=== PATIENT | female | born 1985 | race Caucasian/White ===

== ENCOUNTER 2016-12-05 22:58 | Emergency (ER) | payer OTHER ==
[2016-12-05] MEDS ORDERED: Sodium Chloride 0.9% 1000 ML 1,000 ML IV STA (23:24)
[2016-12-05] MEDS ORDERED: DILANTIN IV 250 MG/5 ML*** 1,000 MG in Sodium Chloride 0.9% 100 ML IVPB 100 ML IV ONE (23:24)
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
[2016-12-05 23:37] LABS: BASOPHIL % 0.1 % (0.0-0.4); Eosinophil % 5.8 % (0.00-5.0); Granulocytes % 66.6 % (36.0-66.0); Lymphocytes % 21.2 % (24.0-44.0); Mean Cell Volume 91.6 fl (78-100); Mean Platelet Volume 9.6 fl (6-9.5); Monocytes % 6.3 % (0.0-12.0); Platelet Count 261 K/mm3 (150-450); Red Blood Count 3.81 M/mm3 (4.1-5.4); Red Cell Distribution Width 12.3 % (11.5-14.0); White Blood Count 6.9 K/mm3 (4.0-10.5)
[2016-12-05 23:38] LABS: Mean Corpuscular Hemoglobin 31.4 pg (26-32)
[2016-12-05 23:48] LABS: Lactic Acid 2.6 (0.4-2.0)
[2016-12-05 23:56] LABS: ALKALINE PHOSPHATASE 43 U/L (46-116); ANION GAP 17.6 MEQ/L (5-15); BLOOD UREA NITROGEN 9 mg/dL (9-20); CHLORIDE 108 mEq/L (98-107); Carbon Dioxide 22.3 mEq/L (21-32); Glucose 104 MG/DL (70-110); Potassium 3.5 mEq/L (3.5-5.1); SGOT/AST 20 U/L (15-37); SGPT/ALT 19 U/L (12-78); SODIUM 144 mEq/L (136-145); Total Protein 7.3 gm/dL (6.4-8.2)
[2016-12-05] MEDS ORDERED: Sodium Chloride 0.9% 1000 ML 1,000 ML ONE (23:56)
[2016-12-05] MEDS ORDERED: Dilantin 100 MG/2 ML ONE (23:56)
[2016-12-05] MEDS ORDERED: cereBYX 50 MG/ML*** 1,000 MG in Sodium Chloride 0.9% 100 ML IVPB 100 ML IV ONE (23:57)
[2016-12-06] MEDS ORDERED: cereBYX 50 MG/ML ONE ×3 (00:11→00:26)
[2016-12-06] MEDS ORDERED: Sodium Chloride 0.9% 100 ML IVPB 100 ML IV ONE (00:23)
[2016-12-06 01:06] LABS: ADD URINE CULTURE? NO (NO); Bilirubin NEGATIVE (NEGATIVE); Blood NEGATIVE Ery/ul (0-5); COMPLETE URINE MICROSCOPIC? NO; Collection Type CLEAN CATCH; Glucose NEGATIVE (NEGATIVE); Leukocyte Esterase NEGATIVE (NEGATIVE)
[2016-12-06] MEDS ORDERED: Ativan 1 MG ONE (01:32)
[2016-12-06] MEDS: Ativan 1 MG PO ONE ×2 (01:34→01:45)
[2016-12-06 03:12] VITALS: BP 106/74; PULSE 80; O2SAT 96
== END 2016-12-06 03:00 | disposition home or self-care (01) ==
LOC: ED 22:58
DX: R56.9 Unspecified convulsions (principal); Z79.899 Other long term (current) drug therapy; Z79.891 Long term (current) use of opiate analgesic
CPT/HCPCS: 36000; 36415; 80053; 80185; 80307; 81002; 82550; 83605; 84484; 84703; 85025; 93005; 93041; 96360; 96365; 96368; 99284; 99285; G0481; J1165; Q2009; A9270-GY

== ENCOUNTER 2019-10-22 14:38 | Emergency (ER) | payer OTHER ==
[2019-10-22] MEDS ORDERED: Adacel Vial IM ONE ×2 (14:48→14:51)
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
[2019-10-22 15:12] VITALS: BP 115/68; PULSE 76; O2SAT 97
--- NOTE | 2019-10-22 21:45 | XRAY ---
Indication: Puncture wound. 3rd finger and wrist numbness. Comparison: None 3 view left hand obtained. No bony, articular, or soft tissue abnormalities.
== END 2019-10-22 15:14 | disposition home or self-care (01) ==
LOC: ED 14:38
DX: S61.412A Laceration without foreign body of left hand, initial encounter (principal); W26.0XXA Contact with knife, initial encounter
CPT/HCPCS: 12001; 73130; 90471; 90715; 99284

== ENCOUNTER 2019-11-26 01:27 | Emergency (ER) | payer OTHER ==
[2019-11-26] MEDS ORDERED: VERSED 5 MG/5 ML ONE (01:32)
[2019-11-26] MEDS ORDERED: Zofran 4 MG/2 ML VIAL IV ONE (01:34)
[2019-11-26] MEDS ORDERED: Keppra 500 MG/5 ML*** 1,000 MG in D5w 100ML Mini Bag 100 ML 100 ML IV ONE (01:34)
[2019-11-26] MEDS ORDERED: Sodium Chloride 0.9% 1000 ML 1,000 ML IV STA ×3 (01:34→03:39)
[2019-11-26] MEDS ORDERED: CEREBYX IV ONE ×2 (01:34→02:30)
[2019-11-26] MEDS ORDERED: Sodium Chloride 0.9% 1000 ML 1,000 ML ONE ×4 (01:34→05:38)
[2019-11-26] MEDS ORDERED: SODIUM CHLORIDE 0.9% IV ONE ×2 (01:34→02:30)
[2019-11-26] MEDS ORDERED: Ativan 2 MG/1 ML VIAL IV ONE (01:34)
[2019-11-26] MEDS ORDERED: Keppra 500 MG/5 ML ONE (01:37)
[2019-11-26] MEDS ORDERED: Ativan 2 MG/1 ML VIAL ONE (01:40)
[2019-11-26] MEDS ORDERED: Sodium Chloride 0.9% 100 ML IVPB 100 ML IV ONE ×2 (01:41→03:04)
--- NOTE | 2019-11-26 01:46 | ERPHSYRPT ---
- History of Present Illness Time Seen by Provider: 11/26/19 01:41 Source: patient, EMS Exam Limitations: clinical condition Physician History: pt has hx seizure disorder and was at [facility] today and had 4 seizures then went into status and was brought by ambulance to ER- seizures controlled after 2 MG versed and 2 MG Ativan IV , loading with Keppra 1000 and toping off dilantin with 250 phosphyenytoin pending level ( already taking dilantin) No sign of trauma , no fever or symptoms; No Neuro deficits some ETOh reported today. Timing/Duration: today Severity: severe Character of Deficits: none Deficits: no difficulties Baseline/Normal Cognition: alert oriented x 3 Current Cognition: alert but confused Baseline Gait: walks w/o assistance Associated Symptoms: seizures Allergies/Adverse Reactions: No Known Drug Allergies Allergy (Verified 10/22/19 14:47) Home Medications: Topiramate 25 mg [Topamax 25 MG] 0 mg PO HS 09/30/15 [History] Topiramate [Trokendi Xr] 1 ea DAILY 10/22/19 [History] Hx Tetanus, Diphtheria Vaccination/Date Given: No Hx Influenza Vaccination/Date Given: No Hx Pneumococcal Vaccination/Date Given: No - Review of Systems Constitutional: No Fever, No Chills Eyes: No Symptoms Ears, Nose, & Throat: No Symptoms Respiratory: No Cough, No Dyspnea Cardiac: No Chest Pain, No Edema, No Syncope Abdominal/Gastrointestinal: No Abdominal Pain, No Nausea, No Vomiting, No Diarrhea Genitourinary Symptoms: No Dysuria Musculoskeletal: No Back Pain, No Neck Pain Skin: No Rash Neurological: No Dizziness, No Focal Weakness, No Sensory Changes Psychological: No Symptoms Endocrine: No Symptoms Hematologic/Lymphatic: No Symptoms Immunological/Allergic: No Symptoms All Other Systems: Reviewed and Negative - Past Medical History Pertinent Past Medical History: Yes Neurological History: Seizures ENT History: No Pertinent History Cardiac History: No Pertinent History Respiratory History: No Pertinent History Endocrine Medical History: No Pertinent History Musculoskeletal History: No Pertinent History GI Medical History: Gallbladder Disease History: No Pertinent History Psycho-Social History: Anxiety, Depression, Panic Disorder Female Reproductive Disorders: Cervical Cancer Other Medical History: Last seizure was in 06/2019. Pt is taking meds. - Past Surgical History Past Surgical History: Yes Neuro Surgical History: No Pertinent History Cardiac: No Pertinent History Respiratory: No Pertinent History Gastrointestinal: Cholecystectomy Genitourinary: No Pertinent History Musculoskeletal: No Pertinent History Female Surgical History: Other - Social History Smoking Status: Never smoker How long have you smoked: 20 Exposure to second hand smoke: No Drug Use: none Patient Lives Alone: No - Female History Hx Now: No - Nursing Vital Signs Nursing Vital Signs: Initial Vital Signs Pulse Rate 78 11/26/19 01:32 Blood Pressure 117/84 11/26/19 01:32 - Francisco Coma Scale Best Eye Response (Francisco): (2) open to pain Best Verbal Response (Francisco): (4) confused conversation Best Motor Response (Francisco): (5) localizes to pain [place] Total: 11 - Physical Exam General Appearance: no apparent distress, alert Eye Exam: bilateral eye: PERRL, EOMI Ears, Nose, Throat Exam: normal ENT inspection, moist mucous membranes Neck Exam: normal inspection, non-tender, supple Respiratory: normal breath sounds, lungs clear, airway intact, No respiratory distress Cardiovascular: regular rate/rhythm, No edema Gastrointestinal: soft, No tenderness, No distention Pelvic Exam: deferred Rectal Exam: deferred Back Exam: normal inspection Extremity Exam: normal inspection, No pedal edema Peripheral Pulses: carotid (R): 2+, carotid (L): 2+, femoral (R): 2+, femoral (L): 2+, dorsalis-pedis (R): 2+, dorsalis-pedis (L): 2+ Mental Status: agitated, lethargy forming acid dumper Exam: PERRL, tongue midline Motor/Sensory: no motor deficit DTR: bicep (R): 2+, bicep (L): 2+, tricep (R): 2+, tricep (L): 2+, knee (R): 2+, knee (L): 2+, ankle (R): 2+, ankle (L): 2+ Skin Exam: normal color, warm, dry, No rash SpO2 Interpretation: normal, ABG ordered SpO2: 100 O2 Delivery: BiPap/CPAP - Course Nursing assessment & vital signs reviewed: Yes EKG Interpreted by Me: Sinus Tach, NORMAL AXIS, NORMAL INTERVALS, NORMAL QRS, Non-specific ST Changes - Radiology Exams Chest X-ray Interpretation: Reviewed by me, No Pneumonia, No Pneumothorax, Other (RUL nodule and granulomata) - CT Exams Head CT Interpretation: Tele-radiologist Report, No/Intracranial Hemorrhag Ordered Tests: Active Orders 24 hr Category Date Time Status Accucheck STAT Care 11/26/19 01:34 Active CO2 Monitoring STAT Care 11/26/19 02:00 Active Continuous Loft Operator STAT Care 11/26/19 01:36 Active Catheter-[place] Gonzalez STAT Care 11/26/19 01:34 Active EKG-ER Only STAT Care 11/26/19 01:34 Active IV Insertion STAT Care 11/26/19 01:34 Active Pulse Oximetry (ED) STAT Care 11/26/19 01:34 Active Rectal Temperature STAT Care 11/26/19 01:34 Active Seizure Precautions -SCCHED STAT Care 11/26/19 01:34 Active CHEST 1 VIEW (PORTABLE) Stat Exams 11/26/19 01:54 Taken HEAD WITHOUT CONTRAST [CT] Stat Exams 11/26/19 01:35 Taken ACETAMINOPHEN Stat Lab 11/26/19 01:48 Completed ARTERIAL BLOOD GASES Urgent Lab 11/26/19 03:33 Completed ARTERIAL BLOOD GASES Urgent Lab 11/26/19 04:35 Completed CBC W DIFF Stat Lab 11/26/19 01:48 Completed CK-Creatinine Phosphokinase Stat Lab 11/26/19 01:48 Completed CMP Stat Lab 11/26/19 01:48 Completed CULTURE,URINE Stat Lab 11/26/19 02:25 Received ETHYL ALCOHOL Stat Lab 11/26/19 01:48 Completed HCG QUALITATIVE,SERUM Stat Lab 11/26/19 01:48 Completed Lactic Acid Routine Lab 11/26/19 03:33 Completed Lactic Acid Stat Lab 11/26/19 01:48 Completed Lactic Acid Stat Lab 11/26/19 04:04 Received SALICYLATE Stat Lab 11/26/19 01:48 Completed UA W/RFX UR CULTURE Stat Lab 11/26/19 02:25 Completed Urine Triage Profile Stat Lab 11/26/19 02:25 Completed Standby STAT RT 11/26/19 02:34 Active Medication Summary Discontinued Medications Generic Name Dose Route Start Last Admin Trade Name Freq PRN Reason Stop Dose Admin Fosphenytoin Sodium Confirm 11/26/19 03:03 Cerebyx 50 Mg/Ml Administered 11/26/19 03:04 Dose 1,000 mg .ROUTE .STK-MED ONE Sodium Chloride 1,000 mls @ 999 mls/hr 11/26/19 01:34 11/26/19 04:20 Sodium Chloride 0.9% 1000 Ml IV 11/26/19 02:34 Infused .Q1H1M STA Infusion Levetiracetam 1,000 mg/ 110 mls @ 400 mls/hr 11/26/19 01:34 11/26/19 01:50 Dextrose IV 11/26/19 01:50 400 mls/hr STAT ONE Administration Fosphenytoin Sodium 250 mg/ 105 mls @ 300 mls/hr 11/26/19 01:34 11/26/19 01:58 Sodium Chloride IV 11/26/19 01:54 300 mls/hr STAT ONE Administration Sodium Chloride Confirm 11/26/19 01:41 Sodium Chloride 0.9% 100 Ml Ivpb Administered 11/26/19 01:42 Dose 100 mls @ ud IV .STK-MED ONE Sodium Chloride Confirm 11/26/19 02:28 Sodium Chloride 0.9% 1000 Ml Administered 11/26/19 02:29 Dose 1,000 mls @ ud .ROUTE .STK-MED ONE Fosphenytoin Sodium 750 mg/ 115 mls @ 300 mls/hr 11/26/19 02:30 11/26/19 03:14 Sodium Chloride IV 11/26/19 02:52 300 mls/hr STAT ONE Administration Sodium Chloride 1,000 mls @ 999 mls/hr 11/26/19 02:34 11/26/19 04:22 Sodium Chloride 0.9% 1000 Ml IV 11/26/19 03:34 Infused .Q1H1M STA Infusion Sodium Chloride Confirm 11/26/19 03:04 Sodium Chloride 0.9% 100 Ml Ivpb Administered 11/26/19 03:05 Dose 100 mls @ ud IV .STK-MED ONE Sodium Chloride 1,000 mls @ 999 mls/hr 11/26/19 03:39 11/26/19 04:08 Sodium Chloride 0.9% 1000 Ml IV 11/26/19 04:39 999 mls/hr .Q1H1M STA Administration Sodium Chloride Confirm 11/26/19 04:00 Sodium Chloride 0.9% 1000 Ml Administered 11/26/19 04:01 Dose 1,000 mls @ ud .ROUTE .STK-MED ONE Lorazepam 2 mg 11/26/19 01:34 11/26/19 01:44 Ativan 2 Mg/1 Ml Vial IV 11/26/19 01:35 2 mg STAT ONE Administration Lorazepam Confirm 11/26/19 01:40 Ativan 2 Mg/1 Ml Vial Administered 11/26/19 01:41 Dose 2 mg .ROUTE .STK-MED ONE Ondansetron HCl 4 mg 11/26/19 01:34 11/26/19 03:07 Zofran 4 Mg/2 Ml Vial IV 11/26/19 01:35 4 mg STAT ONE Administration Ondansetron HCl Confirm 11/26/19 03:05 Zofran 4 Mg/2 Ml Vial Administered 11/26/19 03:06 Dose 4 mg .ROUTE .STK-MED ONE Lab/Rad Data: Laboratory Result Diagrams 11/26/19 01:48 11/26/19 01:48 Laboratory Results 11/26/19 11/26/19 11/26/19 Range/Units 04:35 03:33 03:33 WBC (4.0-10.5) K/mm3 RBC (4.1-5.4) M/mm3 Hgb (12.0-16.0) gm/dl Hct (35-47) % MCV (78-100) fl MCH (26-32) pg MCHC (32-36) g/dl RDW (11.5-14.0) % Plt Count (150-450) K/mm3 MPV (7.5-11.0) fl Gran % (36.0-66.0) % Eos # (Auto) (0-0.5) Absolute Lymphs (auto) (1.0-4.6) Absolute Monos (auto) (0.0-1.3) Lymphocytes % (24.0-44.0) % Monocytes % (0.0-12.0) % Eosinophils % (0.00-5.0) % Basophils % (0.0-0.4) % Absolute Granulocytes (1.4-6.9) Basophils # (0-0.4) Puncture Site RIGHT BRACHIAL RIGHT BRACHIAL pCO2 45 51 H (35-45) mmHg pO2 132 H* 139 H* (75-100) mmHg Base Excess -5.0 L -4.0 L (-2.0-2.0) O2 Saturation 96.5 96.3 (94-100) g/dF ABG pH 7.29 L 7.27 L (7.35-7.45) ABG HCO3 21.6 L 23.4 (22-28) ABG O2 Sat (Measured) 98.6 99.2 (95-100) % Milo Test NOT APPLICABLE NOT APPLICABLE A-a Gradient -10 -3 a/A Ratio 1.08 1.02 Hemoglobin 11.9 11.8 Carboxyhemoglobin 1.3 1.8 (0.0-6.9) % THgb Methemoglobin 0.9 L 1.0 L (1.4-1.5) % Temperature 37.0 37.0 C POC O2 Flow Rate 25 28 % Inspiratory BiPAP 12 Expiratory BiPAP 6 Sodium (137-145) mmol/L Potassium 3.6 3.3 L (3.5-5.1) mmol/L Chloride (98-107) mmol/L Carbon Dioxide (22-30) mmol/L Anion Gap (5-15) MEQ/L BUN (7-17) mg/dL Creatinine (0.52-1.04) mg/dL Estimated GFR ML/MIN Glucose (74-106) mg/dL Lactic Acid 2.5 H (0.4-2.0) Calcium (8.4-10.2) mg/dL Total Bilirubin (0.2-1.3) mg/dL AST (14-36) U/L ALT (0-35) U/L Alkaline Phosphatase (38-126) U/L Creatine Kinase (30-135) U/L Serum Total Protein (6.3-8.2) g/dL Albumin (3.5-5.0) g/dL Serum , Qual (Negative) Urine Color (YELLOW) Urine Appearance (CLEAR) Urine pH (5-6) Ur Specific [place] (1.005-1.025) Urine Protein (Negative) Urine Ketones (NEGATIVE) Urine Blood (0-5) Rom/ul Urine Nitrite (NEGATIVE) Urine Bilirubin (NEGATIVE) Urine Urobilinogen (0-1) mg/dL Ur Leukocyte Esterase (NEGATIVE) Urine WBC (Auto) (0-5) /HPF Urine RBC (Auto) (0-2) /HPF U Epithel Cells (Auto) (FEW) /HPF Urine Bacteria (Auto) (NEGATIVE) /HPF Urine Mucus (Auto) (NEGATIVE) /HPF Urine Culture Reflexed (NO) Urine Glucose (NEGATIVE) mg/dL Salicylates (2-20) mg/dL Urine Opiates Level (NEGATIVE) Ur Methadone (NEGATIVE) Acetaminophen (10-30) ug/ml Urine Barbiturates (NEGATIVE) Phenytoin (10-20) ug/mL Ur Phencyclidine (PCP) (NEGATIVE) Urine Amphetamine (NEGATIVE) U Benzodiazepine Level (NEGATIVE) Urine Cocaine (NEGATIVE) Urine Marijuana (THC) (NEGATIVE) Ethyl Alcohol (0-10) mg/dL 11/26/19 11/26/19 11/26/19 Range/Units 02:25 02:25 01:48 WBC (4.0-10.5) K/mm3 RBC (4.1-5.4) M/mm3 Hgb (12.0-16.0) gm/dl Hct (35-47) % MCV (78-100) fl MCH (26-32) pg MCHC (32-36) g/dl RDW (11.5-14.0) % Plt Count (150-450) K/mm3 MPV (7.5-11.0) fl Gran % (36.0-66.0) % Eos # (Auto) (0-0.5) Absolute Lymphs (auto) (1.0-4.6) Absolute Monos (auto) (0.0-1.3) Lymphocytes % (24.0-44.0) % Monocytes % (0.0-12.0) % Eosinophils % (0.00-5.0) % Basophils % (0.0-0.4) % Absolute Granulocytes (1.4-6.9) Basophils # (0-0.4) Puncture Site pCO2 (35-45) mmHg pO2 (75-100) mmHg Base Excess (-2.0-2.0) O2 Saturation (94-100) g/dF ABG pH (7.35-7.45) ABG HCO3 (22-28) ABG O2 Sat (Measured) (95-100) % Milo Test A-a Gradient a/A Ratio Hemoglobin Carboxyhemoglobin (0.0-6.9) % THgb Methemoglobin (1.4-1.5) % Temperature C POC O2 Flow Rate % Inspiratory BiPAP Expiratory BiPAP Sodium (137-145) mmol/L Potassium (3.5-5.1) mmol/L Chloride (98-107) mmol/L Carbon Dioxide (22-30) mmol/L Anion Gap (5-15) MEQ/L BUN (7-17) mg/dL Creatinine (0.52-1.04) mg/dL Estimated GFR ML/MIN Glucose (74-106) mg/dL Lactic Acid (0.4-2.0) Calcium (8.4-10.2) mg/dL Total Bilirubin (0.2-1.3) mg/dL AST (14-36) U/L ALT (0-35) U/L Alkaline Phosphatase (38-126) U/L Creatine Kinase (30-135) U/L Serum Total Protein (6.3-8.2) g/dL Albumin (3.5-5.0) g/dL Serum , Qual NEGATIVE (Negative) Urine Color STRAW (YELLOW) Urine Appearance CLEAR (CLEAR) Urine pH 5.0 (5-6) Ur Specific [place] 1.004 (1.005-1.025) Urine Protein NEGATIVE (Negative) Urine Ketones NEGATIVE (NEGATIVE) Urine Blood NEGATIVE (0-5) Rom/ul Urine Nitrite NEGATIVE (NEGATIVE) Urine Bilirubin NEGATIVE (NEGATIVE) Urine Urobilinogen NEGATIVE (0-1) mg/dL Ur Leukocyte Esterase NEGATIVE (NEGATIVE) Urine WBC (Auto) NONE (0-5) /HPF Urine RBC (Auto) NONE (0-2) /HPF U Epithel Cells (Auto) NONE (FEW) /HPF Urine Bacteria (Auto) NONE SEEN (NEGATIVE) /HPF Urine Mucus (Auto) SLIGHT (NEGATIVE) /HPF Urine Culture Reflexed ORDERED SEPARATELY (NO) Urine Glucose NEGATIVE (NEGATIVE) mg/dL Salicylates (2-20) mg/dL Urine Opiates Level NEGATIVE (NEGATIVE) Ur Methadone NEGATIVE (NEGATIVE) Acetaminophen (10-30) ug/ml Urine Barbiturates NEGATIVE (NEGATIVE) Phenytoin (10-20) ug/mL Ur Phencyclidine (PCP) NEGATIVE (NEGATIVE) Urine Amphetamine NEGATIVE (NEGATIVE) U Benzodiazepine Level NEGATIVE (NEGATIVE) Urine Cocaine NEGATIVE (NEGATIVE) Urine Marijuana (THC) NEGATIVE (NEGATIVE) Ethyl Alcohol (0-10) mg/dL 11/26/19 11/26/19 11/26/19 Range/Units 01:48 01:48 01:48 WBC (4.0-10.5) K/mm3 RBC (4.1-5.4) M/mm3 Hgb (12.0-16.0) gm/dl Hct (35-47) % MCV (78-100) fl MCH (26-32) pg MCHC (32-36) g/dl RDW (11.5-14.0) % Plt Count (150-450) K/mm3 MPV (7.5-11.0) fl Gran % (36.0-66.0) % Eos # (Auto) (0-0.5) Absolute Lymphs (auto) (1.0-4.6) Absolute Monos (auto) (0.0-1.3) Lymphocytes % (24.0-44.0) % Monocytes % (0.0-12.0) % Eosinophils % (0.00-5.0) % Basophils % (0.0-0.4) % Absolute Granulocytes (1.4-6.9) Basophils # (0-0.4) Puncture Site pCO2 (35-45) mmHg pO2 (75-100) mmHg Base Excess (-2.0-2.0) O2 Saturation (94-100) g/dF ABG pH (7.35-7.45) ABG HCO3 (22-28) ABG O2 Sat (Measured) (95-100) % Milo Test A-a Gradient a/A Ratio Hemoglobin Carboxyhemoglobin (0.0-6.9) % THgb Methemoglobin (1.4-1.5) % Temperature C POC O2 Flow Rate % Inspiratory BiPAP Expiratory BiPAP Sodium 141 (137-145) mmol/L Potassium 3.6 (3.5-5.1) mmol/L Chloride 108 H (98-107) mmol/L Carbon Dioxide 21 L (22-30) mmol/L Anion Gap 16.0 H (5-15) MEQ/L BUN 9 (7-17) mg/dL Creatinine 0.48 L (0.52-1.04) mg/dL Estimated GFR > 60.0 ML/MIN Glucose 82 (74-106) mg/dL Lactic Acid 5.7 H (0.4-2.0) Calcium 8.7 (8.4-10.2) mg/dL Total Bilirubin 0.30 (0.2-1.3) mg/dL AST 37 H (14-36) U/L ALT 23 (0-35) U/L Alkaline Phosphatase 36 L (38-126) U/L Creatine Kinase 212 H (30-135) U/L Serum Total Protein 7.6 (6.3-8.2) g/dL Albumin 4.5 (3.5-5.0) g/dL Serum , Qual (Negative) Urine Color (YELLOW) Urine Appearance (CLEAR) Urine pH (5-6) Ur Specific [place] (1.005-1.025) Urine Protein (Negative) Urine Ketones (NEGATIVE) Urine Blood (0-5) Rom/ul Urine Nitrite (NEGATIVE) Urine Bilirubin (NEGATIVE) Urine Urobilinogen (0-1) mg/dL Ur Leukocyte Esterase (NEGATIVE) Urine WBC (Auto) (0-5) /HPF Urine RBC (Auto) (0-2) /HPF U Epithel Cells (Auto) (FEW) /HPF Urine Bacteria (Auto) (NEGATIVE) /HPF Urine Mucus (Auto) (NEGATIVE) /HPF Urine Culture Reflexed (NO) Urine Glucose (NEGATIVE) mg/dL Salicylates < 1.0 L (2-20) mg/dL Urine Opiates Level (NEGATIVE) Ur Methadone (NEGATIVE) Acetaminophen < 10 L (10-30) ug/ml Urine Barbiturates (NEGATIVE) Phenytoin < 3.0 L (10-20) ug/mL Ur Phencyclidine (PCP) (NEGATIVE) Urine Amphetamine (NEGATIVE) U Benzodiazepine Level (NEGATIVE) Urine Cocaine (NEGATIVE) Urine Marijuana (THC) (NEGATIVE) Ethyl Alcohol 212 H (0-10) mg/dL 11/26/19 Range/Units 01:48 WBC 10.4 (4.0-10.5) K/mm3 RBC 3.75 L (4.1-5.4) M/mm3 Hgb 12.3 (12.0-16.0) gm/dl Hct 36.3 (35-47) % MCV 96.8 (78-100) fl MCH 32.8 H (26-32) pg MCHC 33.9 (32-36) g/dl RDW 11.9 (11.5-14.0) % Plt Count 251 (150-450) K/mm3 MPV 9.9 (7.5-11.0) fl Gran % 67.2 H (36.0-66.0) % Eos # (Auto) 0.12 (0-0.5) Absolute Lymphs (auto) 2.65 (1.0-4.6) Absolute Monos (auto) 0.61 (0.0-1.3) Lymphocytes % 25.5 (24.0-44.0) % Monocytes % 5.9 (0.0-12.0) % Eosinophils % 1.2 (0.00-5.0) % Basophils % 0.2 (0.0-0.4) % Absolute Granulocytes 6.98 H (1.4-6.9) Basophils # 0.02 (0-0.4) Puncture Site pCO2 (35-45) mmHg pO2 (75-100) mmHg Base Excess (-2.0-2.0) O2 Saturation (94-100) g/dF ABG pH (7.35-7.45) ABG HCO3 (22-28) ABG O2 Sat (Measured) (95-100) % Milo Test A-a Gradient a/A Ratio Hemoglobin Carboxyhemoglobin (0.0-6.9) % THgb Methemoglobin (1.4-1.5) % Temperature C POC O2 Flow Rate % Inspiratory BiPAP Expiratory BiPAP Sodium (137-145) mmol/L Potassium (3.5-5.1) mmol/L Chloride (98-107) mmol/L Carbon Dioxide (22-30) mmol/L Anion Gap (5-15) MEQ/L BUN (7-17) mg/dL Creatinine (0.52-1.04) mg/dL Estimated GFR ML/MIN Glucose (74-106) mg/dL Lactic Acid (0.4-2.0) Calcium (8.4-10.2) mg/dL Total Bilirubin (0.2-1.3) mg/dL AST (14-36) U/L ALT (0-35) U/L Alkaline Phosphatase (38-126) U/L Creatine Kinase (30-135) U/L Serum Total Protein (6.3-8.2) g/dL Albumin (3.5-5.0) g/dL Serum , Qual (Negative) Urine Color (YELLOW) Urine Appearance (CLEAR) Urine pH (5-6) Ur Specific [place] (1.005-1.025) Urine Protein (Negative) Urine Ketones (NEGATIVE) Urine Blood (0-5) Rom/ul Urine Nitrite (NEGATIVE) Urine Bilirubin (NEGATIVE) Urine Urobilinogen (0-1) mg/dL Ur Leukocyte Esterase (NEGATIVE) Urine WBC (Auto) (0-5) /HPF Urine RBC (Auto) (0-2) /HPF U Epithel Cells (Auto) (FEW) /HPF Urine Bacteria (Auto) (NEGATIVE) /HPF Urine Mucus (Auto) (NEGATIVE) /HPF Urine Culture Reflexed (NO) Urine Glucose (NEGATIVE) mg/dL Salicylates (2-20) mg/dL Urine Opiates Level (NEGATIVE) Ur Methadone (NEGATIVE) Acetaminophen (10-30) ug/ml Urine Barbiturates (NEGATIVE) Phenytoin (10-20) ug/mL Ur Phencyclidine (PCP) (NEGATIVE) Urine Amphetamine (NEGATIVE) U Benzodiazepine Level (NEGATIVE) Urine Cocaine (NEGATIVE) Urine Marijuana (THC) (NEGATIVE) Ethyl Alcohol (0-10) mg/dL - Progress Progress: improved, re-examined Progress Note: 11/26/19 04:31 DIscussed with torres, STEPHANIE Parrish, and Saman Carrasco at [place] and none could accept pt due to no Neuro solution developer; Contacted [facility] awaiting return call 11/26/19 05:02 pt accepted by [facility] and discussed with Dr. Diaz the Neurologist accepting and will transfer by [facility] Discussed with Dr.: Other (Dr. Diaz) Will see patient in: hospital (full admit) Counseled pt/family regarding: lab results, diagnosis, need for follow-up, rad results - Departure Departure Disposition: Transfer Clinical Impression: Status epilepticus, RUL nodule Condition: Critical Critical Care Time: Yes Critical Care Time(excluding separately billable procedures): Critical 165-194 mins (management of status epilepticus and airway requiring continuous one on one support) Referrals: DOCTOR,NO FAMILY [Primary Care Provider] -
[2019-11-26] MEDS ORDERED: D5w 100ML Mini Bag 100 ML 100 ML IV ONE (01:47)
[2019-11-26] MEDS ORDERED: cereBYX 50 MG/ML ONE ×2 (01:48→03:03)
[2019-11-26 01:51] LABS: Absolute Neutrophil Ct (ANC) 6.98 (1.4-6.9); BASOPHIL % 0.2 % (0.0-0.4); Basophil (Absolute #) 0.02 (0-0.4); Eosinophil % 1.2 % (0.00-5.0); Eosinophil (Absolute #) 0.12 (0-0.5); Hematocrit 36.3 % (35-47); Hemoglobin 12.3 gm/dl (12.0-16.0); Lymphocyte (Absolute #) 2.65 (1.0-4.6); Lymphocytes % 25.5 % (24.0-44.0); Mean Cell Volume 96.8 fl (78-100); Mean Corpuscular Hemoglobin 32.8 pg (26-32); Mean Corpuscular Hgb Concent. 33.9 g/dl (32-36); Mean Platelet Volume 9.9 fl (7.5-11.0); Monocyte (Absolute #) 0.61 (0.0-1.3); Monocytes % 5.9 % (0.0-12.0); Neutrophil % 67.2 % (36.0-66.0); Platelet Count 251 K/mm3 (150-450); Red Blood Count 3.75 M/mm3 (4.1-5.4); Red Cell Distribution Width 11.9 % (11.5-14.0); White Blood Count 10.4 K/mm3 (4.0-10.5)
[2019-11-26 02:03] LABS: ALBUMIN 4.5 g/dL (3.5-5.0); ALKALINE PHOSPHATASE 36 U/L (38-126); BLOOD UREA NITROGEN 9 mg/dL (7-17); CHLORIDE 108 mmol/L (98-107); CK-Creatinine Phosphokinase 212 U/L (30-135); Calcium 8.7 mg/dL (8.4-10.2); Carbon Dioxide 21 mmol/L (22-30); Creatinine 1 0.48 mg/dL (0.52-1.04); ETHYL ALCOHOL 212 mg/dL (0-10); Glucose 82 mg/dL (74-106); Potassium 3.6 mmol/L (3.5-5.1); SGOT/AST 37 U/L (14-36); SGPT/ALT 23 U/L (0-35); SODIUM 141 mmol/L (137-145); Total Protein 7.6 g/dL (6.3-8.2)
[2019-11-26 02:22] LABS: ACETAMINOPHEN < 10 ug/ml (10-30); SALICYLATE < 1.0 mg/dL (2-20)
[2019-11-26 02:32] LABS: Appearance CLEAR (CLEAR); Bilirubin NEGATIVE (NEGATIVE); Blood NEGATIVE Ery/ul (0-5); Glucose NEGATIVE (NEGATIVE); Ketones NEGATIVE (NEGATIVE); Leukocyte Esterase NEGATIVE (NEGATIVE); Mucus SLIGHT /HPF (NEGATIVE); Nitrite NEGATIVE (NEGATIVE); Protein,Urine Dip NEGATIVE (Negative); Specific Gravity 1.004 (1.005-1.025); Urobilinogen NEGATIVE mg/dL (0-1)
[2019-11-26 02:33] LABS: Bacteria NONE SEEN /HPF (NEGATIVE)
[2019-11-26 02:45] LABS: Amphetamine,Urine NEGATIVE (NEGATIVE); Barbiturate,Urine NEGATIVE (NEGATIVE); Benzodiazepine,Urine NEGATIVE (NEGATIVE); Cocaine,Urine NEGATIVE (NEGATIVE); Methadone,Urine NEGATIVE (NEGATIVE); Opiate,Urine NEGATIVE (NEGATIVE); PCP,Urine NEGATIVE (NEGATIVE); THC,Urine NEGATIVE (NEGATIVE)
[2019-11-26] MEDS ORDERED: Zofran 4 MG/2 ML VIAL ONE (03:05)
[2019-11-26 03:40] LABS: A-aADO2 -3; ABG HEMOGLOBIN 11.8; ABG POTASSIUM 3.3 (3.5-5.1); ARTERIAL BLD GAS O2 SATURATION 99.2 % (95-100); ARTERIAL BLOOD GAS FIO2 28 %; ARTERIAL BLOOD GAS PCO2 51 mmHg (35-45); ARTERIAL BLOOD GAS PO2 139 mmHg (75-100); ARTERIAL BLOOD GAS pH 7.27 (7.35-7.45); CARBOXYHEMOGLOBIN 1.8 % THgb (0.0-6.9); HCO3- 23.4 (22-28); HGB O2 SAT 96.3 g/dF (94-100); paO2 pAO1 1.02
[2019-11-26 03:41] LABS: ABG SITE RIGHT BRACHIAL
[2019-11-26 04:15] VITALS: O2SAT 100
[2019-11-26 04:44] LABS: A-aADO2 -10; ABG HEMOGLOBIN 11.9; ABG POTASSIUM 3.6 (3.5-5.1); ABG SITE RIGHT BRACHIAL; ARTERIAL BLD GAS O2 SATURATION 98.6 % (95-100); ARTERIAL BLOOD GAS FIO2 25 %; ARTERIAL BLOOD GAS PCO2 45 mmHg (35-45); ARTERIAL BLOOD GAS PO2 132 mmHg (75-100); ARTERIAL BLOOD GAS pH 7.29 (7.35-7.45); CARBOXYHEMOGLOBIN 1.3 % THgb (0.0-6.9); HCO3- 21.6 (22-28); HGB O2 SAT 96.5 g/dF (94-100); Methhemoglobin 0.9 % (1.4-1.5); paO2 pAO1 1.08
[2019-11-26 06:08] VITALS: BP 108/71; PULSE 78
--- NOTE | 2019-11-26 06:44 | XRAY ---
Indication: Seizure. Apnea. Comparison: None Portable chest demonstrates normal heart, lungs, and bony thorax. Incidentally a few tiny calcified granulomas and bilateral jugular access IVs.
--- NOTE | 2019-11-26 06:44 | XRAY ---
Indication: Seizure. Apnea. Alcohol. Multiple contiguous axial images obtained through the head without contrast. Comparison: December 18, 2009. Normal appearing brain parenchyma, ventricles, and bony calvarium. Visualized paranasal sinuses and mastoid air cells are clear. Impression: Continued normal CT head without contrast exam. Comment: Preliminary interpretation was made by [facility]. No critical discrepancy.
== END 2019-11-26 06:10 | disposition short-term general hospital (02) ==
LOC: ED 01:27
DX: G40.801 Other epilepsy, not intractable, with status epilepticus (principal); R91.1 Solitary pulmonary nodule
CPT/HCPCS: 36000; 36415; 36600; 51702; 70450; 71045; 80053; 80185; 80307; 81001; 81025; 82375; 82550; 82803; 82962; 83605; 85025; 87086; 93005; 93041; 94002; 94760; 94770; 94799; 96360; 96361; 96365; 96367; 96374; 96375; 99285; 99291; 99292; J1953; J2060; J2250; J2405; Q2009; G0480

== ENCOUNTER 2020-01-27 20:13 | Observation (INO) | payer OTHER ==
[2020-01-27] MEDS ORDERED: cereBYX 50 MG/ML*** 500 MG in Sodium Chloride 0.9% 100 ML IVPB 100 ML IV ONE ×2 (20:19→21:33)
[2020-01-27] MEDS ORDERED: Sodium Chloride 0.9% 1000 ML 1,000 ML IV STA (20:19)
[2020-01-27] MEDS ORDERED: Keppra 500 MG/5 ML*** 1,000 MG in D5w 100ML Mini Bag 100 ML 100 ML IV ONE (20:19)
[2020-01-27] MEDS ORDERED: Ativan 2 MG/1 ML VIAL IV ONE (20:19)
--- NOTE | 2020-01-27 20:19 | ERPHSYRPT ---
- History of Present Illness Time Seen by Provider: 01/27/20 20:14 Source: patient, other (friends) Exam Limitations: clinical condition Physician History: pt was seen here for seizures about a month ago and [facility]- which have recurred tonight . she states she is on dilantin but had stopped keppra, but inview of seizures we are re-loading both. she hit head during seizure and will need CT. she has no neuro deficits. Timing/Duration: today Severity: severe Character of Deficits: none Deficits: no difficulties Baseline/Normal Cognition: alert but confused Current Cognition: alert but confused Baseline Gait: walks w/o assistance Associated Symptoms: seizures Allergies/Adverse Reactions: No Known Drug Allergies Allergy (Verified 10/22/19 14:47) Home Medications: Topiramate 25 mg [Topamax 25 MG] 0 mg PO HS 09/30/15 [History] Topiramate [Trokendi Xr] 1 ea DAILY 10/22/19 [History] Hx Tetanus, Diphtheria Vaccination/Date Given: No Hx Influenza Vaccination/Date Given: No Hx Pneumococcal Vaccination/Date Given: No - Review of Systems Constitutional: No Fever, No Chills Eyes: No Symptoms Ears, Nose, & Throat: No Symptoms Respiratory: No Cough, No Dyspnea Cardiac: No Chest Pain, No Edema, No Syncope Abdominal/Gastrointestinal: No Abdominal Pain, No Nausea, No Vomiting, No Diarrhea Genitourinary Symptoms: No Dysuria Musculoskeletal: No Back Pain, No Neck Pain Skin: No Rash Neurological: No Dizziness, No Focal Weakness, No Sensory Changes Psychological: No Symptoms Endocrine: No Symptoms All Other Systems: Reviewed and Negative - Past Medical History Pertinent Past Medical History: Yes Neurological History: Seizures ENT History: No Pertinent History Cardiac History: No Pertinent History Respiratory History: No Pertinent History Endocrine Medical History: No Pertinent History Musculoskeletal History: No Pertinent History GI Medical History: Gallbladder Disease History: No Pertinent History Psycho-Social History: Anxiety, Depression, Panic Disorder Female Reproductive Disorders: Cervical Cancer Other Medical History: Last seizure was in 06/2019. Pt is taking meds. - Past Surgical History Past Surgical History: Yes Neuro Surgical History: No Pertinent History Cardiac: No Pertinent History Respiratory: No Pertinent History Gastrointestinal: Cholecystectomy Genitourinary: No Pertinent History Musculoskeletal: No Pertinent History Female Surgical History: Other - Social History Smoking Status: Never smoker How long have you smoked: 20 Exposure to second hand smoke: No Drug Use: none Patient Lives Alone: No - Nursing Vital Signs Nursing Vital Signs: Initial Vital Signs Temperature 97.3 F 01/27/20 20:13 Pulse Rate 111 H 01/27/20 20:13 Respiratory Rate 20 01/27/20 20:13 Blood Pressure 137/83 01/27/20 20:13 O2 Sat by Pulse Oximetry 100 01/27/20 20:13 Pain Scale Pain Intensity 0 - Francisco Coma Scale Best Eye Response (Francisco): (4) open spontaneously Best Verbal Response (Morrice): (5) oriented Best Motor Response (Francisco): (6) obeys commands Morrice Total: 15 - Physical Exam General Appearance: no apparent distress, alert, other (intermit seizures) Eye Exam: bilateral eye: PERRL, EOMI Ears, Nose, Throat Exam: normal ENT inspection, moist mucous membranes Neck Exam: normal inspection, non-tender, supple Respiratory: normal breath sounds, lungs clear, airway intact, No respiratory distress Cardiovascular: regular rate/rhythm, No edema Gastrointestinal: soft, No tenderness, No distention Back Exam: normal inspection Extremity Exam: normal inspection, No pedal edema 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, 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: 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 midline Coordination/Gait: normal finger to nose, normal gait Skin Exam: normal color, warm, dry, No rash - Course Nursing assessment & vital signs reviewed: Yes EKG Interpreted by Me: Sinus Tach, NORMAL AXIS, NORMAL INTERVALS, Non-specific ST Changes - CT Exams Head CT Interpretation: Tele-radiologist Report, No Fracture, No/Intracranial Hemorrhag Cervical Spine CT Interpretation: Tele-radiologist Report, No Fracture, No Subluxation Ordered Tests: Active Orders 24 hr Category Date Time Status Assistant Service Manager STAT Care 01/27/20 20:20 Active Catheter-[place]ide Gonzalez STAT Care 01/27/20 20:19 Active EKG-ER Only STAT Care 01/27/20 20:19 Active IV Insertion STAT Care 01/27/20 20:19 Active NPO (ED) STAT Care 01/27/20 20:19 Active POCT Glucose Check STAT Care 01/27/20 20:19 Active Pulse Oximetry (ED) STAT Care 01/27/20 20:19 Active Seizure Precautions -SCCHED STAT Care 01/27/20 20:19 Active CERVICAL SPINE WO CONTRAST [CT] Stat Exams 01/27/20 20:20 Taken HEAD WITHOUT CONTRAST [CT] Stat Exams 01/27/20 20:19 Taken CBC W DIFF Stat Lab 01/27/20 20:14 Completed CMP Stat Lab 01/27/20 20:14 Completed CULTURE,URINE Stat Lab 01/27/20 02:45 Received ETHYL ALCOHOL Stat Lab 01/27/20 20:45 Completed HCG QUALITATIVE,SERUM Stat Lab 01/27/20 20:14 Completed Lactic Acid Stat Lab 01/27/20 20:19 Completed Lactic Acid Stat Lab 01/27/20 22:26 Received POCT GLUCOSE Stat Lab 01/27/20 21:10 Completed UA W/RFX UR CULTURE Stat Lab 01/27/20 20:45 Completed Urine Triage Profile Stat Lab 01/27/20 20:45 Completed Medication Summary Generic Name Dose Route Start Last Admin Trade Name Freq PRN Reason Stop Dose Admin Dextrose 500 mls @ 50 mls/hr 01/27/20 21:30 01/27/20 21:32 Dextrose 5%/Water Iv Soln. 500 Ml IV 02/26/20 21:29 50 mls/hr .Q10H ROB Administration Discontinued Medications Generic Name Dose Route Start Last Admin Trade Name Freq PRN Reason Stop Dose Admin Fosphenytoin Sodium Confirm 01/27/20 22:59 Cerebyx 50 Mg/Ml Administered 01/27/20 23:00 Dose 500 mg .ROUTE .STK-MED ONE Sodium Chloride 1,000 mls @ 999 mls/hr 01/27/20 20:19 Sodium Chloride 0.9% 1000 Ml IV 01/27/20 21:19 .Q1H1M STA Fosphenytoin Sodium 500 mg/ 110 mls @ 300 mls/hr 01/27/20 20:19 01/27/20 20:13 Sodium Chloride IV 01/27/20 20:40 300 mls/hr STAT ONE Administration Levetiracetam 1,000 mg/ 110 mls @ 400 mls/hr 01/27/20 20:19 01/27/20 21:25 Dextrose IV 01/27/20 20:35 400 mls/hr STAT ONE Administration Dextrose Confirm 01/27/20 21:11 D5w 100ml Mini Bag 100 Ml Administered 01/27/20 21:12 Dose 100 mls @ ud IV .STK-MED ONE Fosphenytoin Sodium 500 mg/ 110 mls @ 300 mls/hr 01/27/20 21:33 01/27/20 23:01 Sodium Chloride IV 01/27/20 21:54 300 mls/hr STAT ONE Administration Sodium Chloride Confirm 01/27/20 22:59 Sodium Chloride 0.9% 100 Ml Ivpb Administered 01/27/20 23:00 Dose 100 mls @ ud IV .STK-MED ONE Levetiracetam Confirm 01/27/20 21:09 Keppra 500 Mg/5 Ml Administered 01/27/20 21:10 Dose 500 mg .ROUTE .STK-MED ONE Levetiracetam Confirm 01/27/20 21:11 Keppra 500 Mg/5 Ml Administered 01/27/20 21:12 Dose 500 mg .ROUTE .STK-MED ONE Lorazepam 2 mg 01/27/20 20:19 Ativan 2 Mg/1 Ml Vial IV 01/27/20 20:20 STAT ONE Lab/Rad Data: Laboratory Result Diagrams 01/27/20 20:14 01/27/20 20:14 Laboratory Results 01/27/20 01/27/20 01/27/20 Range/Units 21:10 20:45 20:45 WBC (4.0-10.5) K/mm3 RBC (4.1-5.4) M/mm3 Hgb (12.0-16.0) gm/dl Hct (35-47) % MCV (78-100) fl MCH (26-32) pg MCHC (32-36) g/dl RDW (11.5-14.0) % Plt Count (150-450) K/mm3 MPV (7.5-11.0) fl Gran % (36.0-66.0) % Eos # (Auto) (0-0.5) Absolute Lymphs (auto) (1.0-4.6) Absolute Monos (auto) (0.0-1.3) Lymphocytes % (24.0-44.0) % Monocytes % (0.0-12.0) % Eosinophils % (0.00-5.0) % Basophils % (0.0-0.4) % Absolute Granulocytes (1.4-6.9) Basophils # (0-0.4) Sodium (137-145) mmol/L Potassium (3.5-5.1) mmol/L Chloride (98-107) mmol/L Carbon Dioxide (22-30) mmol/L Anion Gap (5-15) MEQ/L BUN (7-17) mg/dL Creatinine (0.52-1.04) mg/dL Estimated GFR ML/MIN Glucose (74-106) mg/dL POC Glucometer 96 (74 to 106) mg/dL Lactic Acid (0.4-2.0) Calcium (8.4-10.2) mg/dL Total Bilirubin (0.2-1.3) mg/dL AST (14-36) U/L ALT (0-35) U/L Alkaline Phosphatase (38-126) U/L Serum Total Protein (6.3-8.2) g/dL Albumin (3.5-5.0) g/dL Serum , Qual (Negative) Urine Color (YELLOW) Urine Appearance (CLEAR) Urine pH (5-6) Ur Specific [place] (1.005-1.025) Urine Protein (Negative) Urine Ketones (NEGATIVE) Urine Blood (0-5) Rom/ul Urine Nitrite (NEGATIVE) Urine Bilirubin (NEGATIVE) Urine Urobilinogen (0-1) mg/dL Ur Leukocyte Esterase (NEGATIVE) Urine WBC (Auto) (0-5) /HPF Urine RBC (Auto) (0-2) /HPF U Epithel Cells (Auto) (FEW) /HPF Urine Bacteria (Auto) (NEGATIVE) /HPF Urine Culture Reflexed (NO) Urine Glucose (NEGATIVE) mg/dL Urine Opiates Level NEGATIVE (NEGATIVE) Ur Methadone NEGATIVE (NEGATIVE) Urine Barbiturates NEGATIVE (NEGATIVE) Phenytoin (10-20) ug/mL Ur Phencyclidine (PCP) NEGATIVE (NEGATIVE) Urine Amphetamine NEGATIVE (NEGATIVE) U Benzodiazepine Level POSITIVE (NEGATIVE) Urine Cocaine NEGATIVE (NEGATIVE) Urine Marijuana (THC) NEGATIVE (NEGATIVE) Ethyl Alcohol 223 H (0-10) mg/dL 01/27/20 01/27/20 01/27/20 Range/Units 20:45 20:19 20:14 WBC (4.0-10.5) K/mm3 RBC (4.1-5.4) M/mm3 Hgb (12.0-16.0) gm/dl Hct (35-47) % MCV (78-100) fl MCH (26-32) pg MCHC (32-36) g/dl RDW (11.5-14.0) % Plt Count (150-450) K/mm3 MPV (7.5-11.0) fl Gran % (36.0-66.0) % Eos # (Auto) (0-0.5) Absolute Lymphs (auto) (1.0-4.6) Absolute Monos (auto) (0.0-1.3) Lymphocytes % (24.0-44.0) % Monocytes % (0.0-12.0) % Eosinophils % (0.00-5.0) % Basophils % (0.0-0.4) % Absolute Granulocytes (1.4-6.9) Basophils # (0-0.4) Sodium (137-145) mmol/L Potassium (3.5-5.1) mmol/L Chloride (98-107) mmol/L Carbon Dioxide (22-30) mmol/L Anion Gap (5-15) MEQ/L BUN (7-17) mg/dL Creatinine (0.52-1.04) mg/dL Estimated GFR ML/MIN Glucose (74-106) mg/dL POC Glucometer (74 to 106) mg/dL Lactic Acid 6.7 H (0.4-2.0) Calcium (8.4-10.2) mg/dL Total Bilirubin (0.2-1.3) mg/dL AST (14-36) U/L ALT (0-35) U/L Alkaline Phosphatase (38-126) U/L Serum Total Protein (6.3-8.2) g/dL Albumin (3.5-5.0) g/dL Serum , Qual NEGATIVE (Negative) Urine Color STRAW (YELLOW) Urine Appearance CLEAR (CLEAR) Urine pH 5.0 (5-6) Ur Specific [place] 1.003 (1.005-1.025) Urine Protein NEGATIVE (Negative) Urine Ketones NEGATIVE (NEGATIVE) Urine Blood SMALL (0-5) Rom/ul Urine Nitrite NEGATIVE (NEGATIVE) Urine Bilirubin NEGATIVE (NEGATIVE) Urine Urobilinogen NEGATIVE (0-1) mg/dL Ur Leukocyte Esterase NEGATIVE (NEGATIVE) Urine WBC (Auto) NONE SEEN (0-5) /HPF Urine RBC (Auto) NONE SEEN (0-2) /HPF U Epithel Cells (Auto) OCCASIONAL (FEW) /HPF Urine Bacteria (Auto) NONE SEEN (NEGATIVE) /HPF Urine Culture Reflexed NO (NO) Urine Glucose NEGATIVE (NEGATIVE) mg/dL Urine Opiates Level (NEGATIVE) Ur Methadone (NEGATIVE) Urine Barbiturates (NEGATIVE) Phenytoin (10-20) ug/mL Ur Phencyclidine (PCP) (NEGATIVE) Urine Amphetamine (NEGATIVE) U Benzodiazepine Level (NEGATIVE) Urine Cocaine (NEGATIVE) Urine Marijuana (THC) (NEGATIVE) Ethyl Alcohol (0-10) mg/dL 01/27/20 01/27/20 01/27/20 Range/Units 20:14 20:14 20:14 WBC 7.2 (4.0-10.5) K/mm3 RBC 4.11 (4.1-5.4) M/mm3 Hgb 13.4 (12.0-16.0) gm/dl Hct 39.7 (35-47) % MCV 96.6 (78-100) fl MCH 32.6 H (26-32) pg MCHC 33.8 (32-36) g/dl RDW 11.9 (11.5-14.0) % Plt Count 321 (150-450) K/mm3 MPV 9.6 (7.5-11.0) fl Gran % 58.9 (36.0-66.0) % Eos # (Auto) 0.22 (0-0.5) Absolute Lymphs (auto) 2.14 (1.0-4.6) Absolute Monos (auto) 0.55 (0.0-1.3) Lymphocytes % 29.8 (24.0-44.0) % Monocytes % 7.6 (0.0-12.0) % Eosinophils % 3.1 (0.00-5.0) % Basophils % 0.6 (0.0-0.4) % Absolute Granulocytes 4.24 (1.4-6.9) Basophils # 0.04 (0-0.4) Sodium 140 (137-145) mmol/L Potassium 3.7 (3.5-5.1) mmol/L Chloride 108 H (98-107) mmol/L Carbon Dioxide 19 L (22-30) mmol/L Anion Gap 17.1 H (5-15) MEQ/L BUN 4 L (7-17) mg/dL Creatinine 0.56 (0.52-1.04) mg/dL Estimated GFR > 60.0 ML/MIN Glucose 34 L* (74-106) mg/dL POC Glucometer (74 to 106) mg/dL Lactic Acid (0.4-2.0) Calcium 9.1 (8.4-10.2) mg/dL Total Bilirubin 0.70 (0.2-1.3) mg/dL AST 34 (14-36) U/L ALT 27 (0-35) U/L Alkaline Phosphatase 36 L (38-126) U/L Serum Total Protein 7.7 (6.3-8.2) g/dL Albumin 4.8 (3.5-5.0) g/dL Serum , Qual (Negative) Urine Color (YELLOW) Urine Appearance (CLEAR) Urine pH (5-6) Ur Specific [place] (1.005-1.025) Urine Protein (Negative) Urine Ketones (NEGATIVE) Urine Blood (0-5) Rom/ul Urine Nitrite (NEGATIVE) Urine Bilirubin (NEGATIVE) Urine Urobilinogen (0-1) mg/dL Ur Leukocyte Esterase (NEGATIVE) Urine WBC (Auto) (0-5) /HPF Urine RBC (Auto) (0-2) /HPF U Epithel Cells (Auto) (FEW) /HPF Urine Bacteria (Auto) (NEGATIVE) /HPF Urine Culture Reflexed (NO) Urine Glucose (NEGATIVE) mg/dL Urine Opiates Level (NEGATIVE) Ur Methadone (NEGATIVE) Urine Barbiturates (NEGATIVE) Phenytoin 3.0 L (10-20) ug/mL Ur Phencyclidine (PCP) (NEGATIVE) Urine Amphetamine (NEGATIVE) U Benzodiazepine Level (NEGATIVE) Urine Cocaine (NEGATIVE) Urine Marijuana (THC) (NEGATIVE) Ethyl Alcohol (0-10) mg/dL - Progress Progress: improved, re-examined Progress Note: 01/27/20 20:48 pt had several seizures of 30 sec to 3 minutes in length until controlled after 2 MG versed and 2 MG ativan x 2 and loading of dilantin ( fosphenytoin and keppra were begun. This required Critical care monitoring since the level of sedation required was high. 01/27/20 21:05 glucose was 34 and will give d5 and recheck - may have played a role along with etoh and not eating to precip seizures. 01/27/20 21:11 repeat glucose is 96. 01/28/20 00:46 the [facility] have neuro suppport and [facility]ctor did not have available as well - this process took a few hours to determine, but gave us time to observe the pt and she had no furhter seizures and became responsive after t his time . We discussed with Dr. Greenwood and all agree to place the pt in for obs and teleneuro in am and observe for any neuro findings and continue dilantin . Discussed with : Turner Will see patient in: hospital (observation) Counseled pt/family regarding: drug and/or alcohol abuse, lab results, diagnosis, need for follow-up, rad results - Departure Departure Disposition: Observation Clinical Impression: Seizure, Recurrent seizures, Subtherapeutic serum dilantin level, Hypoglycemia Condition: Good Critical Care Time: Yes Critical Care Time(excluding separately billable procedures): Critical 105-134 mins (crit care to control seizures, monitor pulse ox and neuro status for 120 minutes of the time in ER) Referrals: DOCTOR,NO FAMILY [Primary Care Provider] -
[2020-01-27 20:43] LABS: Absolute Neutrophil Ct (ANC) 4.24 (1.4-6.9); BASOPHIL % 0.6 % (0.0-0.4); Basophil (Absolute #) 0.04 (0-0.4); Eosinophil % 3.1 % (0.00-5.0); Eosinophil (Absolute #) 0.22 (0-0.5); Hematocrit 39.7 % (35-47); Hemoglobin 13.4 gm/dl (12.0-16.0); Lymphocyte (Absolute #) 2.14 (1.0-4.6); Lymphocytes % 29.8 % (24.0-44.0); Mean Cell Volume 96.6 fl (78-100); Mean Corpuscular Hemoglobin 32.6 pg (26-32); Mean Corpuscular Hgb Concent. 33.8 g/dl (32-36); Mean Platelet Volume 9.6 fl (7.5-11.0); Monocyte (Absolute #) 0.55 (0.0-1.3); Monocytes % 7.6 % (0.0-12.0); Neutrophil % 58.9 % (36.0-66.0); Platelet Count 321 K/mm3 (150-450); Red Blood Count 4.11 M/mm3 (4.1-5.4); Red Cell Distribution Width 11.9 % (11.5-14.0); White Blood Count 7.2 K/mm3 (4.0-10.5)
[2020-01-27 20:56] LABS: ALBUMIN 4.8 g/dL (3.5-5.0); ALKALINE PHOSPHATASE 36 U/L (38-126); ANION GAP 17.1 MEQ/L (5-15); BLOOD UREA NITROGEN 4 mg/dL (7-17); CHLORIDE 108 mmol/L (98-107); Calcium 9.1 mg/dL (8.4-10.2); Carbon Dioxide 19 mmol/L (22-30); Creatinine 1 0.56 mg/dL (0.52-1.04); EST GLOMERULAR FILTRATION RATE > 60.0 ML/MIN; Potassium 3.7 mmol/L (3.5-5.1); SGOT/AST 34 U/L (14-36); SGPT/ALT 27 U/L (0-35); SODIUM 140 mmol/L (137-145); Total Protein 7.7 g/dL (6.3-8.2)
[2020-01-27 20:59] LABS: Appearance CLEAR (CLEAR); Bilirubin NEGATIVE (NEGATIVE); Blood SMALL Ery/ul (0-5); Glucose NEGATIVE (NEGATIVE); Ketones NEGATIVE (NEGATIVE); Leukocyte Esterase NEGATIVE (NEGATIVE); Nitrite NEGATIVE (NEGATIVE); Protein,Urine Dip NEGATIVE (Negative); Specific Gravity 1.003 (1.005-1.025); Urobilinogen NEGATIVE mg/dL (0-1)
[2020-01-27 21:03] LABS: Glucose 34 mg/dL (74-106)
[2020-01-27 21:04] LABS: Epithelial Cells OCCASIONAL /HPF (FEW); RBC NONE SEEN /HPF (0-2); WBC NONE SEEN /HPF (0-5)
[2020-01-27 21:05] LABS: Bacteria NONE SEEN /HPF (NEGATIVE)
[2020-01-27] MEDS ORDERED: Keppra 500 MG/5 ML ONE ×2 (21:09→21:11)
[2020-01-27] MEDS ORDERED: D5w 100ML Mini Bag 100 ML 100 ML IV ONE (21:11)
[2020-01-27 21:14] LABS: Amphetamine,Urine NEGATIVE (NEGATIVE); Barbiturate,Urine NEGATIVE (NEGATIVE); Benzodiazepine,Urine POSITIVE (NEGATIVE); Cocaine,Urine NEGATIVE (NEGATIVE); Methadone,Urine NEGATIVE (NEGATIVE); Opiate,Urine NEGATIVE (NEGATIVE); PCP,Urine NEGATIVE (NEGATIVE); THC,Urine NEGATIVE (NEGATIVE)
[2020-01-27] MEDS: Dextrose 5%/Water IV Soln. 500 ML 500 ML IV SCH (21:32)
[2020-01-27] MEDS ORDERED: Sodium Chloride 0.9% 100 ML IVPB 100 ML IV ONE (22:59)
[2020-01-27] MEDS ORDERED: cereBYX 50 MG/ML ONE (22:59)
[2020-01-28] MEDS ORDERED: TYLENOL EXTRA STRENGTH 500 MG ONE (02:51)
[2020-01-28] MEDS ORDERED: TYLENOL EXTRA STRENGTH 500 MG PO STA (02:52)
[2020-01-28] MEDS ORDERED: TYLENOL 325 MG PO PRN (03:44)
[2020-01-28] MEDS ORDERED: HUMULIN R SQ PRN (03:44)
[2020-01-28] MEDS: Dextrose 5%/Water IV Soln. 500 ML 500 ML IV SCH (04:32)
[2020-01-28 06:05] LABS: Absolute Neutrophil Ct (ANC) 7.67 (1.4-6.9); BASOPHIL % 0.2 % (0.0-0.4); Basophil (Absolute #) 0.02 (0-0.4); Eosinophil % 2.2 % (0.00-5.0); Eosinophil (Absolute #) 0.23 (0-0.5); Hematocrit 37.3 % (35-47); Hemoglobin 12.6 gm/dl (12.0-16.0); Lymphocyte (Absolute #) 1.86 (1.0-4.6); Lymphocytes % 17.6 % (24.0-44.0); Mean Cell Volume 96.6 fl (78-100); Mean Corpuscular Hemoglobin 32.6 pg (26-32); Mean Corpuscular Hgb Concent. 33.8 g/dl (32-36); Mean Platelet Volume 9.4 fl (7.5-11.0); Monocyte (Absolute #) 0.76 (0.0-1.3); Monocytes % 7.2 % (0.0-12.0); Neutrophil % 72.8 % (36.0-66.0); Platelet Count 270 K/mm3 (150-450); Red Blood Count 3.86 M/mm3 (4.1-5.4); White Blood Count 10.5 K/mm3 (4.0-10.5)
[2020-01-28 06:12] LABS: ALBUMIN 4.2 g/dL (3.5-5.0); ALKALINE PHOSPHATASE 30 U/L (38-126); ANION GAP 7.7 MEQ/L (5-15); BLOOD UREA NITROGEN 7 mg/dL (7-17); CHLORIDE 106 mmol/L (98-107); Calcium 8.6 mg/dL (8.4-10.2); Carbon Dioxide 28 mmol/L (22-30); Creatinine 1 0.46 mg/dL (0.52-1.04); EST GLOMERULAR FILTRATION RATE > 60.0 ML/MIN; Glucose 91 mg/dL (74-106); SGOT/AST 31 U/L (14-36); SGPT/ALT 25 U/L (0-35); SODIUM 138 mmol/L (137-145); Total Protein 6.9 g/dL (6.3-8.2)
[2020-01-28 07:29] VITALS: BP 107/62; O2SAT 97
--- NOTE | 2020-01-28 07:31 | XRAY ---
Indication: Intractable seizures. Head injury. Alcohol. Multiple contiguous axial images obtained through the cervical spine. Sagittal and coronal reformatted images obtained. Comparison: December 18, 2009. Several images slightly degraded by motion artifact. Axial images grossly negative for acute fracture, suspicious bony lesions, or spinal canal stenosis. There is now minimal C6-C7 endplate spurring. Sagittal and coronal reformatted images again demonstrate cervical lordotic reversal, positional versus paraspinal spasm. There is minimal C6-C7 disc space narrowing. No acute compression fracture, subluxation, or jumped facet. Normal appearing craniocervical junction. Visualized noncontrasted soft tissues including lung apices are unremarkable. Impression: 1. Motion artifact. 2. Cervical lordotic reversal, positional versus paraspinal spasm. 3. Grossly negative for acute fracture/subluxation. 4. Minimal C6-C7 degenerative changes. Comment: Preliminary interpretation was made by [facility]. No critical discrepancy.
--- NOTE | 2020-01-28 07:31 | XRAY ---
Indication: Intractable seizures. Head injury. Alcohol. Multiple contiguous axial images obtained through the head without contrast. Comparison: November 26, 2019. Again normal appearing brain parenchyma, ventricles, and bony calvarium. Visualized paranasal sinuses and mastoid air cells are clear. Impression: Continued normal CT head without contrast exam. Comment: Preliminary interpretation was made by [facility]. No critical discrepancy.
[2020-01-28 09:34] VITALS: PULSE 89
[2020-01-28] MEDS ORDERED: ZOFRAN ODT 4 MG PO PRN (09:42)
[2020-01-28] MEDS ORDERED: VERSED 5 MG/5 ML IV ONE (09:58)
[2020-01-28] MEDS ORDERED: METRONIDAZOLE 250 MG PO SCH (10:00)
[2020-01-28] MEDS ORDERED: BUSPAR 5 MG PO SCH (10:00)
[2020-01-28] MEDS ORDERED: Keppra 250 MG PO SCH (10:00)
[2020-01-28] MEDS ORDERED: Dilantin 100 MG PO SCH (10:00)
[2020-01-28] MEDS ORDERED: Flagyl 500 MG PO SCH (10:00)
[2020-01-28] MEDS ORDERED: Ativan 2 MG/1 ML VIAL IV ONE (11:11)
--- NOTE | 2020-01-28 21:54 | PCM.HP ---
History of Present Illness - Chief Complaint Chief Complaint: recurrent seizure, subtherapeutic dilantin Date: 01/28/20 History of Present Illness: is a 34 year old female seen in hospital following admission for the second time in two months for status epilepticus. 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 She was on dilantan for these seizures up until a few months ago. She reports that the last time this happened she didnt take her meds for two days. This time she states she is no longer on dilantin that she is on keppra. She reports that Dr Juan is using her as a "guinea pig" and took her off the dilantin. Patient reports that she does not understand why. She reports that she does not normally drink alcohol like she was last night. She reports that she is an every day drinker but usually its a couple of beers a day. Patient reports that she hit her head and it still hurts but denies any other pain anywhere. Patient wants to leave. - Review of Systems Constitutional: No Symptoms Eyes: No Symptoms Ears, Nose, & Throat: No Symptoms Respiratory: No Symptoms Cardiac: No Symptoms Abdominal/Gastrointestinal: No Symptoms Genitourinary Symptoms: Other (chronic bv hx of kidney stones) Musculoskeletal: Back Pain (hx of scoliosis) Neurological: Headache, Seizure Psychological: Alcohol Abuse, Drug Abuse (reported in the past) Medications & Allergies Home Medications: Home Medication List Buspirone HCl 5 mg [Buspar 5 mg] 10 mg PO TID 01/28/20 [History Confirmed 01/28/20] Levetiracetam 500 mg PO BID 01/28/20 [History Confirmed 01/28/20] Ondansetron [Ondansetron Odt] 4 mg PO Q6HPRN PRN 01/28/20 [History Confirmed 01/28/20] Topiramate [Trokendi Xr] 100 mg PO HS 01/28/20 [History Confirmed 01/28/20] metroNIDAZOLE [Metronidazole] 250 mg PO DAILY 01/28/20 [History Confirmed 01/28/20] Allergies/Adverse Reactions: Allergies Allergy/AdvReac Type Severity Reaction Status Date / Time No Known Drug Allergies Allergy Verified 10/22/19 14:47 - Past Medical History Past Medical History: Yes Neurological History: Seizures ENT History: No Pertinent History Cardiac History: No Pertinent History Respiratory History: No Pertinent History Endocrine Medical History: No Pertinent History Musculoskelatal History: No Pertinent History GI Medical History: Gallbladder Disease History: No Pertinent History Pyscho-Social History: Anxiety, Depression, Panic Disorder Reproductive Disorders: Cervical Cancer Comment: Last seizure was in 11/2019. Pt is taking meds. - Female History Are you now?: No - Past Surgical History Past Surgical History: Yes Neuro Surgical History: No Pertinent History Cardiac History: No Pertinent History Respiratory Surgery: No Pertinent History GI Surgical History: Cholecystectomy Genitourinary Surgical Hx: No Pertinent History Musculskeletal Surgical Hx: No Pertinent History Female Surgical History: Other - Social History Smoking Status: Unknown if ever smoked How long have you smoked: 20 Exposure to second hand smoke: No Alcohol: Occasionally Drug Use: none - Physical Exam Vital Signs: Vital Signs - 24 hr Temp Pulse Resp BP Pulse Ox 01/28/20 08:00 89 01/28/20 07:28 99.1 F 87 17 107/62 97 01/28/20 04:40 98.6 F 102 H 15 105/73 99 01/28/20 03:25 86 16 101/64 97 01/28/20 02:51 90 16 98/66 98 01/28/20 01:48 98.1 F 98 H 18 96/67 98 01/28/20 01:14 98.1 F 86 18 92/63 98 01/28/20 00:18 97.9 F 84 18 94/61 98 01/27/20 23:40 97.5 F 97 H 20 91/62 98 01/27/20 22:49 97.3 F 102 H 20 93/63 01/27/20 22:15 97.3 F 100 H 20 110/67 98 01/27/20 22:00 97.3 F 101 H 20 93/61 97 General Appearance: no apparent distress Neurologic Exam: alert, oriented x 3, uncooperative (Patient had been admitted to the hospital less than 8 hours and was requesting to leave have her catheter out refused any additional testing.), other (contusion back of head) Eye Exam: eyes nml inspection Ears, Nose, Throat Exam: moist mucous membranes Cardiovascular Exam: regular rate/rhythm Gastrointestinal/Abdomen Exam: soft, normal bowel sounds, No tenderness, No distention Pelvic Exam: not done Rectal Exam: not done Back Exam: other (scoliosis) Extremity Exam: No pedal edema, No swelling, No tenderness Skin Exam: normal color, warm, dry, No rash Results - Labs Lab/Micro Results: Lab Results-Last 24 Hours 01/27/20 01/28/20 01/28/20 Range/Units 22:26 01:02 05:36 WBC 10.5 (4.0-10.5) K/mm3 RBC 3.86 L (4.1-5.4) M/mm3 Hgb 12.6 (12.0-16.0) gm/dl Hct 37.3 (35-47) % MCV 96.6 (78-100) fl MCH 32.6 H (26-32) pg MCHC 33.8 (32-36) g/dl RDW 12.0 (11.5-14.0) % Plt Count 270 (150-450) K/mm3 MPV 9.4 (7.5-11.0) fl Gran % 72.8 H (36.0-66.0) % Eos # (Auto) 0.23 (0-0.5) Absolute Lymphs (auto) 1.86 (1.0-4.6) Absolute Monos (auto) 0.76 (0.0-1.3) Lymphocytes % 17.6 L (24.0-44.0) % Monocytes % 7.2 (0.0-12.0) % Eosinophils % 2.2 (0.00-5.0) % Basophils % 0.2 (0.0-0.4) % Absolute Granulocytes 7.67 H (1.4-6.9) Basophils # 0.02 (0-0.4) Sodium (137-145) mmol/L Potassium (3.5-5.1) mmol/L Chloride (98-107) mmol/L Carbon Dioxide (22-30) mmol/L Anion Gap (5-15) MEQ/L BUN (7-17) mg/dL Creatinine (0.52-1.04) mg/dL Estimated GFR ML/MIN Glucose (74-106) mg/dL POC Glucometer 94 (74 to 106) mg/dL Lactic Acid 0.8 (0.4-2.0) Calcium (8.4-10.2) mg/dL Total Bilirubin (0.2-1.3) mg/dL AST (14-36) U/L ALT (0-35) U/L Alkaline Phosphatase (38-126) U/L Creatine Kinase (30-135) U/L Serum Total Protein (6.3-8.2) g/dL Albumin (3.5-5.0) g/dL Phenytoin (10-20) ug/mL 01/28/20 01/28/20 01/28/20 Range/Units 05:36 07:25 10:15 WBC (4.0-10.5) K/mm3 RBC (4.1-5.4) M/mm3 Hgb (12.0-16.0) gm/dl Hct (35-47) % MCV (78-100) fl MCH (26-32) pg MCHC (32-36) g/dl RDW (11.5-14.0) % Plt Count (150-450) K/mm3 MPV (7.5-11.0) fl Gran % (36.0-66.0) % Eos # (Auto) (0-0.5) Absolute Lymphs (auto) (1.0-4.6) Absolute Monos (auto) (0.0-1.3) Lymphocytes % (24.0-44.0) % Monocytes % (0.0-12.0) % Eosinophils % (0.00-5.0) % Basophils % (0.0-0.4) % Absolute Granulocytes (1.4-6.9) Basophils # (0-0.4) Sodium 138 (137-145) mmol/L Potassium 4.0 (3.5-5.1) mmol/L Chloride 106 (98-107) mmol/L Carbon Dioxide 28 (22-30) mmol/L Anion Gap 7.7 (5-15) MEQ/L BUN 7 (7-17) mg/dL Creatinine 0.46 L (0.52-1.04) mg/dL Estimated GFR > 60.0 ML/MIN Glucose 91 (74-106) mg/dL POC Glucometer 103 (74 to 106) mg/dL Lactic Acid (0.4-2.0) Calcium 8.6 (8.4-10.2) mg/dL Total Bilirubin 0.30 (0.2-1.3) mg/dL AST 31 (14-36) U/L ALT 25 (0-35) U/L Alkaline Phosphatase 30 L (38-126) U/L Creatine Kinase 41 (30-135) U/L Serum Total Protein 6.9 (6.3-8.2) g/dL Albumin 4.2 (3.5-5.0) g/dL Phenytoin (10-20) ug/mL 10/11/20 Range/Units 10:15 WBC (4.0-10.5) K/mm3 RBC (4.1-5.4) M/mm3 Hgb (12.0-16.0) gm/dl Hct (35-47) % MCV (78-100) fl MCH (26-32) pg MCHC (32-36) g/dl RDW (11.5-14.0) % Plt Count (150-450) K/mm3 MPV (7.5-11.0) fl Gran % (36.0-66.0) % Eos # (Auto) (0-0.5) Absolute Lymphs (auto) (1.0-4.6) Absolute Monos (auto) (0.0-1.3) Lymphocytes % (24.0-44.0) % Monocytes % (0.0-12.0) % Eosinophils % (0.00-5.0) % Basophils % (0.0-0.4) % Absolute Granulocytes (1.4-6.9) Basophils # (0-0.4) Sodium (137-145) mmol/L Potassium (3.5-5.1) mmol/L Chloride (98-107) mmol/L Carbon Dioxide (22-30) mmol/L Anion Gap (5-15) MEQ/L BUN (7-17) mg/dL Creatinine (0.52-1.04) mg/dL Estimated GFR ML/MIN Glucose (74-106) mg/dL POC Glucometer (74 to 106) mg/dL Lactic Acid (0.4-2.0) Calcium (8.4-10.2) mg/dL Total Bilirubin (0.2-1.3) mg/dL AST (14-36) U/L ALT (0-35) U/L Alkaline Phosphatase (38-126) U/L Creatine Kinase (30-135) U/L Serum Total Protein (6.3-8.2) g/dL Albumin (3.5-5.0) g/dL Phenytoin 12.2 (10-20) ug/mL Accuchecks Date 01/28/20 Time 07:30 - Radiology Impressions Radiology Exams & Impressions: Radiology Procedures Category Date Time Status CERVICAL SPINE WO CONTRAST [CT] Stat Exams 01/27/20 20:20 Completed HEAD WITHOUT CONTRAST [CT] Stat Exams 01/27/20 20:19 Completed - Other Procedures and Tests Respiratory Therapy 01/28/20 03:44 Oxygen Nasal Cannula 2 lpm Assessment/Plan (1) Recurrent seizures Status: Acute Assessment & Plan: Patient had been admitted for less than 8 hours and was requesting to leave. I discussed with her that due to her seizure activity reported in ER and the fact that this is the second hospital admission in 2 months time for uncontrolled seizure activity that it would be against medical advice to leave as I had not had a chance to have fully evaluate the patient's medications get additional imaging labs and referrals and have a neurology consult. Patient refused and wan cassandra to sign out AMA. I advised that she is at risk for more seizures and potential due to status epilepticus. Patient told nurse " I know my body". and signed out AMA. She was not sent on any medications as I was unable to obtain additional labs. She sees Lacey Russ NP for PCP and Dr Juan for neuro Also discussed potential causes including ETOH abuse as patient is an every day alcohol drinker. She states that she has had substance abuse issues in the past but does not at this time. Hypoglycemia was unexplained. Unable to get any additional studies and no follow up was set up. Code(s): G40.909 - EPILEPSY, UNSP, NOT INTRACTABLE, WITHOUT STATUS EPILEPTICUS (2) ETOH abuse Status: Acute Code(s): F10.10 - ALCOHOL ABUSE, UNCOMPLICATED (3) Microscopic hematuria Status: Acute Code(s): R31.29 - OTHER MICROSCOPIC HEMATURIA (4) Hypoglycemia Status: Acute Code(s): E16.2 - HYPOGLYCEMIA, UNSPECIFIED (5) Seizure Status: Acute Code(s): R56.9 - UNSPECIFIED CONVULSIONS (6) Status epilepticus Status: Acute Code(s): G40.901 - EPILEPSY, UNSP, NOT INTRACTABLE, WITH STATUS EPILEPTICUS (7) Subtherapeutic serum dilantin level Status: Acute Code(s): R78.89 - FINDING OF OTH SUBSTANCES, NOT NORMALLY FOUND IN BLOOD
[2020-01-28] MEDS ORDERED: TOPIRAMATE PO SCH (22:00)
[2020-01-28] MEDS ORDERED: TOPIRAMATE 100 MG PO SCH (22:00)
== END 2020-01-28 11:12 | disposition left against medical advice (07) ==
LOC: ED 20:13 → ICU 01-28 03:36
PROVIDERS: ADMIT Family Medicine; ATTEND Family Medicine
DX: G40.909 Epilepsy, unspecified, not intractable, without status epilepticus (principal); R51.9 Headache, unspecified; Z79.899 Other long term (current) drug therapy; S00.93XA Contusion of unspecified part of head, initial encounter; E16.2 Hypoglycemia, unspecified; F10.10 Alcohol abuse, uncomplicated; R31.29 Other microscopic hematuria
CPT/HCPCS: 51702; 70450; 72125; 80053; 80185; 80307; 81001; 81025; 82550; 82962; 83605; 85025; 87086; 93005; 93041; 93268; 96360; 96361; 96365; 96366; 96367; 99291; 99292; G0378; 36000; 36415; 94760; 99285; J1953; J2060; J2250; Q2009; A9270-GY; G0480

== ENCOUNTER 2020-07-07 01:21 | Emergency (ER) | payer SELFPAY ==
[2020-07-07] MEDS ORDERED: Sodium Chloride 0.9% 1000 ML 1,000 ML IV STA (02:03)
[2020-07-07] MEDS ORDERED: Sodium Chloride 0.9% 1000 ML 1,000 ML ONE (02:06)
--- NOTE | 2020-07-07 02:12 | ERPHSYRPT ---
- History of Present Illness Time Seen by Provider: 07/07/20 02:09 Source: patient, EMS Exam Limitations: no limitations Patient Subjective Stated Complaint: "I had a seizure." Triage Nursing Assessment: EMS [place] that [place] had what was reported to be seizure-like activity. The patient does have a known history of seizures and is compliant with her current medication regimen. No reported trauma. Patient is alert and interactive upon arrival. pupils 5mm brisk direct/consensual reaction to light. Oral mucosa pink/moist with noted alcohol halitosis. Symmetrical chest expansion. heart tones regular/clear. Lungs vesicular without adventitious sounds. Abdomen soft non- tender. Peripheral pulses +2 bilateral. no noted dependent edema. Physician History: c/o seizure activity at [facility] while drinking alcohol. EMS reported that the [place] she had what was reported to be seizure-like activity. The patient does have a known history of seizures and is compliant with her current medication regimen. No reported trauma. She has few alcoholic drinks today Timing/Duration: today Allergies/Adverse Reactions: No Known Drug Allergies Allergy (Verified 10/22/19 14:47) Home Medications: Buspirone HCl 5 mg [Buspar 5 mg] 10 mg PO TID 01/28/20 [History] Topiramate [Trokendi Xr] 100 mg PO HS 01/28/20 [History] metroNIDAZOLE [Metronidazole] 250 mg PO DAILY 01/28/20 [History] Phenytoin Sodium Extended [Dilantin] 2 cap PO BID 07/07/20 [History] Hx Tetanus, Diphtheria Vaccination/Date Given: No Hx Influenza Vaccination/Date Given: Yes Hx Pneumococcal Vaccination/Date Given: No Travel Risk - International Travel Have you traveled outside of the country in past 3 weeks: No - Coronavirus Screening Are you exhibiting any of the following symptoms?: No Close contact with a COVID-19 positive Pt in past 14-21 Days: No - Review of Systems Constitutional: Lethargy, No Fever, No Chills Eyes: No Symptoms Ears, Nose, & Throat: No Symptoms Respiratory: No Cough, No Dyspnea Cardiac: No Chest Pain, No Edema, No Syncope Abdominal/Gastrointestinal: No Abdominal Pain, No Nausea, No Vomiting, No Di arrhea Genitourinary Symptoms: No Dysuria Musculoskeletal: No Back Pain, No Neck Pain Skin: No Rash Neurological: Seizure, No Dizziness, No Focal Weakness, No Sensory Changes Psychological: No Symptoms Endocrine: No Symptoms All Other Systems: Reviewed and Negative - Past Medical History Pertinent Past Medical History: Yes Neurological History: Seizures ENT History: No Pertinent History Cardiac History: No Pertinent History Respiratory History: No Pertinent History Endocrine Medical History: No Pertinent History Musculoskeletal History: No Pertinent History GI Medical History: Gallbladder Disease History: No Pertinent History Psycho-Social History: Anxiety, Depression, Panic Disorder Female Reproductive Disorders: Breast Cancer, Cervical Cancer Other Medical History: Last seizure was in 11/2019. Pt is taking meds. - Past Surgical History Past Surgical History: Yes Neuro Surgical History: No Pertinent History Cardiac: No Pertinent History Respiratory: No Pertinent History Gastrointestinal: Cholecystectomy Genitourinary: No Pertinent History Musculoskeletal: No Pertinent History Female Surgical History: Tubal Ligation, Lumpectomy, Other Other Surgical History: Lumpectomy of the right breast. Lymph nodes intact. - Social History Smoking Status: Never smoker How long have you smoked: 20 Exposure to second hand smoke: No Drug Use: none Patient Lives Alone: Yes - Female History Hx Now: No (hx of ablation) - Nursing Vital Signs Nursing Vital Signs: Initial Vital Signs Temperature 98.4 F 07/07/20 01:21 Pulse Rate 87 07/07/20 01:21 Respiratory Rate 16 07/07/20 01:21 Blood Pressure 109/74 07/07/20 01:21 O2 Sat by Pulse Oximetry 99 07/07/20 01:21 Pain Scale Pain Intensity 3 - Physical Exam General Appearance: mild distress, alert, anxiety Eye Exam: PERRL/EOMI, eyes nml inspection Ears, Nose, Throat Exam: normal ENT inspection, TMs normal, pharynx normal, moist mucous membranes Neck Exam: normal inspection, non-tender, supple, full range of motion Respiratory Exam: normal breath sounds, lungs clear, No respiratory distress Cardiovascular Exam: regular rate/rhythm, normal heart sounds, normal peripheral pulses Gastrointestinal/Abdomen Exam: soft, normal bowel sounds, No tenderness, No mass Back Exam: normal inspection, normal range of motion, No CVA tenderness, No vertebral tenderness Extremity Exam: normal inspection, normal range of motion, pelvis stable Neurologic Exam: alert, oriented x 3, cooperative, sensation nml, disoriented, confusion, No motor deficits, No sensory deficit Skin Exam: normal color, warm, dry, No rash Lymphatic Exam: No adenopathy SpO2: 99 - Course Nursing assessment & vital signs reviewed: Yes Ordered Tests: Active Orders 24 hr Category Date Time Status Clean Catch Urine Specimen STAT Care 07/07/20 02:03 Active CBC W DIFF Stat Lab 07/07/20 02:23 Completed CMP Stat Lab 07/07/20 02:23 Completed ETHYL ALCOHOL Stat Lab 07/07/20 02:23 Completed Urine Triage Profile Stat Lab 07/07/20 02:04 Received Medication Summary Generic Name Dose Route Start Last Admin Trade Name Freq PRN Reason Stop Dose Admin Sodium Chloride 1,000 mls @ 999 mls/hr 07/07/20 02:03 07/07/20 02:09 Sodium Chloride 0.9% 1000 Ml IV 07/07/20 03:03 999 mls/hr .[id number] STA Administration Discontinued Medications Generic Name Dose Route Start Last Admin Trade Name Freq PRN Reason Stop Dose Admin Sodium Chloride Confirm 07/07/20 02:06 Sodium Chloride 0.9% 1000 Ml Administered 07/07/20 02:07 Dose 1,000 mls @ ud .ROUTE .STK-MED ONE Lab/Rad Data: Laboratory Result Diagrams 07/07/20 02:23 07/07/20 02:23 Laboratory Results 07/07/20 07/07/20 Range/Units 02:23 02:23 WBC 7.6 (4.0-10.5) K/mm3 RBC 3.74 L (4.1-5.4) M/mm3 Hgb 12.0 (12.0-16.0) gm/dl Hct 35.9 (35-47) % MCV 96.0 (78-100) fl MCH 32.1 H (26-32) pg MCHC 33.4 (32-36) g/dl RDW 11.4 L (11.5-14.0) % Plt Count 246 (150-450) K/mm3 MPV 9.2 (7.5-11.0) fl Gran % 56.8 (36.0-66.0) % Eos # (Auto) 0.20 (0-0.5) Absolute Lymphs (auto) 2.47 (1.0-4.6) Absolute Monos (auto) 0.58 (0.0-1.3) Lymphocytes % 32.6 (24.0-44.0) % Monocytes % 7.7 (0.0-12.0) % Eosinophils % 2.6 (0.00-5.0) % Basophils % 0.3 (0.0-0.4) % Absolute Granulocytes 4.30 (1.4-6.9) Basophils # 0.02 (0-0.4) Sodium 145 (137-145) mmol/L Potassium 3.9 (3.5-5.1) mmol/L Chloride 108 H (98-107) mmol/L Carbon Dioxide 29 (22-30) mmol/L Anion Gap 12.8 (5-15) MEQ/L BUN 9 (7-17) mg/dL Creatinine 0.56 (0.52-1.04) mg/dL Estimated GFR > 60.0 ML/MIN Glucose 89 (74-106) mg/dL Calcium 9.0 (8.4-10.2) mg/dL Total Bilirubin < 0.10 L (0.2-1.3) mg/dL AST 28 (14-36) U/L ALT 21 (0-35) U/L Alkaline Phosphatase 31 L (38-126) U/L Serum Total Protein 7.3 (6.3-8.2) g/dL Albumin 4.2 (3.5-5.0) g/dL Ethyl Alcohol 198 H (0-10) mg/dL - Progress Progress: improved Counseled pt/family regarding: drug and/or alcohol abuse, lab results, diagnosis, need for follow-up - Departure Departure Disposition: Home Clinical Impression: ETOH abuse, Seizure Condition: Stable Critical Care Time: Yes Critical Care Time(excluding separately billable procedures): Critical 30-74 mins Referrals: DOCTOR,NO FAMILY [Primary Care Provider] - Instructions: Seizures, Adult (DC), Alcohol Abuse and Alcoholism (DC), Alcohol Poisoning, Effects of Alcohol on Your Health Additional Instructions: LALITO REA was seen on 07/07/20 n the Emergency Room. At that time you were treated for an emergent condition, during your visit Laboratory, Radiology and/or other procedures may have been ordered. It is very important that you follow-up with your Primary Care Physician NO FAMILY DOCTOR within the next 24- 48 hours to review your Emergency Room visit and the final results of testing that was ordered. Some test results such as Urine Cultures, Blood Cultures, and other cultures if ordered will not be finalized for 24-48 hours. If you do not have a Primary Care Provider please call the medical records department at [phone] ext [phone] to obtain a copy of your results or you may sign into our patient portal to obtain these results by visiting us @ [email or web address] and completing the following steps: 1. Click on the Patient Portal link 2. Click the Patient Self Enrollment Link to complete the enrollment form and entering your 3. Once the enrollment form is completed you will receive an email with a temporary ID and password at the email address you provided. 4. Next choose a user name and password. Your user name must be at least 4 characters long and your password must be at least 4 characters long. 5. Choose a security question from the list and provide your answer to the question. If you already have signed into the Health Portal you may access your Health Care Information 09/11 by the following steps: 1. Login to our website @ [email or web address] 2. Enter your original user name and password. FAQS The [facility] Health Portal is an online tool that contains your Lab Results, Radiology Reports, Visit History, Discharge Instructions and Health Summary Lab and Radiology Results will not be available for 72 hours on the portal. The Portal is a secure site, passwords are encryted and URLs are re-written so they cannot be copied and pasted. You and authorized family members are the only ones who can access your Portal. Also there is a timeout feature that protects your information if you leave the Portal page open. If you have technical difficulty please use the Contact Us link on the page this will allow you to submit any questions you have regarding the Portal or you may contact the Medical Record Department at [phone] ext [phone].
[2020-07-07 02:27] LABS: BASOPHIL % 0.3 % (0.0-0.4); Basophil (Absolute #) 0.02 (0-0.4); Eosinophil % 2.6 % (0.00-5.0); Hematocrit 35.9 % (35-47); Lymphocyte (Absolute #) 2.47 (1.0-4.6); Lymphocytes % 32.6 % (24.0-44.0); Mean Corpuscular Hemoglobin 32.1 pg (26-32); Mean Corpuscular Hgb Concent. 33.4 g/dl (32-36); Mean Platelet Volume 9.2 fl (7.5-11.0); Monocyte (Absolute #) 0.58 (0.0-1.3); Monocytes % 7.7 % (0.0-12.0); Neutrophil % 56.8 % (36.0-66.0); Platelet Count 246 K/mm3 (150-450); Red Blood Count 3.74 M/mm3 (4.1-5.4); Red Cell Distribution Width 11.4 % (11.5-14.0); White Blood Count 7.6 K/mm3 (4.0-10.5)
[2020-07-07 02:30] VITALS: PULSE 82
[2020-07-07 02:39] LABS: Opiate,Urine NEGATIVE (NEGATIVE); PCP,Urine NEGATIVE (NEGATIVE)
[2020-07-07 02:49] LABS: ALBUMIN 4.2 g/dL (3.5-5.0); ALKALINE PHOSPHATASE 31 U/L (38-126); ANION GAP 12.8 MEQ/L (5-15); BILIRUBIN,TOTAL < 0.10 mg/dL (0.2-1.3); BLOOD UREA NITROGEN 9 mg/dL (7-17); CHLORIDE 108 mmol/L (98-107); Carbon Dioxide 29 mmol/L (22-30); Creatinine 1 0.56 mg/dL (0.52-1.04); EST GLOMERULAR FILTRATION RATE > 60.0 ML/MIN; ETHYL ALCOHOL 198 mg/dL (0-10); Glucose 89 mg/dL (74-106); Potassium 3.9 mmol/L (3.5-5.1); SGOT/AST 28 U/L (14-36); SGPT/ALT 21 U/L (0-35); SODIUM 145 mmol/L (137-145); Total Protein 7.3 g/dL (6.3-8.2)
[2020-07-07 02:55] LABS: Amphetamine,Urine NEGATIVE (NEGATIVE); Barbiturate,Urine NEGATIVE (NEGATIVE); Benzodiazepine,Urine NEGATIVE (NEGATIVE); THC,Urine NEGATIVE (NEGATIVE)
[2020-07-07 03:04] VITALS: O2SAT 99
[2020-07-07 03:28] VITALS: BP 94/61
[2020-07-07 04:26] LABS: Cocaine,Urine NEGATIVE (NEGATIVE); Methadone,Urine NEGATIVE (NEGATIVE)
== END 2020-07-07 03:30 | disposition home or self-care (01) ==
LOC: ED 01:21
DX: F10.10 Alcohol abuse, uncomplicated (principal); G40.909 Epilepsy, unspecified, not intractable, without status epilepticus
CPT/HCPCS: 36415; 80053; 80307; 85025; 96360; 99284; 99291; G0480

== ENCOUNTER 2023-08-26 18:18 | Emergency (ER) | payer BC ==
[2023-08-26 18:35] VITALS: TEMP 98.5
[2023-08-26] MEDS ORDERED: DUONEB 0.5-3 MG/3 ml Neb IH ONE (18:52)
[2023-08-26] MEDS: DUONEB 0.5-3 MG/3 ml Neb IH ONE (18:58)
[2023-08-26 19:03] LABS: Absolute Neutrophil Ct (ANC) 11.14 x10^3/uL (1.4-6.9); BASOPHIL % 0.3 % (0.0-0.4); Basophil (Absolute #) 0.04 x10^3/uL (0-0.4); Eosinophil (Absolute #) 0 x10^3/uL (0-0.5); Hematocrit 32.5 % (35-47); Hemoglobin 11.6 g/dL (12.0-16.0); IMMATURE GRAN # 0.04 x10^3u/L (0.00-0.03); IMMATURE GRAN % 0.3 % (0.00-0.4); Lymphocyte (Absolute #) 0.82 x10^3/uL (1.0-4.6); Lymphocytes % 6.7 % (24.0-44.0); Mean Cell Volume 89.3 fL (78-100); Mean Corpuscular Hemoglobin 31.9 pg (26-32); Mean Corpuscular Hgb Concent. 35.7 g/dL (32-36); Mean Platelet Volume 9.6 fL (7.5-11.0); Monocyte (Absolute #) 0.22 x10^3/uL (0.0-1.3); Monocytes % 1.8 % (0.0-12.0); Neutrophil % 90.9 % (36.0-66.0); Platelet Count 299 x10^3/uL (150-450); Red Blood Count 3.64 x10^6/uL (4.1-5.4); Red Cell Distribution Width 11.7 % (11.5-14.0); White Blood Count 12.3 x10^3/uL (4.0-10.5)
[2023-08-26 19:09] LABS: ALBUMIN 4.8 g/dL (3.5-5.0); ANION GAP 17.8 MEQ/L (5-15); BILIRUBIN,TOTAL 0.3 mg/dL (0.2-1.3); Calcium 9.6 mg/dL (8.4-10.2); Creatinine 1 0.59 mg/dL (0.52-1.04); EST GLOMERULAR FILTRATION RATE 117.5 ML/MIN; MAGNESIUM 1.8 mg/dL (1.6-2.3); Potassium 3.8 mmol/L (3.5-5.1)
--- NOTE | 2023-08-26 19:29 | ERPHSYRPT ---
- History of Present Illness Time Seen by Provider: 08/26/23 18:32 Source: patient Exam Limitations: no limitations Patient Subjective Stated Complaint: Pt c/o of tightness/pressure going around her chest, believes it to be more shortness of breath than chest pain Triage Nursing Assessment: Pt brought self to the ER, vitals wnl, rates pain as 5/10, tightness around her ribs when she takes a deep breath, pulses normal, skin n/w/d, gets lightheaded when she is up walking around for a bit, denies N&V, has been sick for about 2 weeks but it got worse in the past 3 days and went to [facility] yesterday and saw [employer]Y W[employer] MECHANIC Emilio Arias and he called her today and advised her to come to the ER since she was not any better Physician History: 38-year-old female presented in the ER with complaints of cough congestion, chest tightness with shortness of breath. Patient reports this has been going on for last 2 weeks and has been taking [id number] medication with no significant relief. She was evaluated at urgent care yesterday and has been using inhaler along with Medrol Dosepak but no significant relief. Patient rep orts feeling shortness of breath with minimal activity and has to rest to catch her breath. Patient reports coughing up yellowish-green initially and now having brown sputum production. No fever or chills reported. No lower extremity swelling. Patient is sent in by urgent care provider for further evaluation to rule out pulmonary embolism. Patient has no history of coronary artery disease or chest pains in the past. Allergies/Adverse Reactions: No Known Drug Allergies Allergy (Verified 08/26/23 18:35) Home Medications: Lacosamide [Vimpat] 100 mg PO BID 08/26/23 [History] Pregabalin [Lyrica] 75 mg PO TID 08/26/23 [History] Trazodone HCl 200 mg PO HS 08/26/23 [History] Hx Tetanus, Diphtheria Vaccination/Date Given: No Hx Influenza Vaccination/Date Given: Yes Hx Pneumococcal Vaccination/Date Given: No Travel Risk - International Travel Have you traveled outside of the country in past 3 weeks: No - Emerging Infectious Disease Are you exhibiting symptoms associated with any current EIDs: Yes Symptoms: Cough: New Onset, Shortness of Breath - Review of Systems Constitutional: Fatigue Eyes: No Symptoms Ears, Nose, & Throat: Sinus Drainage Respiratory: Cough, Dyspnea on Exertion (PAUL) Cardiac: No Symptoms Abdominal/Gastrointestinal: No Symptoms Genitourinary Symptoms: No Symptoms Musculoskeletal: No Symptoms Skin: No Symptoms Neurological: No Symptoms Psychological: No Symptoms Endocrine: No Symptoms Hematologic/Lymphatic: No Symptoms - Past Medical History Pertinent Past Medical History: Yes Neurological History: Seizures ENT History: No Pertinent History Cardiac History: No Pertinent History Respiratory History: No Pertinent History Endocrine Medical History: No Pertinent History Musculoskeletal History: No Pertinent History GI Medical History: Gallbladder Disease History: No Pertinent History Psycho-Social History: Anxiety, Depression, Panic Disorder Female Reproductive Disorders: Breast Cancer, Cervical Cancer Other Medical History: Last seizure was in 11/2019. Pt is taking meds. - Past Surgical History Past Surgical History: Yes Neuro Surgical History: No Pertinent History Cardiac: No Pertinent History Respiratory: No Pertinent History Gastrointestinal: Cholecystectomy Genitourinary: No Pertinent History Musculoskeletal: No Pertinent History Female Surgical History: Tubal Ligation, Lumpectomy, Other Other Surgical History: Lumpectomy of the right breast. Lymph nodes intact. - Female History Hx Now: No (ablasion) - Social History Smoking Status: Never smoker How long have you smoked: 20 Exposure to second hand smoke: No Drug Use: none Patient Lives Alone: Yes - Nursing Vital Signs Nursing Vital Signs: Initial Vital Signs Temperature 98.5 F 08/26/23 18:20 Pulse Rate 75 08/26/23 18:20 Respiratory Rate 25 H 08/26/23 18:20 Blood Pressure 116/74 08/26/23 18:20 O2 Sat by Pulse Oximetry 98 08/26/23 18:20 Pain Scale Pain Intensity 5 - Physical Exam General Appearance: no apparent distress, alert Eye Exam: PERRL/EOMI Ears, Nose, Throat Exam: hearing grossly normal, normal ENT inspection, normal pharynx Neck Exam: normal inspection, non-tender, supple, full range of motion Respiratory Exam: normal breath sounds, lungs clear Cardiovascular/Chest Exam: normal heart sounds, regular rate/rhythm Abdominal/Gastrointestinal Exam: soft, normal bowel sounds, No tenderness Extremity Exam: non-tender Neurologic Exam: alert, oriented x 3, cooperative, job boss II-XII nml as tested Skin Exam: normal color SpO2 Interpretation: normal SpO2: 97 O2 Delivery: Room Air - Course EKG Interpreted by Me: RATE ([id number]), Sinus Rhythm, NORMAL AXIS, NORMAL INTERVALS Ordered Tests: Active Orders 24 hr Category Date Time Status Account Consultant STAT Care 08/26/23 18:47 Active EKG-ER Only STAT Care 08/26/23 18:47 Active IV Insertion STAT Care 08/26/23 18:47 Active CHEST WITH CONTRAST [CT] Stat Exams 08/26/23 18:47 Taken CBC W DIFF Stat Lab 08/26/23 18:25 Completed CMP Stat Lab 08/26/23 18:25 Completed Lactic Acid Stat Lab 08/26/23 18:47 Completed Lactic Acid Stat Lab 08/26/23 21:16 Received MAGNESIUM Stat Lab 08/26/23 18:25 Completed NT PRO BNPII Stat Lab 08/26/23 18:25 Completed TROPONIN Q4H Lab 08/26/23 18:25 Completed TROPONIN Q4H Lab 08/26/23 23:00 Ordered TROPONIN Q4H Lab 08/27/23 03:00 Ordered Respiratory Therapy Assessment DAILY RT 08/26/23 18:56 Active Medication Summary Generic Name Dose Route Start Last Admin Trade Name Freq PRN Reason Stop Dose Admin Sodium Chloride 1,000 mls @ 999 mls/hr 08/26/23 20:35 08/26/23 20:37 Sodium Chloride 0.9% 1000 Ml IV 08/26/23 21:35 999 mls/hr .Q1H1M STA Administration Discontinued Medications Generic Name Dose Route Start Last Admin Trade Name Freq PRN Reason Stop Dose Admin Albuterol/Ipratropium 3 ml 08/26/23 18:47 08/26/23 18:58 Ipratropium/Albuterol Sulfate 3 Ml Ampul.Neb IH 08/26/23 18:48 3 ml STAT ONE Administration Albuterol/Ipratropium Confirm 08/26/23 18:52 Ipratropium/Albuterol Sulfate 3 Ml Ampul.Neb Administered 08/26/23 18:53 Dose 3 ml IH .STK-MED ONE Doxycycline Hyclate 100 mg 08/26/23 21:06 08/26/23 21:11 Doxycycline Hyclate 100 Mg Tablet PO 08/26/23 21:07 100 mg STAT ONE Administration Doxycycline Hyclate Confirm 08/26/23 21:10 Doxycycline Hyclate 100 Mg Tablet Administered 08/26/23 21:11 Dose 100 mg .ROUTE .STK-MED ONE Sodium Chloride Confirm 08/26/23 20:36 Sodium Chloride 0.9% 1000 Ml Administered 08/26/23 20:37 Dose 1,000 mls @ ud .[facility]TE [facility] Lab/Rad Data: Laboratory Result Diagrams 08/26/23 18:25 08/26/23 18:25 Laboratory Results 08/26/23 08/26/23 08/26/23 Range/Units 19:12 18:47 18:25 WBC (4.0-10.5) x10^3/uL RBC (4.1-5.4) x10^6/uL Hgb (12.0-16.0) g/dL Hct (35-47) % MCV (78-100) fL MCH (26-32) pg MCHC (32-36) g/dL RDW (11.5-14.0) % Plt Count (150-450) x10^3/uL MPV (7.5-11.0) fL Gran % (36.0-66.0) % Immature Gran % (Auto) (0.00-0.4) % Nucleat RBC Rel Count (0.00-0.1) % Eos # (Auto) (0-0.5) x10^3/uL Immature Gran # (Auto) (0.00-0.03) x10^3u/L Absolute Lymphs (auto) (1.0-4.6) x10^3/uL Absolute Monos (auto) (0.0-1.3) x10^3/uL Absolute Nucleated RBC (0.00-0.01) x10^3u/L Lymphocytes % (24.0-44.0) % Monocytes % (0.0-12.0) % Eosinophils % (0.00-5.0) % Basophils % (0.0-0.4) % Absolute Granulocytes (1.4-6.9) x10^3/uL Basophils # (0-0.4) x10^3/uL Sodium (135-145) mmol/L Potassium (3.5-5.1) mmol/L Chloride (98-107) mmol/L Carbon Dioxide (22-30) mmol/L Anion Gap (5-15) MEQ/L BUN (7-17) mg/dL Creatinine (0.52-1.04) mg/dL Estimated GFR ML/MIN Glucose (74-106) mg/dL Lactic Acid 2.3 H (0.4-2.0) Calcium (8.4-10.2) mg/dL Magnesium (1.6-2.3) mg/dL Total Bilirubin (0.2-1.3) mg/dL AST (14-36) U/L ALT (0-35) U/L Alkaline Phosphatase (38-126) U/L Troponin I (0.000-0.033) ng/mL NT-Pro-B Natriuret Pep 43.6 (<300) pg/mL Serum Total Protein (6.3-8.2) g/dL Albumin (3.5-5.0) g/dL Influenza Type A Ag NEGATIVE (NEGATIVE) Influenza Type B Ag NEGATIVE (NEGATIVE) RSV (PCR) NEGATIVE (NEGATIVE) SARS-CoV-2 (PCR) NEGATIVE (NEGATIVE) 08/26/23 08/26/23 08/26/23 Range/Units 18:25 18:25 18:25 WBC 12.3 H (4.0-10.5) x10^3/uL RBC 3.64 L (4.1-5.4) x10^6/uL Hgb 11.6 L (12.0-16.0) g/dL Hct 32.5 L (35-47) % MCV 89.3 (78-100) fL MCH 31.9 (26-32) pg MCHC 35.7 (32-36) g/dL RDW 11.7 (11.5-14.0) % Plt Count 299 (150-450) x10^3/uL MPV 9.6 (7.5-11.0) fL Gran % 90.9 H (36.0-66.0) % Immature Gran % (Auto) 0.3 (0.00-0.4) % Nucleat RBC Rel Count 0.0 (0.00-0.1) % Eos # (Auto) 0 (0-0.5) x10^3/uL Immature Gran # (Auto) 0.04 H (0.00-0.03) x10^3u/L Absolute Lymphs (auto) 0.82 L (1.0-4.6) x10^3/uL Absolute Monos (auto) 0.22 (0.0-1.3) x10^3/uL Absolute Nucleated RBC 0.00 (0.00-0.01) x10^3u/L Lymphocytes % 6.7 L (24.0-44.0) % Monocytes % 1.8 (0.0-12.0) % Eosinophils % 0.0 (0.00-5.0) % Basophils % 0.3 (0.0-0.4) % Absolute Granulocytes 11.14 H (1.4-6.9) x10^3/uL Basophils # 0.04 (0-0.4) x10^3/uL Sodium 136 (135-145) mmol/L Potassium 3.8 (3.5-5.1) mmol/L Chloride 105 (98-107) mmol/L Carbon Dioxide 17 L (22-30) mmol/L Anion Gap 17.8 H (5-15) MEQ/L BUN 12 (7-17) mg/dL Creatinine 0.59 (0.52-1.04) mg/dL Estimated GFR 117.5 ML/MIN Glucose 121 H (74-106) mg/dL Lactic Acid (0.4-2.0) Calcium 9.6 (8.4-10.2) mg/dL Magnesium 1.8 (1.6-2.3) mg/dL Total Bilirubin 0.30 (0.2-1.3) mg/dL AST 26 (14-36) U/L ALT 17 (0-35) U/L Alkaline Phosphatase 42 (38-126) U/L Troponin I < 0.012 (0.000-0.033) ng/mL NT-Pro-B Natriuret Pep (<300) pg/mL Serum Total Protein 8.0 (6.3-8.2) g/dL Albumin 4.8 (3.5-5.0) g/dL Influenza Type A Ag (NEGATIVE) Influenza Type B Ag (NEGATIVE) RSV (PCR) (NEGATIVE) SARS-CoV-2 (PCR) (NEGATIVE) - Progress Progress: improved, re-examined Air Movement: good Progress Note: 08/26/23 21:09 38-year-old is evaluated in the ER for worsening cough and difficulty breathing. Patient is given breathing treatment and feeling better on reevaluation. Workup showed white count of 12, fairly unremarkable chemistries except for lactate of 2.3. Has negative troponin. The EKG is normal sinus rhythm with no acute ST elevations. Patient has a CTA which is negative for pulmonary embolism per preliminary report. No other acute findings. I have given her fluids. I believe patient has bronchitis and she is fighting with it for more than 2 weeks, I will give her doxycycline and recommended continue with albuterol inhaler and Medrol Dosepak. Discussed signs symptoms of worsening needing return to ER which she seems understanding. Stable for discharge. Blood Culture(s) Obtained: No Antibiotics given: Yes Counseled pt/family regarding: lab results, diagnosis, need for follow-up, rad results Medical Desision Making - Diagnostic Testing Diagnostic test were ordered, analyzed, and reviewed by me: Yes Radiological Interpretation: Reviewed by me, Teleradiologist Report - Risk of complications The pt has a mod risk of morbidity or mortality based on: Need for prescription drug management - Departure Departure Disposition: Home Clinical Impression: Acute bronchitis Condition: Stable Critical Care Time: No Referrals: DOCTOR,NO FAMILY [NON-STAFF PHY W/O PRIVILEGES] - Follow up with PCP 1 day Instructions: Acute Bronchitis, Adult (DC) Additional Instructions: Continue with inhaler and steroid as recommended. Follow-up with your primary care for reevaluation. Return to ER for worsening cough/difficulty breathing or if develop fever chills etc. Prescriptions: Doxycycline Hyclate 100 mg [Vibramycin 100 MG] 100 mg PO BID #14 tab
[2023-08-26 19:58] LABS: INFLUENZA A NEGATIVE (NEGATIVE); INFLUENZA B NEGATIVE (NEGATIVE); RESPIRATORY SYNCTIAL VIRUS NEGATIVE (NEGATIVE); SARS-CoV-2 Xpert Express NEGATIVE (NEGATIVE)
[2023-08-26] MEDS ORDERED: Sodium Chloride 0.9% 1000 ML 1,000 ML ONE (20:36)
[2023-08-26] MEDS: Sodium Chloride 0.9% 1000 ML 1,000 ML IV STA (20:37)
[2023-08-26 21:02] VITALS: BP 122/73; PULSE 82; RESP 31
[2023-08-26] MEDS ORDERED: Vibramycin 100 MG ONE (21:10)
[2023-08-26] MEDS: Vibramycin 100 MG PO ONE (21:11)
[2023-08-26 21:13] VITALS: O2SAT 97
--- NOTE | 2023-08-27 08:21 | XRAY ---
Indication: Chest pain. Pulmonary embolus. Multiple contiguous axial images obtained through the chest using 80 cc Isovue-370 contrast and PE protocol. Comparison: None Good opacification pulmonary arteries to include the lobar and segmental branches. No pulmonary embolus. Heart not enlarged. Aorta is normal in course and caliber. No pathologic mediastinal/hilar lymphadenopathy. Lungs inflated and clear. Bony thorax intact. Limited upper abdomen demonstrates cholecystectomy clips. Impression: Normal CT chest pulmonary embolus exam.
== END 2023-08-26 21:24 | disposition home or self-care (01) ==
LOC: ED 18:18
DX: J20.9 Acute bronchitis, unspecified (principal); R05.1 Acute cough; R06.02 Shortness of breath; R07.9 Chest pain, unspecified; Z79.899 Other long term (current) drug therapy
CPT/HCPCS: 0241U; 36000; 36415; 71260; 80053; 83605; 83735; 83880; 84484; 85025; 93005; 93041; 94640; 99284; A9270-GY

== ENCOUNTER 2024-03-30 23:09 | Emergency (ER) | payer BC ==
[2024-03-30] MEDS ORDERED: Zofran 4 MG/2 ML VIAL ONE (23:21)
[2024-03-30] MEDS ORDERED: VERSED 5 MG/5 ML ONE (23:21)
[2024-03-30] MEDS: VERSED 5 MG/5 ML IV ONE (23:25)
[2024-03-30] MEDS: Zofran 4 MG/2 ML VIAL IV ONE (23:25)
[2024-03-30 23:36] LABS: Hematocrit 35.7 % (34.1-44.9); Hemoglobin 12.1 g/dL (11.2-15.7); Mean Corpuscular Hemoglobin 31.2 pg (25.6-32.2); Mean Corpuscular Hgb Concent. 33.9 g/dL (32.2-35.5); Mean Platelet Volume 9.2 fL (9.4-12.3); Platelet Count 306 x10^3/uL (182-369); Red Blood Count 3.88 x10^6/uL (3.93-5.22); Red Cell Distribution Width 12.1 % (11.7-14.4); White Blood Count 8.3 x10^3/uL (3.98-10.04)
[2024-03-30 23:48] VITALS: TEMP 98.1
[2024-03-30] MEDS ORDERED: Sodium Chloride 0.9% 1000 ML 1,000 ML ONE (23:48)
[2024-03-30 23:50] LABS: ALBUMIN 4.9 g/dL (3.5-5.0); ANION GAP 18.3 MEQ/L (5-15); BILIRUBIN,TOTAL 0.2 mg/dL (0.2-1.3); Calcium 9.2 mg/dL (8.4-10.2); Creatinine 1 0.69 mg/dL (0.52-1.04); EST GLOMERULAR FILTRATION RATE 112.4 ML/MIN; Potassium 3.7 mmol/L (3.5-5.1); Total Protein 8.3 g/dL (6.3-8.2)
[2024-03-30] MEDS: Sodium Chloride 0.9% 1000 ML 1,000 ML IV SCH (23:50)
[2024-03-31] MEDS: Versed 2 MG/2 ML Injection IV ONE (00:04)
--- NOTE | 2024-03-31 00:04 | ERPHSYRPT ---
- History of Present Illness Time Seen by Provider: 03/30/24 23:18 Source: patient, EMS Exam Limitations: clinical condition Patient Subjective Stated Complaint: c/o seizures Triage Nursing Assessment: patient brought into ED with c/o seizures. patient was actively having a seizure on stretcher when patient arrived seizure lasted 1 minute. patient was at a bar per EMS and had her first seizure at 2240, it lasted 1 minute, and she came out of it. Patient had 4 seizures in the ambulance and 3 seizures since arrival. Patient is not responding to voice or pain, patient was responding to doctor for a short period of time, but has since had a seizure and is no longer responding. EMS stated that the patient has been drinking all day for her birthday. Patient has a history of seizures. Patient was on 92% room air, has been put on 2L via nasal cannula since arrival. skin w/n/d, pulses normal. Physician History: 39 years old female with history of seizure disorder, substance abuse in the past, clean for the last few years, alcohol abuse, fibromyalgia was drinking at the bar for the last few hours and had a seizure like activity. Patient is brought in the ER by EMS and has 2-3 seizures episode while in route and 1 on presentation in the ER. Patient immediately came out of the seizure and was responding to verbal commands. She denies using any drugs. Denies any chest or abdominal pain. Later on patient had another couple of seizures for few seconds to a minute and was given IV Versed. Allergies/Adverse Reactions: No Known Drug Allergies Allergy (Verified 08/26/23 18:35) Home Medications: Lacosamide [Vimpat] 100 mg PO BID 08/26/23 [History] Pregabalin [Lyrica] 75 mg PO TID 08/26/23 [History] Trazodone HCl 200 mg PO HS 08/26/23 [History] Hx Tetanus, Diphtheria Vaccination/Date Given: (unknown) Hx Influenza Vaccination/Date Given: (unknown) Hx Pneumococcal Vaccination/Date Given: (unknown) Immunizations Up to Date: (unknown) Travel Risk - International Travel Have you traveled outside of the country in past 3 weeks: No - Emerging Infectious Disease Are you exhibiting symptoms associated with any current EIDs: No Symptoms: Cough: New Onset, Shortness of Breath - Review of Systems All Other Systems: Unable due to condition - Past Medical History Pertinent Past Medical History: Yes Neurological History: Seizures ENT History: No Pertinent History Cardiac History: No Pertinent History Respiratory History: No Pertinent History Endocrine Medical History: No Pertinent History Musculoskeletal History: No Pertinent History GI Medical History: Gallbladder Disease History: No Pertinent History Psycho-Social History: Anxiety, Depression, Panic Disorder Female Reproductive Disorders: Breast Cancer, Cervical Cancer Other Medical History: Last seizure was in 11/2019. Pt is taking meds. - Past Surgical History Past Surgical History: Yes Neuro Surgical History: No Pertinent History Cardiac: No Pertinent History Respiratory: No Pertinent History Gastrointestinal: Cholecystectomy Genitourinary: No Pertinent History Musculoskeletal: No Pertinent History Female Surgical History: Tubal Ligation, Lumpectomy, Other Other Surgical History: Lumpectomy of the right breast. Lymph nodes intact. - Female History Hx Last Menstrual Period: unknown Hx Now: (unknown) - Social History Smoking Status: Never smoker How long have you smoked: 20 Exposure to second hand smoke: No Drug Use: none Patient Lives Alone: Yes - Social Determinants of Health Will the patient participate in the screening: Declined to provide - Nursing Vital Signs Nursing Vital Signs: Initial Vital Signs Pulse Rate 95 H 03/30/24 23:06 Respiratory Rate 21 03/30/24 23:06 Blood Pressure 127/77 03/30/24 23:06 O2 Sat by Pulse Oximetry 97 03/30/24 23:06 - [place] Coma Scale Best Eye Response (Francisco): (4) open spontaneously Best Verbal Response ([place]): (5) oriented Best Motor Response ([place]): (6) obeys commands [place] Total: 15 - Physical Exam Eye Exam: bilateral eye: normal inspection, PERRL, EOMI Ears, Nose, Throat Exam: normal ENT inspection Neck Exam: normal inspection, non-tender, supple, full range of motion Respiratory: normal breath sounds, lungs clear Cardiovascular: regular rate/rhythm, normal heart sounds Gastrointestinal: soft, normal bowel sounds, No tenderness Back Exam: normal inspection, normal range of motion Extremity Exam: normal inspection, normal range of motion 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, 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 Exam: normal hearing, normal speech, PERRL Motor/Sensory: no motor deficit, no sensory deficit DTR: bicep (R): 2+, bicep (L): 2+, knee (R): 2+, knee (L): 2+ Skin Exam: normal color SpO2 Interpretation: normal SpO2: 98 O2 Delivery: Room Air Ordered Tests: Active Orders 24 hr Category Date Time Status Gonzalez [Catheter-Irvine Gonzalez] STAT Care 03/30/24 23:26 Active CHEST 1 VIEW (PORTABLE) Stat Exams 03/30/24 23:39 Taken HEAD WITHOUT CONTRAST [CT] Stat Exams 03/31/24 00:03 Ordered CBC Stat Lab 03/30/24 23:25 Completed CMP Stat Lab 03/30/24 23:25 Completed CULTURE,URINE Stat Lab 03/30/24 23:58 Received ETHYL ALCOHOL Stat Lab 03/30/24 23:25 Completed Lactic Acid Stat Lab 03/30/24 23:35 Completed MAGNESIUM Stat Lab 03/30/24 23:25 Completed UA W/RFX UR CULTURE Urgent Lab 03/30/24 23:57 Completed Urine Triage Profile Stat Lab 03/31/24 00:03 Completed Medication Summary Generic Name Dose Route Start Last Admin Trade Name Freq PRN Reason Stop Dose Admin Sodium Chloride 1,000 mls @ 999 mls/hr 03/30/24 23:15 03/30/24 23:50 Sodium Chloride 0.9% 1000 Ml IV 04/29/24 23:14 999 mls/hr .Q1H1M ROB Administration Ondansetron HCl 4 mg 03/31/24 23:20 03/30/24 23:25 Ondansetron Hcl 4 Mg/2 Ml Vial IV 03/31/24 23:21 4 mg STAT ONE Administration Discontinued Medications Generic Name Dose Route Start Last Admin Trade Name Freq PRN Reason Stop Dose Admin Levetiracetam 1,000 mg/ 110 mls @ 220 mls/hr 03/30/24 23:58 03/31/24 00:08 Dextrose IV 03/31/24 00:27 220 mls/hr STAT ONE Administration Dextrose Confirm 03/31/24 00:07 D5w 100ml Mini Bag 100 Ml Administered 03/31/24 00:08 Dose 100 mls @ ud IV .STK-MED ONE Levetiracetam Confirm 03/31/24 00:07 Levetiracetam 500 Mg/5 Ml Vial Administered 03/31/24 00:08 Dose 1,000 mg .ROUTE .STK-MED ONE Lorazepam 1 mg 03/31/24 00:41 03/31/24 00:48 Lorazepam 2 Mg/1 Ml 2 Mg Vial IV 03/31/24 00:42 1 mg STAT ONE Administration Midazolam HCl 2 mg 03/30/24 23:21 03/31/24 00:04 Midazolam Hcl 2 Mg/2 Ml Vial IV 03/30/24 23:22 Not Given 1XONLY ONE Midazolam HCl Confirm 03/30/24 23:21 Midazolam Hcl 5 Mg/5 Ml Vial Administered 03/30/24 23:22 Dose 5 mg .ROUTE .STK-MED ONE Midazolam HCl 2 mg 03/30/24 23:20 03/30/24 23:25 Midazolam Hcl 5 Mg/5 Ml Vial IV 03/30/24 23:21 2 mg STAT ONE Administration Ondansetron HCl Confirm 03/30/24 23:21 Ondansetron Hcl 4 Mg/2 Ml Vial Administered 03/30/24 23:22 Dose 4 mg .ROUTE .STK-MED ONE Lab/Rad Data: Laboratory Result Diagrams 03/30/24 23:25 03/30/24 23:25 Laboratory Results 03/31/24 03/31/24 03/30/24 Range/Units 00:03 00:03 23:35 WBC (3.98-10.04) x10^3/uL RBC (3.93-5.22) x10^6/uL Hgb (11.2-15.7) g/dL Hct (34.1-44.9) % MCV (79.4-94.8) fL MCH (25.6-32.2) pg MCHC (32.2-35.5) g/dL RDW (11.7-14.4) % Plt Count (182-369) x10^3/uL MPV (9.4-12.3) fL Sodium (135-145) mmol/L Potassium (3.5-5.1) mmol/L Chloride (98-107) mmol/L Carbon Dioxide (22-30) mmol/L Anion Gap (5-15) MEQ/L BUN (7-17) mg/dL Creatinine (0.52-1.04) mg/dL Estimated GFR ML/MIN Glucose (74-106) mg/dL Lactic Acid 4.9 H (0.4-2.0) Calcium (8.4-10.2) mg/dL Magnesium (1.6-2.3) mg/dL Total Bilirubin (0.2-1.3) mg/dL AST (14-36) U/L ALT (0-35) U/L Alkaline Phosphatase (38-126) U/L Serum Total Protein (6.3-8.2) g/dL Albumin (3.5-5.0) g/dL Urine Color Yellow (Yellow) Urine Appearance Clear (Clear) Urine pH 5.0 (4.6-8.0) Ur Specific Luther <=1.005 (1.005-1.030) Urine Protein Negative (Negative) Urine Glucose (UA) Negative (Negative) mg/dL Urine Ketones Negative (Negative) Urine Blood Negative (Negative) Urine Nitrite Negative (Negative) Urine Bilirubin Negative (Negative) Urine Urobilinogen 0.2 (0.2) mg/dL Ur Leukocyte Esterase Negative (Negative) U Hyaline Cast (Auto) NONE SEEN (0-2) /LPF Urine Microscopic RBC 0-2 (0-5) /HPF Urine Microscopic WBC 0-2 (0-5) /HPF Ur Epithelial Cells None Seen (None Seen) /HPF Urine Bacteria None Seen (None Seen) /HPF Urine Culture Reflexed ORDERED SEPARATELY (NO) Urine Opiates Level NEGATIVE (NEGATIVE) Ur Methadone NEGATIVE (NEGATIVE) Urine Barbiturates NEGATIVE (NEGATIVE) Ur Phencyclidine (PCP) NEGATIVE (NEGATIVE) Urine Amphetamine NEGATIVE (NEGATIVE) U Benzodiazepine Level NEGATIVE (NEGATIVE) Urine Cocaine NEGATIVE (NEGATIVE) Urine Marijuana (THC) NEGATIVE (NEGATIVE) Ethyl Alcohol (0-10) mg/dL 03/30/24 03/30/24 03/30/24 Range/Units 23:25 23:25 23:25 WBC 8.3 (3.98-10.04) x10^3/uL RBC 3.88 L (3.93-5.22) x10^6/uL Hgb 12.1 (11.2-15.7) g/dL Hct 35.7 (34.1-44.9) % MCV 92.0 (79.4-94.8) fL MCH 31.2 (25.6-32.2) pg MCHC 33.9 (32.2-35.5) g/dL RDW 12.1 (11.7-14.4) % Plt Count 306 (182-369) x10^3/uL MPV 9.2 L (9.4-12.3) fL Sodium 144 (135-145) mmol/L Potassium 3.7 (3.5-5.1) mmol/L Chloride 107 (98-107) mmol/L Carbon Dioxide 22 (22-30) mmol/L Anion Gap 18.3 H (5-15) MEQ/L BUN 7 (7-17) mg/dL Creatinine 0.69 (0.52-1.04) mg/dL Estimated GFR 112.4 ML/MIN Glucose 84 (74-106) mg/dL Lactic Acid (0.4-2.0) Calcium 9.2 (8.4-10.2) mg/dL Magnesium 2.0 (1.6-2.3) mg/dL Total Bilirubin 0.20 (0.2-1.3) mg/dL AST 39 H (14-36) U/L ALT 27 (0-35) U/L Alkaline Phosphatase 43 (38-126) U/L Serum Total Protein 8.3 H (6.3-8.2) g/dL Albumin 4.9 (3.5-5.0) g/dL Urine Color (Yellow) Urine Appearance (Clear) Urine pH (4.6-8.0) Ur Specific Luther (1.005-1.030) Urine Protein (Negative) Urine Glucose (UA) (Negative) mg/dL Urine Ketones (Negative) Urine Blood (Negative) Urine Nitrite (Negative) Urine Bilirubin (Negative) Urine Urobilinogen (0.2) mg/dL Ur Leukocyte Esterase (Negative) U Hyaline Cast (Auto) (0-2) /LPF Urine Microscopic RBC (0-5) /HPF Urine Microscopic WBC (0-5) /HPF Ur Epithelial Cells (None Seen) /HPF Urine Bacteria (None Seen) /HPF Urine Culture Reflexed (NO) Urine Opiates Level (NEGATIVE) Ur Methadone (NEGATIVE) Urine Barbiturates (NEGATIVE) Ur Phencyclidine (PCP) (NEGATIVE) Urine Amphetamine (NEGATIVE) U Benzodiazepine Level (NEGATIVE) Urine Cocaine (NEGATIVE) Urine Marijuana (THC) (NEGATIVE) Ethyl Alcohol 293 H (0-10) mg/dL - Departure Clinical Impression: Recurrent seizures, Alcohol intoxication Condition: Stable Critical Care Time: No Referrals: TYLOR LEDBETTER NP [Primary Care Provider] - Follow up/PCP as directed
[2024-03-31] MEDS ORDERED: D5w 100ML Mini Bag 100 ML 100 ML IV ONE (00:07)
[2024-03-31] MEDS ORDERED: Keppra 500 MG/5 ML ONE (00:07)
[2024-03-31] MEDS: Keppra 500 MG/5 ML*** 1,000 MG in D5w 100ML Mini Bag 100 ML 100 ML IV ONE (00:08)
[2024-03-31 00:21] LABS: Appearance Clear (Clear); Bacteria None Seen /HPF (None Seen); Bilirubin Negative (Negative); Blood Negative (Negative); Epithelial Cells None Seen /HPF (None Seen); Glucose, Urine Negative (Negative); Hyaline Casts NONE SEEN /LPF (0-2); Ketones Negative (Negative); Leukocyte Esterase Negative (Negative); Nitrite Negative (Negative); Protein,Urine Dip Negative (Negative); RBC 0-2 /HPF (0-5); Specific Gravity <=1.005 (1.005-1.030); Urobilinogen 0.2 mg/dL (0.2); WBC 0-2 /HPF (0-5)
[2024-03-31 00:28] LABS: Amphetamine,Urine NEGATIVE (NEGATIVE); Barbiturate,Urine NEGATIVE (NEGATIVE); Benzodiazepine,Urine NEGATIVE (NEGATIVE); Cocaine,Urine NEGATIVE (NEGATIVE); Methadone,Urine NEGATIVE (NEGATIVE); Opiate,Urine NEGATIVE (NEGATIVE); PCP,Urine NEGATIVE (NEGATIVE)
[2024-03-31 00:34] LABS: THC,Urine NEGATIVE (NEGATIVE)
[2024-03-31] MEDS ORDERED: Ativan 2 MG/1 ML VIAL ONE (00:42)
[2024-03-31] MEDS: Ativan 2 MG/1 ML VIAL IV ONE (00:48)
[2024-03-31] MEDS ORDERED: Sodium Chloride 0.9% 1000 ML 1,000 ML ONE (01:59)
[2024-03-31 04:29] VITALS: RESP 15
[2024-03-31 04:54] VITALS: BP 92/56; PULSE 81; O2SAT 98
--- NOTE | 2024-03-31 09:41 | XRAY ---
Indication: Seizure. Comparison: August 25, 2023 Portable chest again demonstrates normal heart, lungs, and bony thorax.
--- NOTE | 2024-03-31 12:45 | XRAY ---
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 CT scan was performed according to ALARA (as low as reasonable achievable). FINDINGS: The brain shows normal morphology, attenuation, and volume for age. No evidence of space occupying lesion, hemorrhage, edema, mass effect, midline shift, extra axial collection, or hydrocephalus is noted. Ventricles, sulci, and basal cisterns are symmetric and normal in size and configuration. The frost-white matter differentiation is preserved. Visualized paranasal sinuses and mastoid air cells are well aerated. Orbital contents are within normal limits. Bony structures are intact. IMPRESSION: 1. No evidence of acute intracranial abnormality is demonstrated No other new interval abnormality since prior study. Electronically Signed by: Slava Garvey MD. (03/31/2024 01:46:07 EST)
== END 2024-03-31 05:01 | disposition short-term general hospital (02) ==
LOC: ED 23:09
DX: R56.9 Unspecified convulsions (principal); F10.929 Alcohol use, unspecified with intoxication, unspecified
CPT/HCPCS: 36415; 51702; 70450; 71045; 80053; 80307; 81001; 82077; 83605; 83735; 85027; 87086; 96360; 96374; 96375; 99285; J1953; J2060; J2250; J2405

== ENCOUNTER 2025-02-08 00:02 | Observation (INO) | payer BC ==
[2025-02-08] MEDS ORDERED: FOSPHENYTOIN SODIUM IV STA (00:30)
[2025-02-08] MEDS ORDERED: FOSPHENYTOIN SODIUM ONE (00:44)
[2025-02-08 00:48] LABS: BASOPHIL % 0.6 % (0.1-1.2); Basophil (Absolute #) 0.04 x10^3/uL (0.01-0.08); Eosinophil (Absolute #) 0.11 x10^3/uL (0.04-0.36); Hematocrit 34.3 % (34.1-44.9); Hemoglobin 11.7 g/dL (11.2-15.7); IMMATURE GRAN # 0.02 x10^3u/L (0.001-0.031); IMMATURE GRAN % 0.3 % (0.001-0.429); Lymphocyte (Absolute #) 1.63 x10^3/uL (1.18-3.74); Mean Corpuscular Hemoglobin 32.2 pg (25.6-32.2); Mean Corpuscular Hgb Concent. 34.1 g/dL (32.2-35.5); Monocyte (Absolute #) 0.42 x10^3/uL (0.24-0.86); NUCLEATED RBC # 0.00 x10^3u/L (0.00-0.012); NUCLEATED RBC % 0.0 % (0.00-0.2); Platelet Count 247 x10^3/uL (182-369); Red Blood Count 3.63 x10^6/uL (3.93-5.22); White Blood Count 7.0 x10^3/uL (3.98-10.04)
[2025-02-08] MEDS: SODIUM CHLORIDE 0.9% IV ONE (00:55)
[2025-02-08] MEDS: CEREBYX IV ONE (00:55)
[2025-02-08 01:03] LABS: Calcium 8.7 mg/dL (8.4-10.2); Carbon Dioxide 23 mmol/L (22-30); Creatinine 1 0.65 mg/dL (0.52-1.04); EST GLOMERULAR FILTRATION RATE 114.1 ML/MIN; ETHYL ALCOHOL 175 mg/dL (0-10); Glucose 90 mg/dL (74-106); Potassium 3.6 mmol/L (3.5-5.1); SGOT/AST 29 U/L (14-36); SGPT/ALT 19 U/L (0-35); Total Protein 7.7 g/dL (6.3-8.2)
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
--- NOTE | 2025-02-08 01:55 | XRAY ---
CLINICAL HISTORY: Altered mental status COMPARISON: 01/27/2020 19:50:15 JDE DEVELOPER TECHNIQUE: Computed tomography of the cervical spine was performed without intravenous contrast. Contiguous axial images were obtained from the skull base to T2, with sagittal and coronal reformatted images reconstructed from the axial data. The CT scan was performed according to ALARA (as low as reasonably achievable). FINDINGS: There is loss of cervical lordosis, suggesting the possibility of muscle spasm or positional change. Degenerative changes involving the cervical spine are present in the form of multilevel marginal osteophytes, disc space reduction, and facet arthrosis. The cervical vertebral bodies are normal in height and alignment, with no evidence of fracture or subluxation. The lateral masses of C1 are symmetrical, and the dens is intact. The prevertebral soft tissues are not widened. The remaining suprahyoid and infrahyoid soft tissues in the neck are unremarkable. Posterior uncovertebral arthrosis is noted at the C5-C6 and C6-C7 levels, which indents the ventral thecal sac and causes bilateral neuroforaminal narrowing. The thyroid gland appears unremarkable. IMPRESSION: 1. No acute fracture or subluxation in the cervical spine. 2. Cervical spondylosis ? stable. No other new interval abnormality since the prior study. Electronically Signed by: Slava Garvey MD. (02/08/2025 01:54:41 EDT)
--- NOTE | 2025-02-08 01:55 | XRAY ---
CLINICAL HISTORY: Altered mental status COMPARISON: 03/30/2024 23:43:02 CNC SERVICE TECHNICIAN TECHNIQUE: Multiple axial images were obtained from the skull base to the vertex without contrast. The CT scan was performed according to ALARA (as low as reasonably achievable). FINDINGS: The brain demonstrates normal morphology, attenuation, and volume for age. There is no evidence of space-occupying lesion, hemorrhage, edema, mass effect, midline shift, extra-axial collection, or hydrocephalus. The ventricles, sulci, and basal cisterns are symmetric and normal in size and configuration. Amador-white matter differentiation is preserved. The visualized paranasal sinuses and mastoid air cells are well aerated. The orbital contents are within normal limits. The bony structures are intact. IMPRESSION: 1. No evidence of acute intracranial abnormality is demonstrated. No other new interval abnormality since prior study. Electronically Signed by: Slava Garvey MD. (02/08/2025 01:54:23 EDT)
[2025-02-08] MEDS: Zofran 4 MG/2 ML VIAL IV PRN (06:28)
[2025-02-08] MEDS ORDERED: MEDICATION INTERVENTION MC SCH ×2 (07:00→07:15)
[2025-02-08 07:57] VITALS: O2SAT 98
--- NOTE | 2025-02-08 08:02 | PCM.HP ---
History of Present Illness - Chief Complaint Chief Complaint: Status epilepticus, lactic acidosis, alcohol intoxication Date: 02/08/25 History of Present Illness: is a 39-year-old female with a history of seizures, anxiety, depression, panic disorder, breast cancer, and cervical cancer who presented to the ED via EMS and law enforcement on 02/07/25 for evaluation of recurrent seizures. EMS reported that she was actively seizing upon their arrival and received a total of 10 mg of midazolam (5 mg intranasally and 5 mg intramuscularly) with continued seizure activity en route. On arrival to the ED, the patient was unconscious but breathing spontaneously and protecting her airway. She experienced at least two additional seizures in the ED and was treated with a loading dose of fosphenytoin (20 mg/kg), which successfully controlled her seizures. CT scans of the head and cervical spine were negative for acute findings. Today, the patient is awake, alert, and sitting up in bed. She reports that she has not taken her seizure medication for the past three days after running out, though she has an active prescription verified by case management and plans to pick it up today. Her alcohol level on admission was 170 mg/dL, which decreased to less than 10 on repeat testing. She admits to drinking alcohol two times per week, typically consuming 612 beers per occasion, and also reports having two shots the night prior to her seizures, which she believes contributed to the event in combination with missed medications. Initial labs showed an anion gap of 15.4 and elevated lactic acid of 4.8. LA improved at 1.9 after IV fluid administration. Urine drug screen and neurology consult are pending. The patient denies any injuries from the seizure and has no current complaints. She will continue IV fluids, and if cleared by neurology, discharge is anticipated later today or tomorrow. She refuses help for alcohol addiction, and does not want rehab OP. - Review of Systems Constitutional: Malaise, No Fever, No Chills Eyes: No Symptoms Ears, Nose, & Throat: No Symptoms Respiratory: No Cough, No Short Of Breath Cardiac: No Chest Pain, No Edema, No Syncope Abdominal/Gastrointestinal: No Abdominal Pain, No Nausea, No Vomiting, No Diarrhea Genitourinary Symptoms: No Dysuria Musculoskeletal: No Back Pain, No Neck Pain Skin: No Rash Neurological: No Dizziness, No Focal Weakness, No Sensory Changes Psychological: No Symptoms Endocrine: No Symptoms Hematologic/Lymphatic: No Symptoms Immunological/Allergic: No Symptoms Medications & Allergies Home Medications: Home Medication List Lacosamide [Vimpat] 150 mg PO BID 08/26/23 [History Confirmed 02/08/25] Pregabalin [Lyrica] 200 mg PO TID 08/26/23 [History Confirmed 02/08/25] Trazodone HCl 300 mg PO HS 08/26/23 [History Confirmed 02/08/25] Atomoxetine HCl 40 mg PO BID 02/08/25 [History Confirmed 02/08/25] Duloxetine HCl 60 mg PO BID 02/08/25 [History Confirmed 02/08/25] Allergies/Adverse Reactions: Allergies Allergy/AdvReac Type Severity Reaction Status Date / Time No Known Drug Allergies Allergy Verified 11/02/24 23:36 - Past Medical History Past Medical History: Yes Neurological History: Seizures ENT History: No Pertinent History Cardiac History: No Pertinent History Respiratory History: No Pertinent History Endocrine Medical History: No Pertinent History Musculoskelatal History: No Pertinent History GI Medical History: Gallbladder Disease History: No Pertinent History Pyscho-Social History: Anxiety, Depression, Panic Disorder Reproductive Disorders: Breast Cancer, Cervical Cancer Comment: Left breast CA, ADHD, osteomyelitis to left knee - Female History Hx Last Menstrual Period: partial hysterectomy Are you now?: No - Past Surgical History Past Surgical History: Yes Neuro Surgical History: No Pertinent History Cardiac History: No Pertinent History Respiratory Surgery: No Pertinent History GI Surgical History: Cholecystectomy Genitourinary Surgical Hx: No Pertinent History Musculskeletal Surgical Hx: No Pertinent History Female Surgical History: Hysterectomy, Tubal Ligation, Lumpectomy, Other Other Surgical History: Lumpectomy of the right breast. Lymph nodes intact. Partial Hysterectomy related to abnormal cervical cells - Social History Smoking Status: Current every day smoker How long have you smoked: 20 Exposure to second hand smoke: No Alcohol: Occasionally Drug Use: none - Social Determinants of Health Will the patient participate in the screening: Declined to provide Do you worry about a steady place to live?: No In the past 12 months,have you had to go without utilities?: No Have you or anyone in your house had to go without enough: No Transportation Issues: No Has anyone in your support network made you feel unsafe?: No - Physical Exam Vital Signs: Vital Signs - 24 hr Temp Pulse Resp BP BP Pulse Ox 02/08/25 07:56 97.7 F 89 20 98/55 98 02/08/25 05:20 96.8 F 66 20 105/69 100 02/08/25 05:15 96.8 F 66 20 105/69 100 02/08/25 04:57 96 02/08/25 04:31 76 17 106/71 100 02/08/25 04:00 99 H 24 112/65 98 02/08/25 03:30 84 21 106/71 95 02/08/25 03:00 78 16 120/77 100 02/08/25 02:30 80 18 97/65 99 02/08/25 02:04 90 18 93/68 95 02/08/25 02:00 86 20 86/62 95 02/08/25 01:37 93 H 15 119/46 95 02/08/25 01:36 90 18 99 02/08/25 01:35 86 5 L 100 02/08/25 01:00 93 H 18 124/68 95 02/08/25 00:33 96 02/08/25 00:05 92 H 24 115/79 97 General Appearance: no apparent distress, alert Neurologic Exam: alert, oriented x 3, cooperative, 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 tested, normal mood/affect, nml cerebellar function, nml station & gait, sensation nml, No motor deficits Eye Exam: PERRL/EOMI, eyes nml inspection Ears, Nose, Throat Exam: normal ENT inspection, TMs normal, pharynx normal, moist mucous membranes Neck Exam: normal inspection, non-tender, supple, full range of motion Respiratory Exam: normal breath sounds, lungs clear, No respiratory distress Cardiovascular Exam: regular rate/rhythm, normal heart sounds, normal peripheral pulses Gastrointestinal/Abdomen Exam: soft, normal bowel sounds, No tenderness, No mass Back Exam: normal inspection, normal range of motion, No CVA tenderness, No vertebral tenderness Extremity Exam: normal inspection, normal range of motion, pelvis stable Skin Exam: normal color, warm, dry, No rash Lymphatic Exam: No adenopathy Results - Labs Lab/Micro Results: Lab Results-Last 24 Hours 02/08/25 02/08/25 02/08/25 Range/Units 00:32 00:40 00:40 WBC 7.0 (3.98-10.04) x10^3/uL RBC 3.63 L (3.93-5.22) x10^6/uL Hgb 11.7 (11.2-15.7) g/dL Hct 34.3 (34.1-44.9) % MCV 94.5 (79.4-94.8) fL MCH 32.2 (25.6-32.2) pg MCHC 34.1 (32.2-35.5) g/dL RDW 11.7 (11.7-14.4) % Plt Count 247 (182-369) x10^3/uL MPV 9.5 (9.4-12.3) fL Gran % 68.2 (34.0-71.1) % Immature Gran % (Auto) 0.3 (0.001-0.429) % Nucleat RBC Rel Count 0.0 (0.00-0.2) % Eos # (Auto) 0.11 (0.04-0.36) x10^3/uL Immature Gran # (Auto) 0.02 (0.001-0.031) x10^3u/L Absolute Lymphs (auto) 1.63 (1.18-3.74) x10^3/uL Absolute Monos (auto) 0.42 (0.24-0.86) x10^3/uL Absolute Nucleated RBC 0.00 (0.00-0.012) x10^3u/L Lymphocytes % 23.3 (19.3-51.7) % Monocytes % 6.0 (4.7-12.5) % Eosinophils % 1.6 (0.7-5.8) % Basophils % 0.6 (0.1-1.2) % Absolute Granulocytes 4.78 (1.56-6.13) x10^3/uL Basophils # 0.04 (0.01-0.08) x10^3/uL Sodium (135-145) mmol/L Potassium (3.5-5.1) mmol/L Chloride (98-107) mmol/L Carbon Dioxide (22-30) mmol/L Anion Gap (5-15) MEQ/L BUN (7-17) mg/dL Creatinine (0.52-1.04) mg/dL Estimated GFR ML/MIN Glucose (74-106) mg/dL POC Glucometer 87 (74 to 106) mg/dL Lactic Acid 4.8 H (0.4-2.0) Calcium (8.4-10.2) mg/dL Magnesium (1.6-2.3) mg/dL Total Bilirubin (0.2-1.3) mg/dL AST (14-36) U/L ALT (0-35) U/L Alkaline Phosphatase (38-126) U/L Troponin I (0.000-0.033) ng/mL Serum Total Protein (6.3-8.2) g/dL Albumin (3.5-5.0) g/dL Salicylates (2-20) mg/dL Acetaminophen (10-30) ug/ml Ethyl Alcohol (0-10) mg/dL 02/08/25 02/08/25 02/08/25 Range/Units 00:40 00:40 00:40 WBC (3.98-10.04) x10^3/uL RBC (3.93-5.22) x10^6/uL Hgb (11.2-15.7) g/dL Hct (34.1-44.9) % MCV (79.4-94.8) fL MCH (25.6-32.2) pg MCHC (32.2-35.5) g/dL RDW (11.7-14.4) % Plt Count (182-369) x10^3/uL MPV (9.4-12.3) fL Gran % (34.0-71.1) % Immature Gran % (Auto) (0.001-0.429) % Nucleat RBC Rel Count (0.00-0.2) % Eos # (Auto) (0.04-0.36) x10^3/uL Immature Gran # (Auto) (0.001-0.031) x10^3u/L Absolute Lymphs (auto) (1.18-3.74) x10^3/uL Absolute Monos (auto) (0.24-0.86) x10^3/uL Absolute Nucleated RBC (0.00-0.012) x10^3u/L Lymphocytes % (19.3-51.7) % Monocytes % (4.7-12.5) % Eosinophils % (0.7-5.8) % Basophils % (0.1-1.2) % Absolute Granulocytes (1.56-6.13) x10^3/uL Basophils # (0.01-0.08) x10^3/uL Sodium 144 (135-145) mmol/L Potassium 3.6 (3.5-5.1) mmol/L Chloride 109 H (98-107) mmol/L Carbon Dioxide 23 (22-30) mmol/L Anion Gap 15.4 H (5-15) MEQ/L BUN 6 L (7-17) mg/dL Creatinine 0.65 (0.52-1.04) mg/dL Estimated GFR 114.1 ML/MIN Glucose 90 (74-106) mg/dL POC Glucometer (74 to 106) mg/dL Lactic Acid (0.4-2.0) Calcium 8.7 (8.4-10.2) mg/dL Magnesium 2.0 (1.6-2.3) mg/dL Total Bilirubin < 0.10 L (0.2-1.3) mg/dL AST 29 (14-36) U/L ALT 19 (0-35) U/L Alkaline Phosphatase 46 (38-126) U/L Troponin I < 0.012 (0.000-0.033) ng/mL Serum Total Protein 7.7 (6.3-8.2) g/dL Albumin 4.5 (3.5-5.0) g/dL Salicylates < 1.0 L (2-20) mg/dL Acetaminophen < 10 L (10-30) ug/ml Ethyl Alcohol 175 H (0-10) mg/dL 02/08/25 02/08/25 Range/Units 02:46 04:30 WBC (3.98-10.04) x10^3/uL RBC (3.93-5.22) x10^6/uL Hgb (11.2-15.7) g/dL Hct (34.1-44.9) % MCV (79.4-94.8) fL MCH (25.6-32.2) pg MCHC (32.2-35.5) g/dL RDW (11.7-14.4) % Plt Count (182-369) x10^3/uL MPV (9.4-12.3) fL Gran % (34.0-71.1) % Immature Gran % (Auto) (0.001-0.429) % Nucleat RBC Rel Count (0.00-0.2) % Eos # (Auto) (0.04-0.36) x10^3/uL Immature Gran # (Auto) (0.001-0.031) x10^3u/L Absolute Lymphs (auto) (1.18-3.74) x10^3/uL Absolute Monos (auto) (0.24-0.86) x10^3/uL Absolute Nucleated RBC (0.00-0.012) x10^3u/L Lymphocytes % (19.3-51.7) % Monocytes % (4.7-12.5) % Eosinophils % (0.7-5.8) % Basophils % (0.1-1.2) % Absolute Granulocytes (1.56-6.13) x10^3/uL Basophils # (0.01-0.08) x10^3/uL Sodium (135-145) mmol/L Potassium (3.5-5.1) mmol/L Chloride (98-107) mmol/L Carbon Dioxide (22-30) mmol/L Anion Gap (5-15) MEQ/L BUN (7-17) mg/dL Creatinine (0.52-1.04) mg/dL Estimated GFR ML/MIN Glucose (74-106) mg/dL POC Glucometer (74 to 106) mg/dL Lactic Acid 2.1 H (0.4-2.0) Calcium (8.4-10.2) mg/dL Magnesium (1.6-2.3) mg/dL Total Bilirubin (0.2-1.3) mg/dL AST (14-36) U/L ALT (0-35) U/L Alkaline Phosphatase (38-126) U/L Troponin I < 0.012 (0.000-0.033) ng/mL Serum Total Protein (6.3-8.2) g/dL Albumin (3.5-5.0) g/dL Salicylates (2-20) mg/dL Acetaminophen (10-30) ug/ml Ethyl Alcohol (0-10) mg/dL - Radiology Impressions Radiology Exams & Impressions: Radiology Procedures Category Date Time Status CERVICAL SPINE WO CONTRAST [CT] Stat Exams 02/08/25 00:20 Completed CHEST 1 VIEW (PORTABLE) Stat Exams 02/08/25 00:18 Taken HEAD WITHOUT CONTRAST [CT] Stat Exams 02/08/25 00:20 Completed Assessment/Plan (1) Lactic acidosis Current Visit: Yes Status: Acute Assessment & Plan: - LA 4.8 on admission, repeat 2.1, then 1.0 - No IVF boluses gave in ER - IVF at 100ml/hr - 2:2 seizure and alcohol intoxication - CBC, CMP reviewed Code(s): E87.20 - ACIDOSIS, UNSPECIFIED (2) Alcohol intoxication Current Visit: Yes Status: Acute Assessment & Plan: - Repeat alcohol level < 10 - IVF - Alcohol withdraw protocol - Recommend cessation (3) Status epilepticus Current Visit: Yes Status: Acute Assessment & Plan: - Has not had seizure meds for 3 days - Picking up RX at d/c at pharmacy - + alcohol intoxication - Neuro consult - Ativan PRN - Restarted home PO meds - Seizure precautions - C-spine and CT head negative - Follows neurology at [facility] - Recommend medication compliance Code(s): G40.901 - EPILEPSY, UNSP, NOT INTRACTABLE, WITH STATUS EPILEPTICUS (4) ETOH abuse Current Visit: No Status: Acute Assessment & Plan: - Denies a problem, refuses OP assistance or rehab Code(s): F10.10 - ALCOHOL ABUSE, UNCOMPLICATED (5) Depression with anxiety Current Visit: Yes Status: Chronic Assessment & Plan: - Continue home meds Code(s): F41.8 - OTHER SPECIFIED ANXIETY DISORDERS (6) Dehydration Current Visit: Yes Status: Acute Assessment & Plan: - IVF - Anion gap 15.4 Plan of care time > 46 minutes Code(s): E86.0 - DEHYDRATION
[2025-02-08] MEDS ORDERED: Ativan 2 MG/1 ML VIAL IV PRN ×2 (08:05→08:07)
--- NOTE | 2025-02-08 08:48 | XRAY ---
Indication: Altered mental status. Short of breath. Comparison: November 02, 2024 Portable chest again demonstrates normal heart, lungs, and bony thorax.
[2025-02-08 09:46] LABS: TROPONIN < 0.012 ng/mL (0.000-0.033)
[2025-02-08] MEDS ORDERED: NON-FORMULARY ITEM (Duloxetine Hcl [Duloxetine Hcl] 60 MG Capsule.Dr) PO SCH (10:00)
[2025-02-08] MEDS ORDERED: LACOSAMIDE 100 MG PO SCH (10:00)
[2025-02-08] MEDS ORDERED: ATOMOXETINE HCL 40 MG PO SCH (10:00)
[2025-02-08] MEDS ORDERED: LYRICA 75 MG CAP PO SCH (10:00)
[2025-02-08 10:28] LABS: ETHYL ALCOHOL < 10 mg/dL (0-10)
[2025-02-08] MEDS: FOLATE 1 MG PO SCH (10:29)
[2025-02-08] MEDS: VITAMIN B-1 100 MG PO SCH (10:29)
[2025-02-08] MEDS: Cymbalta 30 MG Capsule PO SCH (10:29)
[2025-02-08] MEDS: LYRICA 100MG PO SCH (10:29)
[2025-02-08] MEDS: THERAGRAN MULTIVITAMIN PO SCH (10:29)
[2025-02-08] MEDS: Compazine 10 MG/2 ML IV ONE (12:20)
--- NOTE | 2025-02-08 15:40 | PCM.CONS ---
History of Present Illness - Neuro Consultation ED Arrival Date & Time: 02/08/25 00:02 Providers: Attending Provider: MARY JANE MD ED Provider: ROOPA BARBOZA Consulting Provider: RUSTAM SHETTY MD cc:: The requesting physician will be sent a copy of the consult. - History of Present Illness HPI: is a 39-year-old female with a history of seizures, anxiety, depression, panic disorder, breast cancer, migraine and cervical cancer who presented to the ED via EMS and law enforcement on 02/07/25 for evaluation of recurrent seizures. Patient had another seizure in the ED. She reports that her last seizure was 2 months ago. She reports a remote history of status epilepticus. Patient has follow up with her neurologist in February. Patient reports that she is back to baseline. She reports frequent headaches and has a history of migraine. She stopped migraine medications 6 months ago becuase they were not occurring. She reports that they are now more frequent and severe. Patient reports that she was on Imitrex and Emgality. Home medications: Lacosamide [Vimpat] 150 mg PO BID 08/26/23 [History Confirmed 02/08/25] Pregabalin [Lyrica] 200 mg PO TID 08/26/23 [History Confirmed 02/08/25] Trazodone HCl 300 mg PO HS 08/26/23 [History Confirmed 02/08/25] Atomoxetine HCl 40 mg PO BID 02/08/25 [History Confirmed 02/08/25] Duloxetine HCl 60 mg PO BID 02/08/25 [History Confirmed 02/08/25] This is the extent of the patients complaints at this time. HPI: is a 39-year-old female with a history of seizures, anxiety, depression, panic disorder, breast cancer, and cervical cancer who presented to the ED via EMS and law enforcement on 02/07/25 for evaluation of recurrent seizures. EMS reported that she was actively seizing upon their arrival and received a total of 10 mg of midazolam (5 mg intranasally and 5 mg intramuscularly) with continued seizure activity en route. On arrival to the ED, the patient was unconscious but breathing spontaneously and protecting her airway. She experienced at least two additional seizures in the ED and was treated with a loading dose of fosphenytoin (20 mg/kg), which successfully controlled her seizures. CT scans of the head and cervical spine were negative for acute findings. Today, the patient is awake, alert, and sitting up in bed. She reports that she has not taken her seizure medication for the past three days after running out, though she has an active prescription verified by case management and plans to pick it up today. Her alcohol level on admission was 170 mg/dL, which decreased to less than 10 on repeat testing. She admits to drinking alcohol two times per week, typically consuming 612 beers per occasion, and also reports having two shots the night prior to her seizures, which she believes contributed to the event in combination with missed medications. Initial labs showed an anion gap of 15.4 and elevated lactic acid of 4.8. LA improved at 1.9 after IV fluid administration. Urine drug screen and neurology consult are pending. The patient denies any injuries from the seizure and has no current complaints. She will continue IV fluids, and if cleared by neurology, discharge is anticipated later today or tomorrow. She refuses help for alcohol addiction, and does not want rehab OP. Review of Systems - Review of Systems Review of Systems (Narrative): Pertinent positive and negative findings as per HPI. All other systems negative. Constitutional: Denies fevers, chills, weight loss ENT: Denies tinnitus Ophthalmology: Denies diplopia, blurred vision, vision loss Respiratory: Denies SOB, cough Cardiovascular: Denies chest pains, palpitations GI: Denies nausea, vomiting : Denies hematuria Hematology: Denies excessive bleeding Musculoskeletal: Denies back pain, neck pain, joint pain Neurology: Denies headache, altered mentation Mental Health: Denies anxiety Dermatology: Denies rash - Past Medical History Past Medical History: Yes Neurological History: Epilepsy, Migraines, Seizures ENT History: No Pertinent History Cardiac History: No Pertinent History Respiratory History: No Pertinent History Endocrine Medical History: No Pertinent History Musculoskelatal History: No Pertinent History GI Medical History: Gallbladder Disease History: No Pertinent History Pyscho-Social History: Anxiety, Depression, Panic Disorder Reproductive Disorders: Breast Cancer, Cervical Cancer Comment: Left breast CA, ADHD, osteomyelitis to left knee - Female History Hx Last Menstrual Period: partial hysterectomy Are you now?: No - Past Surgical History Past Surgical History: Yes Neuro Surgical History: No Pertinent History Cardiac History: No Pertinent History Respiratory Surgery: No Pertinent History GI Surgical History: Cholecystectomy Genitourinary Surgical Hx: No Pertinent History Musculskeletal Surgical Hx: No Pertinent History Female Surgical History: Hysterectomy, Tubal Ligation, Lumpectomy, Other Other Surgical History: Lumpectomy of the right breast. Lymph nodes intact. Partial Hysterectomy related to abnormal cervical cells - Social History Smoking Status: Current every day smoker How long have you smoked: 20 Exposure to second hand smoke: No Alcohol: Occasionally Drug Use: none - Social Determinants of Health Will the patient participate in the screening: Declined to provide Do you worry about a steady place to live?: No In the past 12 months,have you had to go without utilities?: No Have you or anyone in your house had to go without enough: No Transportation Issues: No Has anyone in your support network made you feel unsafe?: No Physical Exam - Vital Signs Vital Signs: Vital Signs - 24 hr 02/08/25 02/08/25 02/08/25 00:05 00:33 01:00 Temperature Pulse Rate 92 H 93 H Respiratory 24 18 Rate Blood Pressure 115/79 124/68 Blood Pressure [Right Arm] O2 Sat by Pulse 97 96 95 Oximetry 02/08/25 02/08/25 02/08/25 01:35 01:36 01:37 Temperature Pulse Rate 86 90 93 H Respiratory 5 L 18 15 Rate Blood Pressure 119/46 Blood Pressure [Right Arm] O2 Sat by Pulse 100 99 95 Oximetry 02/08/25 02/08/25 02/08/25 02:00 02:04 02:30 Temperature Pulse Rate 86 90 80 Respiratory 20 18 18 Rate Blood Pressure 86/62 93/68 97/65 Blood Pressure [Right Arm] O2 Sat by Pulse 95 95 99 Oximetry 02/08/25 02/08/25 02/08/25 03:00 03:30 04:00 Temperature Pulse Rate 78 84 99 H Respiratory 16 21 24 Rate Blood Pressure 120/77 106/71 112/65 Blood Pressure [Right Arm] O2 Sat by Pulse 100 95 98 Oximetry 02/08/25 02/08/25 02/08/25 04:31 04:57 05:15 Temperature 96.8 F Pulse Rate 76 66 Respiratory 17 20 Rate Blood Pressure 106/71 Blood Pressure 105/69 [Right Arm] O2 Sat by Pulse 100 96 100 Oximetry 02/08/25 02/08/25 02/08/25 05:20 07:56 11:56 Temperature 96.8 F 97.7 F 97.7 F Pulse Rate 66 89 89 Respiratory 20 20 20 Rate Blood Pressure Blood Pressure 105/69 98/55 98/55 [Right Arm] O2 Sat by Pulse 100 98 98 Oximetry - Physical Exam Tele-Neuro Physical Exam (Narrative): Gen: Well developed, well nourished. No acute distress. MS: Awake and oriented. Alert. Fund of knowledge and language at baseline. CV: Regular rate. No edema. ink blender: EOMI. +blink. Unable to visualize fundi. Sensation intact. Face is symmetric. Hearing intact. Trapezii strong. Tongue midline. Motor: Antigravity in all 4 extremities. Normal tone and bulk. Sens: Intact to light touch in all 4 extremities. MSR: Unable to assess through telemedicine, no clonus noted. Mvmt: No tremors noted. RENZO/FTN intact. Gait: Deferred. - Physical Exam General: no acute distress, well developed, well nourished Results - Labs Lab/Micro Results: Lab Results-Last 24 Hours 02/08/25 02/08/25 02/08/25 Range/Units 00:32 00:40 00:40 WBC 7.0 (3.98-10.04) x10^3/uL RBC 3.63 L (3.93-5.22) x10^6/uL Hgb 11.7 (11.2-15.7) g/dL Hct 34.3 (34.1-44.9) % MCV 94.5 (79.4-94.8) fL MCH 32.2 (25.6-32.2) pg MCHC 34.1 (32.2-35.5) g/dL RDW 11.7 (11.7-14.4) % Plt Count 247 (182-369) x10^3/uL MPV 9.5 (9.4-12.3) fL Gran % 68.2 (34.0-71.1) % Immature Gran % (Auto) 0.3 (0.001-0.429) % Nucleat RBC Rel Count 0.0 (0.00-0.2) % Eos # (Auto) 0.11 (0.04-0.36) x10^3/uL Immature Gran # (Auto) 0.02 (0.001-0.031) x10^3u/L Absolute Lymphs (auto) 1.63 (1.18-3.74) x10^3/uL Absolute Monos (auto) 0.42 (0.24-0.86) x10^3/uL Absolute Nucleated RBC 0.00 (0.00-0.012) x10^3u/L Lymphocytes % 23.3 (19.3-51.7) % Monocytes % 6.0 (4.7-12.5) % Eosinophils % 1.6 (0.7-5.8) % Basophils % 0.6 (0.1-1.2) % Absolute Granulocytes 4.78 (1.56-6.13) x10^3/uL Basophils # 0.04 (0.01-0.08) x10^3/uL Sodium (135-145) mmol/L Potassium (3.5-5.1) mmol/L Chloride (98-107) mmol/L Carbon Dioxide (22-30) mmol/L Anion Gap (5-15) MEQ/L BUN (7-17) mg/dL Creatinine (0.52-1.04) mg/dL Estimated GFR ML/MIN Glucose (74-106) mg/dL POC Glucometer 87 (74 to 106) mg/dL Lactic Acid 4.8 H (0.4-2.0) Calcium (8.4-10.2) mg/dL Magnesium (1.6-2.3) mg/dL Total Bilirubin (0.2-1.3) mg/dL AST (14-36) U/L ALT (0-35) U/L Alkaline Phosphatase (38-126) U/L Troponin I (0.000-0.033) ng/mL Serum Total Protein (6.3-8.2) g/dL Albumin (3.5-5.0) g/dL Salicylates (2-20) mg/dL Acetaminophen (10-30) ug/ml Ethyl Alcohol (0-10) mg/dL 02/08/25 02/08/25 02/08/25 Range/Units 00:40 00:40 00:40 WBC (3.98-10.04) x10^3/uL RBC (3.93-5.22) x10^6/uL Hgb (11.2-15.7) g/dL Hct (34.1-44.9) % MCV (79.4-94.8) fL MCH (25.6-32.2) pg MCHC (32.2-35.5) g/dL RDW (11.7-14.4) % Plt Count (182-369) x10^3/uL MPV (9.4-12.3) fL Gran % (34.0-71.1) % Immature Gran % (Auto) (0.001-0.429) % Nucleat RBC Rel Count (0.00-0.2) % Eos # (Auto) (0.04-0.36) x10^3/uL Immature Gran # (Auto) (0.001-0.031) x10^3u/L Absolute Lymphs (auto) (1.18-3.74) x10^3/uL Absolute Monos (auto) (0.24-0.86) x10^3/uL Absolute Nucleated RBC (0.00-0.012) x10^3u/L Lymphocytes % (19.3-51.7) % Monocytes % (4.7-12.5) % Eosinophils % (0.7-5.8) % Basophils % (0.1-1.2) % Absolute Granulocytes (1.56-6.13) x10^3/uL Basophils # (0.01-0.08) x10^3/uL Sodium 144 (135-145) mmol/L Potassium 3.6 (3.5-5.1) mmol/L Chloride 109 H (98-107) mmol/L Carbon Dioxide 23 (22-30) mmol/L Anion Gap 15.4 H (5-15) MEQ/L BUN 6 L (7-17) mg/dL Creatinine 0.65 (0.52-1.04) mg/dL Estimated GFR 114.1 ML/MIN Glucose 90 (74-106) mg/dL POC Glucometer (74 to 106) mg/dL Lactic Acid (0.4-2.0) Calcium 8.7 (8.4-10.2) mg/dL Magnesium 2.0 (1.6-2.3) mg/dL Total Bilirubin < 0.10 L (0.2-1.3) mg/dL AST 29 (14-36) U/L ALT 19 (0-35) U/L Alkaline Phosphatase 46 (38-126) U/L Troponin I < 0.012 (0.000-0.033) ng/mL Serum Total Protein 7.7 (6.3-8.2) g/dL Albumin 4.5 (3.5-5.0) g/dL Salicylates < 1.0 L (2-20) mg/dL Acetaminophen < 10 L (10-30) ug/ml Ethyl Alcohol 175 H (0-10) mg/dL 02/08/25 02/08/25 02/08/25 Range/Units 02:46 04:30 09:20 WBC (3.98-10.04) x10^3/uL RBC (3.93-5.22) x10^6/uL Hgb (11.2-15.7) g/dL Hct (34.1-44.9) % MCV (79.4-94.8) fL MCH (25.6-32.2) pg MCHC (32.2-35.5) g/dL RDW (11.7-14.4) % Plt Count (182-369) x10^3/uL MPV (9.4-12.3) fL Gran % (34.0-71.1) % Immature Gran % (Auto) (0.001-0.429) % Nucleat RBC Rel Count (0.00-0.2) % Eos # (Auto) (0.04-0.36) x10^3/uL Immature Gran # (Auto) (0.001-0.031) x10^3u/L Absolute Lymphs (auto) (1.18-3.74) x10^3/uL Absolute Monos (auto) (0.24-0.86) x10^3/uL Absolute Nucleated RBC (0.00-0.012) x10^3u/L Lymphocytes % (19.3-51.7) % Monocytes % (4.7-12.5) % Eosinophils % (0.7-5.8) % Basophils % (0.1-1.2) % Absolute Granulocytes (1.56-6.13) x10^3/uL Basophils # (0.01-0.08) x10^3/uL Sodium (135-145) mmol/L Potassium (3.5-5.1) mmol/L Chloride (98-107) mmol/L Carbon Dioxide (22-30) mmol/L Anion Gap (5-15) MEQ/L BUN (7-17) mg/dL Creatinine (0.52-1.04) mg/dL Estimated GFR ML/MIN Glucose (74-106) mg/dL POC Glucometer (74 to 106) mg/dL Lactic Acid 2.1 H (0.4-2.0) Calcium (8.4-10.2) mg/dL Magnesium (1.6-2.3) mg/dL Total Bilirubin (0.2-1.3) mg/dL AST (14-36) U/L ALT (0-35) U/L Alkaline Phosphatase (38-126) U/L Troponin I < 0.012 < 0.012 (0.000-0.033) ng/mL Serum Total Protein (6.3-8.2) g/dL Albumin (3.5-5.0) g/dL Salicylates (2-20) mg/dL Acetaminophen (10-30) ug/ml Ethyl Alcohol < 10 (0-10) mg/dL 02/08/25 Range/Units 12:12 WBC (3.98-10.04) x10^3/uL RBC (3.93-5.22) x10^6/uL Hgb (11.2-15.7) g/dL Hct (34.1-44.9) % MCV (79.4-94.8) fL MCH (25.6-32.2) pg MCHC (32.2-35.5) g/dL RDW (11.7-14.4) % Plt Count (182-369) x10^3/uL MPV (9.4-12.3) fL Gran % (34.0-71.1) % Immature Gran % (Auto) (0.001-0.429) % Nucleat RBC Rel Count (0.00-0.2) % Eos # (Auto) (0.04-0.36) x10^3/uL Immature Gran # (Auto) (0.001-0.031) x10^3u/L Absolute Lymphs (auto) (1.18-3.74) x10^3/uL Absolute Monos (auto) (0.24-0.86) x10^3/uL Absolute Nucleated RBC (0.00-0.012) x10^3u/L Lymphocytes % (19.3-51.7) % Monocytes % (4.7-12.5) % Eosinophils % (0.7-5.8) % Basophils % (0.1-1.2) % Absolute Granulocytes (1.56-6.13) x10^3/uL Basophils # (0.01-0.08) x10^3/uL Sodium (135-145) mmol/L Potassium (3.5-5.1) mmol/L Chloride (98-107) mmol/L Carbon Dioxide (22-30) mmol/L Anion Gap (5-15) MEQ/L BUN (7-17) mg/dL Creatinine (0.52-1.04) mg/dL Estimated GFR ML/MIN Glucose (74-106) mg/dL POC Glucometer (74 to 106) mg/dL Lactic Acid 1.0 (0.4-2.0) Calcium (8.4-10.2) mg/dL Magnesium (1.6-2.3) mg/dL Total Bilirubin (0.2-1.3) mg/dL AST (14-36) U/L ALT (0-35) U/L Alkaline Phosphatase (38-126) U/L Troponin I (0.000-0.033) ng/mL Serum Total Protein (6.3-8.2) g/dL Albumin (3.5-5.0) g/dL Salicylates (2-20) mg/dL Acetaminophen (10-30) ug/ml Ethyl Alcohol (0-10) mg/dL - Radiology Orders Radiology Orders: Radiology Procedures Category Date Time Status CERVICAL SPINE WO CONTRAST [CT] Stat Exams 02/08/25 00:20 Completed CHEST 1 VIEW (PORTABLE) Stat Exams 02/08/25 00:18 Completed HEAD WITHOUT CONTRAST [CT] Stat Exams 02/08/25 00:20 Completed CTH: no acute abnormality CT cervical: no fracture Impressions & Recommendations - ED Arrival Time ED Arrival Date & Time: ED Arrival Date and Time 02/08/25 00:02 Last known well time: Assessment & Plan - Encounter Encounter: "The entirety of this encounter was performed via Telemedicine using audio and visual " is a 39-year-old female with a history of seizures, anxiety, depression, panic disorder, breast cancer, migraine and cervical cancer who presented to the ED via EMS and law enforcement on 02/07/25 for evaluation of recurrent seizures. Breakthrough seizures likely secondary to medication noncompliance (patient was out of medications for 3 days). No focal neurologic signs on exam. Patient reports a history of epilepsy since childhood. Patient also reports a history of migraines, now untreated and progressively getting worse. She reports being on Imitrex and Emgality in the past. She reports she has follow up with her primary neurologist in February. No signs of withdrawal at this time. Ok to discharge with outpatient follow up from a neurologic perspective. - Lacosamide [Vimpat] 150 mg PO BID - Pregabalin [Lyrica] 200 mg PO TID - follow up with outpatient neurology Rustam Shetty MD Thank you for allowing us to participate in this patients care. Please call [facility] with questions, concerns, or change in patients neurological status. This consult was performed via secure telemedicine audio/visual platform, patient consent obtained.
[2025-02-08 16:12] VITALS: BP 95/54; PULSE 78; RESP 18; TEMP 97.6
--- NOTE | 2025-02-08 18:04 | PCM.DS ---
Discharge Summary Date of Admission: 02/08/25 04:56 Date of Discharge: 02/08/25 Admitting Physician: MARY JANE MD Consults: Consults on Case 02/08/25 08:00 Consult Neurology ROUTINE Primary Care Provider: TYLOR LEDBETTER NP Allergies Allergies No Known Drug Allergies Allergy (Verified 11/02/24 23:36) Hospital Summary - Hospital Course Hospital Course: is a 39-year-old female with a history of seizures, anxiety, depression, panic disorder, breast cancer, and cervical cancer who presented to the ED via EMS and law enforcement on 02/07/25 for evaluation of recurrent seizures. EMS reported that she was actively seizing upon their arrival and received a total of 10 mg of midazolam (5 mg intranasally and 5 mg intramuscularly) with continued seizure activity en route. On arrival to the ED, the patient was unconscious but breathing spontaneously and protecting her airway. She experienced at least two additional seizures in the ED and was treated with a loading dose of fosphenytoin (20 mg/kg), which successfully controlled her seizures. CT scans of the head and cervical spine were negative for acute findings. Today, the patient is awake, alert, and sitting up in bed. She reports that she has not taken her seizure medication for the past three days after running out, though she has an active prescription verified by case management and plans to pick it up today. Her alcohol level on admission was 170 mg/dL, which decreased to less than 10 on repeat testing. She admits to drinking alcohol two times per week, typically consuming 612 beers per occasion, and also reports having two shots the night prior to her seizures, which she believes contributed to the event in combination with missed medications. Initial labs showed an anion gap of 15.4 and elevated lactic acid of 4.8. LA improved at 1.9 after IV fluid administration. Urine drug screen and neurology consult are pending. The patient denies any injuries from the seizure and has no current complaints. She will continue IV fluids, and if cleared by neurology, discharge is anticipated later today or tomorrow. She refuses help for alcohol addiction, and does not want rehab OP. Neurology evaluated pt and ok with pt d/c today f/u OP. - Vitals & Intake/Output Vital Signs: Vital Signs Temperature 97.6 F 02/08/25 16:00 Pulse Rate 78 02/08/25 16:00 Respiratory Rate 18 02/08/25 16:00 Blood Pressure 95/54 02/08/25 16:00 O2 Sat by Pulse Oximetry 98 02/08/25 16:00 Intake & Output: Intake & Output 02/06/25 02/07/25 02/08/25 02/09/25 11:59 11:59 11:59 11:59 Intake Total 240 240 Balance 240 240 Weight 83 kg - Lab Result Diagrams: 02/08/25 00:40 02/08/25 00:40 Lab Results-Last 24 Hrs: Lab Results-Last 24 Hours 02/08/25 02/08/25 02/08/25 Range/Units 00:32 00:40 00:40 WBC 7.0 (3.98-10.04) x10^3/uL RBC 3.63 L (3.93-5.22) x10^6/uL Hgb 11.7 (11.2-15.7) g/dL Hct 34.3 (34.1-44.9) % MCV 94.5 (79.4-94.8) fL MCH 32.2 (25.6-32.2) pg MCHC 34.1 (32.2-35.5) g/dL RDW 11.7 (11.7-14.4) % Plt Count 247 (182-369) x10^3/uL MPV 9.5 (9.4-12.3) fL Gran % 68.2 (34.0-71.1) % Immature Gran % (Auto) 0.3 (0.001-0.429) % Nucleat RBC Rel Count 0.0 (0.00-0.2) % Eos # (Auto) 0.11 (0.04-0.36) x10^3/uL Immature Gran # (Auto) 0.02 (0.001-0.031) x10^3u/L Absolute Lymphs (auto) 1.63 (1.18-3.74) x10^3/uL Absolute Monos (auto) 0.42 (0.24-0.86) x10^3/uL Absolute Nucleated RBC 0.00 (0.00-0.012) x10^3u/L Lymphocytes % 23.3 (19.3-51.7) % Monocytes % 6.0 (4.7-12.5) % Eosinophils % 1.6 (0.7-5.8) % Basophils % 0.6 (0.1-1.2) % Absolute Granulocytes 4.78 (1.56-6.13) x10^3/uL Basophils # 0.04 (0.01-0.08) x10^3/uL Sodium (135-145) mmol/L Potassium (3.5-5.1) mmol/L Chloride (98-107) mmol/L Carbon Dioxide (22-30) mmol/L Anion Gap (5-15) MEQ/L BUN (7-17) mg/dL Creatinine (0.52-1.04) mg/dL Estimated GFR ML/MIN Glucose (74-106) mg/dL POC Glucometer 87 (74 to 106) mg/dL Lactic Acid 4.8 H (0.4-2.0) Calcium (8.4-10.2) mg/dL Magnesium (1.6-2.3) mg/dL Total Bilirubin (0.2-1.3) mg/dL AST (14-36) U/L ALT (0-35) U/L Alkaline Phosphatase (38-126) U/L Troponin I (0.000-0.033) ng/mL Serum Total Protein (6.3-8.2) g/dL Albumin (3.5-5.0) g/dL Salicylates (2-20) mg/dL Acetaminophen (10-30) ug/ml Ethyl Alcohol (0-10) mg/dL 02/08/25 02/08/25 02/08/25 Range/Units 00:40 00:40 00:40 WBC (3.98-10.04) x10^3/uL RBC (3.93-5.22) x10^6/uL Hgb (11.2-15.7) g/dL Hct (34.1-44.9) % MCV (79.4-94.8) fL MCH (25.6-32.2) pg MCHC (32.2-35.5) g/dL RDW (11.7-14.4) % Plt Count (182-369) x10^3/uL MPV (9.4-12.3) fL Gran % (34.0-71.1) % Immature Gran % (Auto) (0.001-0.429) % Nucleat RBC Rel Count (0.00-0.2) % Eos # (Auto) (0.04-0.36) x10^3/uL Immature Gran # (Auto) (0.001-0.031) x10^3u/L Absolute Lymphs (auto) (1.18-3.74) x10^3/uL Absolute Monos (auto) (0.24-0.86) x10^3/uL Absolute Nucleated RBC (0.00-0.012) x10^3u/L Lymphocytes % (19.3-51.7) % Monocytes % (4.7-12.5) % Eosinophils % (0.7-5.8) % Basophils % (0.1-1.2) % Absolute Granulocytes (1.56-6.13) x10^3/uL Basophils # (0.01-0.08) x10^3/uL Sodium 144 (135-145) mmol/L Potassium 3.6 (3.5-5.1) mmol/L Chloride 109 H (98-107) mmol/L Carbon Dioxide 23 (22-30) mmol/L Anion Gap 15.4 H (5-15) MEQ/L BUN 6 L (7-17) mg/dL Creatinine 0.65 (0.52-1.04) mg/dL Estimated GFR 114.1 ML/MIN Glucose 90 (74-106) mg/dL POC Glucometer (74 to 106) mg/dL Lactic Acid (0.4-2.0) Calcium 8.7 (8.4-10.2) mg/dL Magnesium 2.0 (1.6-2.3) mg/dL Total Bilirubin < 0.10 L (0.2-1.3) mg/dL AST 29 (14-36) U/L ALT 19 (0-35) U/L Alkaline Phosphatase 46 (38-126) U/L Troponin I < 0.012 (0.000-0.033) ng/mL Serum Total Protein 7.7 (6.3-8.2) g/dL Albumin 4.5 (3.5-5.0) g/dL Salicylates < 1.0 L (2-20) mg/dL Acetaminophen < 10 L (10-30) ug/ml Ethyl Alcohol 175 H (0-10) mg/dL 02/08/25 02/08/25 02/08/25 Range/Units 02:46 04:30 09:20 WBC (3.98-10.04) x10^3/uL RBC (3.93-5.22) x10^6/uL Hgb (11.2-15.7) g/dL Hct (34.1-44.9) % MCV (79.4-94.8) fL MCH (25.6-32.2) pg MCHC (32.2-35.5) g/dL RDW (11.7-14.4) % Plt Count (182-369) x10^3/uL MPV (9.4-12.3) fL Gran % (34.0-71.1) % Immature Gran % (Auto) (0.001-0.429) % Nucleat RBC Rel Count (0.00-0.2) % Eos # (Auto) (0.04-0.36) x10^3/uL Immature Gran # (Auto) (0.001-0.031) x10^3u/L Absolute Lymphs (auto) (1.18-3.74) x10^3/uL Absolute Monos (auto) (0.24-0.86) x10^3/uL Absolute Nucleated RBC (0.00-0.012) x10^3u/L Lymphocytes % (19.3-51.7) % Monocytes % (4.7-12.5) % Eosinophils % (0.7-5.8) % Basophils % (0.1-1.2) % Absolute Granulocytes (1.56-6.13) x10^3/uL Basophils # (0.01-0.08) x10^3/uL Sodium (135-145) mmol/L Potassium (3.5-5.1) mmol/L Chloride (98-107) mmol/L Carbon Dioxide (22-30) mmol/L Anion Gap (5-15) MEQ/L BUN (7-17) mg/dL Creatinine (0.52-1.04) mg/dL Estimated GFR ML/MIN Glucose (74-106) mg/dL POC Glucometer (74 to 106) mg/dL Lactic Acid 2.1 H (0.4-2.0) Calcium (8.4-10.2) mg/dL Magnesium (1.6-2.3) mg/dL Total Bilirubin (0.2-1.3) mg/dL AST (14-36) U/L ALT (0-35) U/L Alkaline Phosphatase (38-126) U/L Troponin I < 0.012 < 0.012 (0.000-0.033) ng/mL Serum Total Protein (6.3-8.2) g/dL Albumin (3.5-5.0) g/dL Salicylates (2-20) mg/dL Acetaminophen (10-30) ug/ml Ethyl Alcohol < 10 (0-10) mg/dL 02/08/25 Range/Units 12:12 WBC (3.98-10.04) x10^3/uL RBC (3.93-5.22) x10^6/uL Hgb (11.2-15.7) g/dL Hct (34.1-44.9) % MCV (79.4-94.8) fL MCH (25.6-32.2) pg MCHC (32.2-35.5) g/dL RDW (11.7-14.4) % Plt Count (182-369) x10^3/uL MPV (9.4-12.3) fL Gran % (34.0-71.1) % Immature Gran % (Auto) (0.001-0.429) % Nucleat RBC Rel Count (0.00-0.2) % Eos # (Auto) (0.04-0.36) x10^3/uL Immature Gran # (Auto) (0.001-0.031) x10^3u/L Absolute Lymphs (auto) (1.18-3.74) x10^3/uL Absolute Monos (auto) (0.24-0.86) x10^3/uL Absolute Nucleated RBC (0.00-0.012) x10^3u/L Lymphocytes % (19.3-51.7) % Monocytes % (4.7-12.5) % Eosinophils % (0.7-5.8) % Basophils % (0.1-1.2) % Absolute Granulocytes (1.56-6.13) x10^3/uL Basophils # (0.01-0.08) x10^3/uL Sodium (135-145) mmol/L Potassium (3.5-5.1) mmol/L Chloride (98-107) mmol/L Carbon Dioxide (22-30) mmol/L Anion Gap (5-15) MEQ/L BUN (7-17) mg/dL Creatinine (0.52-1.04) mg/dL Estimated GFR ML/MIN Glucose (74-106) mg/dL POC Glucometer (74 to 106) mg/dL Lactic Acid 1.0 (0.4-2.0) Calcium (8.4-10.2) mg/dL Magnesium (1.6-2.3) mg/dL Total Bilirubin (0.2-1.3) mg/dL AST (14-36) U/L ALT (0-35) U/L Alkaline Phosphatase (38-126) U/L Troponin I (0.000-0.033) ng/mL Serum Total Protein (6.3-8.2) g/dL Albumin (3.5-5.0) g/dL Salicylates (2-20) mg/dL Acetaminophen (10-30) ug/ml Ethyl Alcohol (0-10) mg/dL - Radiology Exams Ordered Rad Exams-Entire Visit: Radiology Procedures Category Date Time Status CERVICAL SPINE WO CONTRAST [CT] Stat Exams 02/08/25 00:20 Completed CHEST 1 VIEW (PORTABLE) Stat Exams 02/08/25 00:18 Completed HEAD WITHOUT CONTRAST [CT] Stat Exams 02/08/25 00:20 Completed Discharge Exam General Appearance: no apparent distress, alert Neurologic Exam: alert, oriented x 3, cooperative, normal mood/affect, nml cerebellar function, sensation nml, No motor deficits Eye Exam: PERRL, EOMI, eyes nml inspection Ears, Nose, Throat Exam: normal ENT inspection, pharynx normal, moist mucous membranes Neck Exam: normal inspection, non-tender, supple, full range of motion Respiratory Exam: normal breath sounds, lungs clear, No respiratory distress Cardiovascular Exam: regular rate/rhythm, normal heart sounds Gastrointestinal/Abdomen Exam: soft, No tenderness, No mass Pelvic Exam: deferred Rectal Exam: deferred Back Exam: normal inspection, normal range of motion, No CVA tenderness, No vertebral tenderness Extremity Exam: normal inspection, normal range of motion Skin Exam: normal color, warm, dry Final Diagnosis/Problem List - Final Discharge Diagnosis/Problem (1) Lactic acidosis Current Visit: Yes Status: Acute Code(s): E87.20 - ACIDOSIS, UNSPECIFIED (2) Alcohol intoxication Current Visit: Yes Status: Acute (3) Status epilepticus Current Visit: Yes Status: Acute Code(s): G40.901 - EPILEPSY, UNSP, NOT INTRACTABLE, WITH STATUS EPILEPTICUS (4) ETOH abuse Current Visit: No Status: Acute Code(s): F10.10 - ALCOHOL ABUSE, UNCOMPLICATED (5) Depression with anxiety Current Visit: Yes Status: Chronic Code(s): F41.8 - OTHER SPECIFIED ANXIETY DISORDERS (6) Dehydration Current Visit: Yes Status: Acute Assessment & Plan: (1) Lactic acidosis Current Visit: Yes Status: Acute Assessment & Plan: - LA 4.8 on admission, repeat 2.1, then 1.0 - No IVF boluses gave in ER - IVF at 100ml/hr - 2:2 seizure and alcohol intoxication - CBC, CMP reviewed Code(s): E87.20 - ACIDOSIS, UNSPECIFIED (2) Alcohol intoxication Current Visit: Yes Status: Acute Assessment & Plan: - Repeat alcohol level < 10 - IVF - Alcohol withdraw protocol - Recommend cessation (3) Status epilepticus Current Visit: Yes Status: Acute Assessment & Plan: - Has not had seizure meds for 3 days - Picking up RX at d/c at pharmacy - + alcohol intoxication - Neuro consult- reviewed note and agree with plan of care- may d/c and f/u OP with neurology - Ativan PRN - Restarted home PO meds - Seizure precautions - C-spine and CT head negative - Follows neurology at [facility] - Recommend medication compliance Code(s): G40.901 - EPILEPSY, UNSP, NOT INTRACTABLE, WITH STATUS EPILEPTICUS (4) ETOH abuse Current Visit: No Status: Acute Assessment & Plan: - Denies a problem, refuses OP assistance or rehab Code(s): F10.10 - ALCOHOL ABUSE, UNCOMPLICATED (5) Depression with anxiety Current Visit: Yes Status: Chronic Assessment & Plan: - Continue home meds Code(s): F41.8 - OTHER SPECIFIED ANXIETY DISORDERS (6) Dehydration Current Visit: Yes Status: Acute Assessment & Plan: - IVF - Anion gap 15.4 Plan of care time > 60 minutes Code(s): E86.0 - DEHYDRATION - Discharge Discharge Date: 02/08/25 Disposition: Home, Self-Care Condition: Stable Prescriptions: Continue Lacosamide [Vimpat] 150 mg PO BID Pregabalin [Lyrica] 200 mg PO TID Trazodone HCl 300 mg PO HS Duloxetine HCl 60 mg PO BID Atomoxetine HCl 40 mg PO BID Additional Instructions: GO TO [facility] AFTER DC AND [employer]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
[2025-02-08] MEDS ORDERED: DESYREL 50 MG PO SCH (22:00)
[2025-02-08] MEDS ORDERED: NON-FORMULARY ITEM (Trazodone Hcl [Trazodone Hcl] 100 MG Tablet) PO SCH (22:00)
== END 2025-02-08 18:33 | disposition home or self-care (01) ==
LOC: ED 00:02 → MED SURG 04:56
PROVIDERS: ADMIT Internal Medicine; ATTEND Internal Medicine
DX: E87.20 Acidosis, unspecified (principal); F10.129 Alcohol abuse with intoxication, unspecified; G40.901 Epilepsy, unspecified, not intractable, with status epilepticus; F10.10 Alcohol abuse, uncomplicated; F41.8 Other specified anxiety disorders; E86.0 Dehydration; F17.200 Nicotine dependence, unspecified, uncomplicated; Z79.899 Other long term (current) drug therapy; Z85.3 Personal history of malignant neoplasm of breast; Z85.41 Personal history of malignant neoplasm of cervix uteri

== ENCOUNTER 2025-02-13 22:30 | Emergency (ER) | payer BC ==
[2025-02-13 22:58] VITALS: TEMP 98
[2025-02-13 23:09] LABS: BASOPHIL % 0.8 % (0.1-1.2); Basophil (Absolute #) 0.04 x10^3/uL (0.01-0.08); Eosinophil (Absolute #) 0.17 x10^3/uL (0.04-0.36); Hematocrit 36.4 % (34.1-44.9); Hemoglobin 11.8 g/dL (11.2-15.7); IMMATURE GRAN # 0.02 x10^3u/L (0.001-0.031); IMMATURE GRAN % 0.4 % (0.001-0.429); Lymphocyte (Absolute #) 1.52 x10^3/uL (1.18-3.74); Mean Corpuscular Hemoglobin 31.5 pg (25.6-32.2); Mean Corpuscular Hgb Concent. 32.4 g/dL (32.2-35.5); Monocyte (Absolute #) 0.32 x10^3/uL (0.24-0.86); NUCLEATED RBC # 0.00 x10^3u/L (0.00-0.012); NUCLEATED RBC % 0.0 % (0.00-0.2); Platelet Count 263 x10^3/uL (182-369); Red Blood Count 3.75 x10^6/uL (3.93-5.22); White Blood Count 5.2 x10^3/uL (3.98-10.04)
[2025-02-13 23:15] LABS: Calcium 9.0 mg/dL (8.4-10.2); Carbon Dioxide 21 mmol/L (22-30); Creatinine 1 0.52 mg/dL (0.52-1.04); EST GLOMERULAR FILTRATION RATE 120.4 ML/MIN; Glucose 166 mg/dL (74-106); Potassium 3.4 mmol/L (3.5-5.1); SGOT/AST 24 U/L (14-36); SGPT/ALT 16 U/L (0-35); Total Protein 7.3 g/dL (6.3-8.2)
[2025-02-13 23:44] LABS: HCG URINE TEST NEGATIVE (NEGATIVE)
[2025-02-13 23:45] LABS: Glucose, Urine Negative (Negative); Protein,Urine Dip Negative (Negative); RBC 0-2 /HPF (0-5); WBC 0-2 /HPF (0-5)
[2025-02-13] MEDS ORDERED: Ativan 2 MG/1 ML VIAL ONE (23:49)
[2025-02-13 23:56] LABS: Amphetamine,Urine NEGATIVE (NEGATIVE); Barbiturate,Urine NEGATIVE (NEGATIVE); Benzodiazepine,Urine POSITIVE (NEGATIVE); Cocaine,Urine NEGATIVE (NEGATIVE); Methadone,Urine NEGATIVE (NEGATIVE); Opiate,Urine NEGATIVE (NEGATIVE); PCP,Urine NEGATIVE (NEGATIVE); THC,Urine NEGATIVE (NEGATIVE)
[2025-02-13] MEDS ORDERED: FOSPHENYTOIN SODIUM IV STA (23:57)
--- NOTE | 2025-02-14 00:22 | ERPHSYRPT ---
- History of Present Illness Time Seen by Provider: 02/14/25 00:19 Source: patient, EMS Exam Limitations: no limitations Patient Subjective Stated Complaint: EMS state, "We were called out for this patient who was seizing, a friend said she'd been drinking today and her seizures come on when she drinks. She is on seizure medication." Triage Nursing Assessment: Pt presents to ER by ambulance for seizure. Pt is sedated upon arrival, post 10mg versed from EMS. Pt is maintaining her airway with some slight snoring noted. Pt is on a NRB mask and some mild crackles noted in the bases. Pt skin is pink, warm, and dry. Respirations are easy. Pupils are 3mm bilateral and sluggish to respond to light. EMS reported pt had been consuming alcohol and reciept found with patient belongings for bar tab totaling 5 michelob beers, 5 nathen vodkas, and 2 crown whiskey. Pt has history of seizures and was reported to be on prescription seizure medications. EMS reported seizure activity lasted approx 20 minutes and was tonic clonic in nature. Physician History: Patient is a 39-year-old female history of epilepsy, breast cancer panic disorder anxiety depression presents to our ED for evaluation of a tonic-clonic seizure. Patient reports that she had been drinking. Patient states that her seizures typically occur when she drinks. Patient was at home with her significant other and reportedly had a seizure and slipped off the couch. No trauma. No severe headache. Patient received 10 mg of midazolam. 5 IM 5 intranasal. Patient has been on her epileptic medications and has not missed any doses. Portions of this note were created with voice recognition technology. There may be grammatical, spelling, punctuation or sound alike errors Timing/Duration: today Severity: moderate Modifying Factors: Improves With: nothing Associated Symptoms: denies symptoms Allergies/Adverse Reactions: No Known Drug Allergies Allergy (Verified 11/02/24 23:36) Home Medications: Lacosamide [Vimpat] 150 mg PO BID 08/26/23 [History] Pregabalin [Lyrica] 200 mg PO TID 08/26/23 [History] Trazodone HCl 300 mg PO HS 08/26/23 [History] Atomoxetine HCl 40 mg PO BID 02/08/25 [History] Duloxetine HCl 60 mg PO BID 02/08/25 [History] Hx Tetanus, Diphtheria Vaccination/Date Given: No (unknown) Hx Influenza Vaccination/Date Given: No (unknown) Hx Pneumococcal Vaccination/Date Given: No (unknown) Immunizations Up to Date: No (unknown) Travel Risk - International Travel Have you traveled outside of the country in past 3 weeks: No - Emerging Infectious Disease Are you exhibiting symptoms associated with any current EIDs: No Symptoms: Cough: New Onset, Shortness of Breath - Review of Systems All Other Systems: Reviewed and Negative - Past Medical History Pertinent Past Medical History: Yes Neurological History: Epilepsy, Migraines, Seizures ENT History: No Pertinent History Cardiac History: No Pertinent History Respiratory History: No Pertinent History Endocrine Medical History: No Pertinent History Musculoskeletal History: No Pertinent History GI Medical History: Gallbladder Disease History: No Pertinent History Psycho-Social History: Anxiety, Depression, Panic Disorder Female Reproductive Disorders: Breast Cancer, Cervical Cancer Other Medical History: Left breast CA, ADHD, osteomyelitis to left knee - Past Surgical History Past Surgical History: Yes Neuro Surgical History: No Pertinent History Cardiac: No Pertinent History Respiratory: No Pertinent History Gastrointestinal: Cholecystectomy Genitourinary: No Pertinent History Musculoskeletal: No Pertinent History Female Surgical History: Hysterectomy, Tubal Ligation, Lumpectomy, Other Other Surgical History: Lumpectomy of the right breast. Lymph nodes intact. Partial Hysterectomy related to abnormal cervical cells - Female History Hx Last Menstrual Period: unknown Hx Now: No (unknown) - Social History Smoking Status: Unknown if ever smoked Exposure to second hand smoke: (unknown) - Social Determinants of Health Will the patient participate in the screening: Unable to obtain - Nursing Vital Signs Nursing Vital Signs: Initial Vital Signs Pulse Rate 103 H 02/13/25 22:37 Respiratory Rate 23 02/13/25 22:37 Blood Pressure 109/73 02/13/25 22:37 O2 Sat by Pulse Oximetry 95 02/13/25 22:37 Pain Scale Pain Intensity 0 - Physical Exam General Appearance: no apparent distress, alert Eye Exam: PERRL/EOMI, eyes nml inspection Ears, Nose, Throat Exam: normal ENT inspection, pharynx normal, moist mucous membranes Neck Exam: normal inspection, non-tender, supple, full range of motion Respiratory Exam: normal breath sounds, lungs clear, airway intact, No respiratory distress Cardiovascular Exam: regular rate/rhythm, normal heart sounds, normal peripheral pulses Gastrointestinal/Abdomen Exam: soft, normal bowel sounds, No tenderness, No mass Back Exam: normal inspection, normal range of motion, No CVA tenderness, No vertebral tenderness Extremity Exam: normal inspection, normal range of motion, pelvis stable Neurologic Exam: alert, oriented x 3, cooperative, normal mood/affect, sensation nml, No motor deficits Skin Exam: normal color, warm, dry, No rash Lymphatic Exam: No adenopathy SpO2 Interpretation: normal SpO2: 98 O2 Delivery: Room Air - Course Nursing assessment & vital signs reviewed: Yes EKG Interpreted by Me: RATE (98), Sinus Rhythm, NORMAL AXIS, NORMAL QRS Ordered Tests: Active Orders 24 hr Category Date Time Status Top Coater STAT Care 02/13/25 23:02 Active EKG-ER Only STAT Care 02/13/25 23:01 Active IV Insertion STAT Care 02/13/25 23:01 Active Pulse Oximetry (ED) STAT Care 02/13/25 23:01 Active Alcohol [ETHYL ALCOHOL] Stat Lab 02/14/25 01:33 Completed CBC W DIFF Stat Lab 02/13/25 23:05 Completed CK (IN-HOUSE) [CK-Creatinine Phosphokinase] Stat Lab 02/14/25 01:52 Completed CMP Stat Lab 02/13/25 23:05 Completed HCG QUALITATIVE, URINE Stat Lab 02/13/25 23:36 Completed Lactic Acid Stat Lab 02/13/25 23:48 Completed Lactic Acid Stat Lab 02/14/25 01:53 Completed MAGNESIUM Stat Lab 02/13/25 23:05 Completed POCT GLUCOSE Stat Lab 02/13/25 22:40 Completed TROPONIN Q4H Lab 02/13/25 23:05 Completed TROPONIN Q4H Lab 02/14/25 07:15 Ordered UA W/RFX UR CULTURE Stat Lab 02/13/25 23:02 Completed Urine Triage Profile Stat Lab 02/13/25 23:02 Completed Medication Summary Generic Name Dose Route Start Last Admin Trade Name Freq PRN Reason Stop Dose Admin Fosphenytoin Sodium 1,500 mg 02/13/25 23:57 Fosphenytoin Na 100mg/2 Ml Vial IV 02/13/25 23:58 ONCE STA Sodium Chloride 1,000 mls @ 100 mls/hr 02/13/25 23:15 02/13/25 23:10 Sodium Chloride 0.9% 1000 Ml IV 03/15/25 23:14 100 mls/hr .Q10H ROB Administration Discontinued Medications Generic Name Dose Route Start Last Admin Trade Name Dianne PRN Reason Stop Dose Admin Fosphenytoin Sodium 1,500 mg/ 130 mls @ 250 mls/hr 02/14/25 00:03 02/14/25 00:57 Sodium Chloride IV 02/14/25 00:34 Infused STAT ONE Infusion Sodium Chloride Confirm 02/14/25 00:18 Sodium Chloride 0.9% Administered 02/14/25 00:19 Dose 100 mls @ ud .ROUTE .STK-MED ONE Lorazepam Confirm 02/13/25 23:49 Lorazepam 2 Mg/1 Ml 2 Mg Vial Administered 02/13/25 23:50 Dose 2 mg .ROUTE .STK-MED ONE Lab/Rad Data: Laboratory Result Diagrams 02/13/25 23:05 02/13/25 23:05 Laboratory Results 02/14/25 02/14/25 02/14/25 Range/Units 01:53 01:52 01:33 WBC (3.98-10.04) x10^3/uL RBC (3.93-5.22) x10^6/uL Hgb (11.2-15.7) g/dL Hct (34.1-44.9) % MCV (79.4-94.8) fL MCH (25.6-32.2) pg MCHC (32.2-35.5) g/dL RDW (11.7-14.4) % Plt Count (182-369) x10^3/uL MPV (9.4-12.3) fL Gran % (34.0-71.1) % Immature Gran % (Auto) (0.001-0.429) % Nucleat RBC Rel Count (0.00-0.2) % Eos # (Auto) (0.04-0.36) x10^3/uL Immature Gran # (Auto) (0.001-0.031) x10^3u/L Absolute Lymphs (auto) (1.18-3.74) x10^3/uL Absolute Monos (auto) (0.24-0.86) x10^3/uL Absolute Nucleated RBC (0.00-0.012) x10^3u/L Lymphocytes % (19.3-51.7) % Monocytes % (4.7-12.5) % Eosinophils % (0.7-5.8) % Basophils % (0.1-1.2) % Absolute Granulocytes (1.56-6.13) x10^3/uL Basophils # (0.01-0.08) x10^3/uL Sodium (135-145) mmol/L Potassium (3.5-5.1) mmol/L Chloride (98-107) mmol/L Carbon Dioxide (22-30) mmol/L Anion Gap (5-15) MEQ/L BUN (7-17) mg/dL Creatinine (0.52-1.04) mg/dL Estimated GFR ML/MIN Glucose (74-106) mg/dL POC Glucometer (74 to 106) mg/dL Lactic Acid 1.7 (0.4-2.0) Calcium (8.4-10.2) mg/dL Magnesium (1.6-2.3) mg/dL Total Bilirubin (0.2-1.3) mg/dL AST (14-36) U/L ALT (0-35) U/L Alkaline Phosphatase (38-126) U/L Creatine Kinase 30 (30-135) U/L Troponin I (0.000-0.033) ng/mL Serum Total Protein (6.3-8.2) g/dL Albumin (3.5-5.0) g/dL Urine Color (Yellow) Urine Appearance (Clear) Urine pH (4.6-8.0) Ur Specific [place] (1.005-1.030) Urine Protein (Negative) Urine Glucose (UA) (Negative) mg/dL Urine Ketones (Negative) Urine Blood (Negative) Urine Nitrite (Negative) Urine Bilirubin (Negative) Urine Urobilinogen (0.2) mg/dL Ur Leukocyte Esterase (Negative) U Hyaline Cast (Auto) (0-2) /LPF Urine Microscopic RBC (0-5) /HPF Urine Microscopic WBC (0-5) /HPF Ur Epithelial Cells (None Seen) /HPF Urine Bacteria (None Seen) /HPF Urine Culture Reflexed (NO) Urine HCG, Qual (NEGATIVE) Urine Opiates Level (NEGATIVE) Ur Methadone (NEGATIVE) Urine Barbiturates (NEGATIVE) Ur Phencyclidine (PCP) (NEGATIVE) Urine Amphetamine (NEGATIVE) U Benzodiazepine Level (NEGATIVE) Urine Cocaine (NEGATIVE) Urine Marijuana (THC) (NEGATIVE) Ethyl Alcohol 165 H (0-10) mg/dL 02/13/25 02/13/25 02/13/25 Range/Units 23:48 23:36 23:05 WBC (3.98-10.04) x10^3/uL RBC (3.93-5.22) x10^6/uL Hgb (11.2-15.7) g/dL Hct (34.1-44.9) % MCV (79.4-94.8) fL MCH (25.6-32.2) pg MCHC (32.2-35.5) g/dL RDW (11.7-14.4) % Plt Count (182-369) x10^3/uL MPV (9.4-12.3) fL Gran % (34.0-71.1) % Immature Gran % (Auto) (0.001-0.429) % Nucleat RBC Rel Count (0.00-0.2) % Eos # (Auto) (0.04-0.36) x10^3/uL Immature Gran # (Auto) (0.001-0.031) x10^3u/L Absolute Lymphs (auto) (1.18-3.74) x10^3/uL Absolute Monos (auto) (0.24-0.86) x10^3/uL Absolute Nucleated RBC (0.00-0.012) x10^3u/L Lymphocytes % (19.3-51.7) % Monocytes % (4.7-12.5) % Eosinophils % (0.7-5.8) % Basophils % (0.1-1.2) % Absolute Granulocytes (1.56-6.13) x10^3/uL Basophils # (0.01-0.08) x10^3/uL Sodium (135-145) mmol/L Potassium (3.5-5.1) mmol/L Chloride (98-107) mmol/L Carbon Dioxide (22-30) mmol/L Anion Gap (5-15) MEQ/L BUN (7-17) mg/dL Creatinine (0.52-1.04) mg/dL Estimated GFR ML/MIN Glucose (74-106) mg/dL POC Glucometer (74 to 106) mg/dL Lactic Acid 4.8 H (0.4-2.0) Calcium (8.4-10.2) mg/dL Magnesium (1.6-2.3) mg/dL Total Bilirubin (0.2-1.3) mg/dL AST (14-36) U/L ALT (0-35) U/L Alkaline Phosphatase (38-126) U/L Creatine Kinase (30-135) U/L Troponin I < 0.012 (0.000-0.033) ng/mL Serum Total Protein (6.3-8.2) g/dL Albumin (3.5-5.0) g/dL Urine Color (Yellow) Urine Appearance (Clear) Urine pH (4.6-8.0) Ur Specific [place] (1.005-1.030) Urine Protein (Negative) Urine Glucose (UA) (Negative) mg/dL Urine Ketones (Negative) Urine Blood (Negative) Urine Nitrite (Negative) Urine Bilirubin (Negative) Urine Urobilinogen (0.2) mg/dL Ur Leukocyte Esterase (Negative) U Hyaline Cast (Auto) (0-2) /LPF Urine Microscopic RBC (0-5) /HPF Urine Microscopic WBC (0-5) /HPF Ur Epithelial Cells (None Seen) /HPF Urine Bacteria (None Seen) /HPF Urine Culture Reflexed (NO) Urine HCG, Qual NEGATIVE (NEGATIVE) Urine Opiates Level (NEGATIVE) Ur Methadone (NEGATIVE) Urine Barbiturates (NEGATIVE) Ur Phencyclidine (PCP) (NEGATIVE) Urine Amphetamine (NEGATIVE) U Benzodiazepine Level (NEGATIVE) Urine Cocaine (NEGATIVE) Urine Marijuana (THC) (NEGATIVE) Ethyl Alcohol (0-10) mg/dL 02/13/25 02/13/25 02/13/25 Range/Units 23:05 23:05 23:02 WBC 5.2 (3.98-10.04) x10^3/uL RBC 3.75 L (3.93-5.22) x10^6/uL Hgb 11.8 (11.2-15.7) g/dL Hct 36.4 (34.1-44.9) % MCV 97.1 H (79.4-94.8) fL MCH 31.5 (25.6-32.2) pg MCHC 32.4 (32.2-35.5) g/dL RDW 12.1 (11.7-14.4) % Plt Count 263 (182-369) x10^3/uL MPV 9.4 (9.4-12.3) fL Gran % 60.5 (34.0-71.1) % Immature Gran % (Auto) 0.4 (0.001-0.429) % Nucleat RBC Rel Count 0.0 (0.00-0.2) % Eos # (Auto) 0.17 (0.04-0.36) x10^3/uL Immature Gran # (Auto) 0.02 (0.001-0.031) x10^3u/L Absolute Lymphs (auto) 1.52 (1.18-3.74) x10^3/uL Absolute Monos (auto) 0.32 (0.24-0.86) x10^3/uL Absolute Nucleated RBC 0.00 (0.00-0.012) x10^3u/L Lymphocytes % 29.0 (19.3-51.7) % Monocytes % 6.1 (4.7-12.5) % Eosinophils % 3.2 (0.7-5.8) % Basophils % 0.8 (0.1-1.2) % Absolute Granulocytes 3.17 (1.56-6.13) x10^3/uL Basophils # 0.04 (0.01-0.08) x10^3/uL Sodium 141 (135-145) mmol/L Potassium 3.4 L (3.5-5.1) mmol/L Chloride 106 (98-107) mmol/L Carbon Dioxide 21 L (22-30) mmol/L Anion Gap 16.9 H (5-15) MEQ/L BUN 4 L (7-17) mg/dL Creatinine 0.52 (0.52-1.04) mg/dL Estimated GFR 120.4 ML/MIN Glucose 166 H (74-106) mg/dL POC Glucometer (74 to 106) mg/dL Lactic Acid (0.4-2.0) Calcium 9.0 (8.4-10.2) mg/dL Magnesium 1.9 (1.6-2.3) mg/dL Total Bilirubin < 0.10 L (0.2-1.3) mg/dL AST 24 (14-36) U/L ALT 16 (0-35) U/L Alkaline Phosphatase 47 (38-126) U/L Creatine Kinase (30-135) U/L Troponin I (0.000-0.033) ng/mL Serum Total Protein 7.3 (6.3-8.2) g/dL Albumin 4.5 (3.5-5.0) g/dL Urine Color (Yellow) Urine Appearance (Clear) Urine pH (4.6-8.0) Ur Specific [place] (1.005-1.030) Urine Protein (Negative) Urine Glucose (UA) (Negative) mg/dL Urine Ketones (Negative) Urine Blood (Negative) Urine Nitrite (Negative) Urine Bilirubin (Negative) Urine Urobilinogen (0.2) mg/dL Ur Leukocyte Esterase (Negative) U Hyaline Cast (Auto) (0-2) /LPF Urine Microscopic RBC (0-5) /HPF Urine Microscopic WBC (0-5) /HPF Ur Epithelial Cells (None Seen) /HPF Urine Bacteria (None Seen) /HPF Urine Culture Reflexed (NO) Urine HCG, Qual (NEGATIVE) Urine Opiates Level NEGATIVE (NEGATIVE) Ur Methadone NEGATIVE (NEGATIVE) Urine Barbiturates NEGATIVE (NEGATIVE) Ur Phencyclidine (PCP) NEGATIVE (NEGATIVE) Urine Amphetamine NEGATIVE (NEGATIVE) U Benzodiazepine Level POSITIVE A (NEGATIVE) Urine Cocaine NEGATIVE (NEGATIVE) Urine Marijuana (THC) NEGATIVE (NEGATIVE) Ethyl Alcohol (0-10) mg/dL 02/13/25 02/13/25 Range/Units 23:02 22:40 WBC (3.98-10.04) x10^3/uL RBC (3.93-5.22) x10^6/uL Hgb (11.2-15.7) g/dL Hct (34.1-44.9) % MCV (79.4-94.8) fL MCH (25.6-32.2) pg MCHC (32.2-35.5) g/dL RDW (11.7-14.4) % Plt Count (182-369) x10^3/uL MPV (9.4-12.3) fL Gran % (34.0-71.1) % Immature Gran % (Auto) (0.001-0.429) % Nucleat RBC Rel Count (0.00-0.2) % Eos # (Auto) (0.04-0.36) x10^3/uL Immature Gran # (Auto) (0.001-0.031) x10^3u/L Absolute Lymphs (auto) (1.18-3.74) x10^3/uL Absolute Monos (auto) (0.24-0.86) x10^3/uL Absolute Nucleated RBC (0.00-0.012) x10^3u/L Lymphocytes % (19.3-51.7) % Monocytes % (4.7-12.5) % Eosinophils % (0.7-5.8) % Basophils % (0.1-1.2) % Absolute Granulocytes (1.56-6.13) x10^3/uL Basophils # (0.01-0.08) x10^3/uL Sodium (135-145) mmol/L Potassium (3.5-5.1) mmol/L Chloride (98-107) mmol/L Carbon Dioxide (22-30) mmol/L Anion Gap (5-15) MEQ/L BUN (7-17) mg/dL Creatinine (0.52-1.04) mg/dL Estimated GFR ML/MIN Glucose (74-106) mg/dL POC Glucometer 160 H (74 to 106) mg/dL Lactic Acid (0.4-2.0) Calcium (8.4-10.2) mg/dL Magnesium (1.6-2.3) mg/dL Total Bilirubin (0.2-1.3) mg/dL AST (14-36) U/L ALT (0-35) U/L Alkaline Phosphatase (38-126) U/L Creatine Kinase (30-135) U/L Troponin I (0.000-0.033) ng/mL Serum Total Protein (6.3-8.2) g/dL Albumin (3.5-5.0) g/dL Urine Color Yellow (Yellow) Urine Appearance Clear (Clear) Urine pH 6.0 (4.6-8.0) Ur Specific [place] <=1.005 (1.005-1.030) Urine Protein Negative (Negative) Urine Glucose (UA) Negative (Negative) mg/dL Urine Ketones Negative (Negative) Urine Blood Negative (Negative) Urine Nitrite Negative (Negative) Urine Bilirubin Negative (Negative) Urine Urobilinogen 0.2 (0.2) mg/dL Ur Leukocyte Esterase Negative (Negative) U Hyaline Cast (Auto) NONE SEEN (0-2) /LPF Urine Microscopic RBC 0-2 (0-5) /HPF Urine Microscopic WBC 0-2 (0-5) /HPF Ur Epithelial Cells None Seen (None Seen) /HPF Urine Bacteria None Seen (None Seen) /HPF Urine Culture Reflexed NO (NO) Urine HCG, Qual (NEGATIVE) Urine Opiates Level (NEGATIVE) Ur Methadone (NEGATIVE) Urine Barbiturates (NEGATIVE) Ur Phencyclidine (PCP) (NEGATIVE) Urine Amphetamine (NEGATIVE) U Benzodiazepine Level (NEGATIVE) Urine Cocaine (NEGATIVE) Urine Marijuana (THC) (NEGATIVE) Ethyl Alcohol (0-10) mg/dL - Progress Progress: improved Progress Note: Spoke to neurologist at 1:52 AM. She advised obtaining a CK, trend the lactic, order an alcohol and a . Patient reassessed. She is now fully awake and at her baseline. Patient requesting to be discharged. Patient understands that she is to increase her Vimpat to 200 mg twice a day. Patient agrees to discontinue the alcohol as this seems to trigger her seizures. Patient agrees not to drive her vehicle until cleared to do so by her primary care doctor. Patient's lactic acid has normalized. CK within normal limits. negative. Patient denies pain or discomfort. She is conversant well-appearing and in no distress. Repeat exam shows that patient is neurologically normal. No focal or lateralizing symptomology Patient states she does not any prescription for Vimpat. She has enough at home. History obtained from patient and EMS Portions of this note were created with voice recognition technology. There may be grammatical, spelling, punctuation or sound alike errors Complexity of problems addressed is moderate acute complicated. No critical care time. Complexity of data reviewed and analyzed is extensive. Test ordered chest reviewed results analyzed and correlated clinically with history and physical exam. Discussed with teleneurologist. Risk of complication and or risk of morbidity/mortality of patient management is low. Vital stable. Time spent to discharge patient is approximately 15 minutes. Plan of care established for shared decision making. No social determinants of health present to impede follow-up. Portions of this note were created with voice recognition technology. There may be grammatical, spelling, punctuation or sound alike errors 02/14/25 01:55 Counseled pt/family regarding: diagnosis, need for follow-up, rad results - Departure Departure Disposition: Home Clinical Impression: Seizure Condition: Stable Critical Care Time: No Referrals: TYLOR LEDBETTER, BIOMECH[employer]ICAL ENGINEER [Primary Care Provider, UNKNOWN] - Follow up/PCP as directed Additional Instructions: Discharge/Care Plan LALITO REA was seen on 02/14/25 in the Emergency Room. The patient was counseled regarding Diagnosis,Lab results, Imaging studies, need for follow up and when to return to the Emergency Room. Prescriptions given: Discharge Note I have spoken with the patient and/or caregivers. I have explained the patient's condition, diagnosis and treatment plan based on the information available to me at this time. I have answered the patient's and/or caregiver's questions and addressed any concerns. The patient and/or caregivers have as good understanding of the patient's diagnosis, condition and treatment plan as can be expected at this point. The vital signs have been stable. The patient's condition is stable and appropriate for discharge from the emergency department. The patient will pursue further outpatient evaluation with the primary care physician or other designated or consulting physician as outlined in the discharge instructions. The patient and/or caregivers are agreeable to this plan of care and follow-up instructions have been explained in detail. The patient and/or caregivers have received these instruction. The patient/and or caregivers are aware that any significant change in condition or worsening of symptoms should prompt an immediate return to this or the closest emergency department or call 911.
[2025-02-14] MEDS: SODIUM CHLORIDE 0.9% IV ONE (00:26)
[2025-02-14] MEDS: CEREBYX IV ONE (00:26)
--- NOTE | 2025-02-14 01:57 | PCM.CONS ---
History of Present Illness - Neuro Consultation ED Arrival Date & Time: 02/13/25 22:30 Providers: Attending Provider: ED Provider: ROOPA MUNIZ Consulting Provider: BETSY CHAVES MD cc:: The requesting physician will be sent a copy of the consult. - History of Present Illness HPI: Physician Signature This document was electronically signed by: Betsy Chaves MD 02/14/2025 01:55 AM Consult Cover Page [facility] - Teleneurology Consult Note Call Back Number: [phone] Date and Time of Report: 02/14/2025 01:55 AM ET Consult Information Client Facility: [facility] Consult ID: [id number] Facility Time Zone: ET Date and Time of Request: 02-14-2025 01:10 AM ET Requesting Clinician: DR. ROOPA MUNIZ Patient Name: LALITO REA Date of : 1985 Teleneurology Criminal Legal Assistant: Betsy Chaves MD Miscellaneous Patient identity was confirmed at the beginning of the consult with the patient/family/staff using two personal identifiers: Patient name and This visit was performed using real-time audio and video connection between my location and the patient's location with the assistance of a surrogate at the patient's location. Verbal consent was obtained from the patient/family to perform this visit using synchronous telemedicine technology. Any questions regarding the telemedicine interaction were answered. If written or oral consent could not be obtained due to the patient's condition, consent was assumed given the emergent nature of the consultation. I have obtained verbal consent from patient/surrogate for two-way audio/visual encounter: Yes Reason for Consult Reason for Consult: Other Emergency Assessment and Recommendations Case discussed with: Dr. Muniz Assessment: is a 39-year-old female with a history of epilepsy, anxiety, depression, panic disorder, breast cancer in remission since 2017, migraine and cervical cancer who presents to the ED for GTCs. Recommendations: Patient loaded with 1500 mg fospheny x1 and given 10 mg versed en route. She is currently lethargic but arousable to voice, AOx3, able to follow simple commands and provide limited history. Discussed with patient that she thinks her excessive drinking tonight contributed to her breakthrough seizures and I counseled patient on the dangers of this especially given that this is known provoking factor for her seizures. She reports being compliant with her AED therapy leading up to today with no missed doses. Recommend increasing vimpat to 200 mg bid. Recommend obtaining CK, trending lactate, etoh level and CORY protocol as ne cessary test Recommend continued OP neuro FU if patient improves to baseline. If patient continues to remain different from baseline or have breakthrough seizures or neuro deficits, please alert teleneuro Synchronous Audio-Visual Visit: Patient Consent Obtained?This visit was performed using real-time audio and video connection between my location and the patients location with the assistance of a surrogate at the patients location. Written or verbal consent was obtained from the patient/guardian to perform this visit using synchronous telemedicine technology. Any patient questions regarding the telemedicine interaction were answered. Diagnosis: status epilepticus ICD-10 Code ICD-10 Code (Primary): G40.89 : Other seizures ICD-10 Code: G40.911 : Epilepsy, unspecified, intractable, with status epilepticus ICD-10 Code: R56.9 : Unspecified convulsions Clinical Evaluation Chief Complaint: seizures Patient Location and Admission Status: ED- Patient is not admitted Family Members and Medical Staff Present: RN, History of Present Illness: is a 39-year-old female with a history of epilepsy, anxiety, depression, panic disorder, breast cancer in remission since 2017, migraine and cervical cancer who presents to the ED for GTCs. Her loved one is at bedside and provides some of the history due to patient's lethargy . She was seizing intermittently for about 20-25 minutes and had a 45 second GTC while in the ED. She was given 10 mg versed via ems 1500 mg fospheny. She had been drinking etoh prior to her seizures and may have been drinking prior to that because she was at a bar. Of note, she was recently evaluated in the ED on 02/08 after presenting with recurrent seizures in the setting of medication noncompliance. She was discharged on her home AED therapy including vimpat 150 mg bid as well as lyrica 200 mg TID with OP neuro FU. Notes indicate that she frequently has breakthrough seizures in the setting of drinking etoh. She reports that nothing is bothering her aside from feeling very tired. she was only able to provide limited history due to lethargy but is able to tell us that she has been taking her AED therapy everyday with no missed doses .She reports that she was drinking heavily tonight and thinks that likely contributed to her breakthrough seizures. she notes that she has follow up with her OP neurologist in early february. Medical History Other Medical History: as noted in HPI Past Procedures: Unknown Social History Alcohol Use: Current Illicit Drug Use: Past Tobacco Use: Unknown Family History Pertinent Family History: Unknown Allergies Allergies: NKDA Medications Anti-Coagulants: None Anti-Platelets: None Other Medications: vimpat 150 mg bid Vital Signs Temperature: Afebrile Blood Pressure (mmHg): 97/66 Heart Rate (bpm): 93 O2 Sat (%): 96 POC Glucose(mg/dL): 166 Weight in lbs: 1832.0 Weight in KGs: 831.0 Date and Time: 02/14/2025 01:33:30 AM ET Review of Systems Indicate reason (i.e. clinical condition) ROS was unobtainable: AMS Exam Exam: Gen: Well developed, well nourished. No acute distress but very lethargic. MS: Awake and oriented x3. lethargic but arousable to verbal stimuli. often limited with her verbal output but no dysarthria or aphasia noted. able to follow simple commands and provide limited history 2/2 lethargy. CV: Regular rate. No edema. 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 CHARI VF due to AMS. +blink. Unable to visualize fundi through telemedicine. Face is symmetric. Hearing intact to voice.Tongue midline. Motor: Antigravity in all 4 extremities. Normal bulk. Sens: Intact to light touch in all 4 extremities. MSR: Unable to assess through telemedicine, no clonus noted. Mvmt: No tremors noted. CHARI FTN 2/2 MS Gait: Deferred. Clinician assisting with exam: RN Labs and Imaging I reviewed labs: Yes I reviewed diagnostic reports such as radiological imaging, echocardiogram, and EEG reports: Yes I reviewed diagnostics such as radiological images and electroencephalograms: Yes Labs and Imaging Comments: WBC 5.2, plt 263, k 3.4, lactic acid 4.8, uds +benzos Portions of the evaluation were not assessed due to the following:: Unresponsive/Sedated/Intubated Attestation Interaction Mode: Video & Phone Time of Phone Call : 02-14-2025 01:50 AM ET Time of Video Call : 02-14-2025 01:25 AM ET Rodriguez Timer Summary ED Arrival Date and Time: 02-13-2025 10:30 PM ET Date and Time of Request: 02-14-2025 01:10 AM ET Review of Systems - Review of Systems Review of Systems (Narrative): Pertinent positive and negative findings as per HPI. All other systems negative. - Past Medical History Past Medical History: Yes Neurological History: Epilepsy, Migraines, Seizures ENT History: No Pertinent History Cardiac History: No Pertinent History Respiratory History: No Pertinent History Endocrine Medical History: No Pertinent History Musculoskelatal History: No Pertinent History GI Medical History: Gallbladder Disease History: No Pertinent History Pyscho-Social History: Anxiety, Depression, Panic Disorder Reproductive Disorders: Breast Cancer, Cervical Cancer Comment: Left breast CA, ADHD, osteomyelitis to left knee - Female History Hx Last Menstrual Period: unknown Are you now?: No (unknown) - Past Surgical History Past Surgical History: Yes Neuro Surgical History: No Pertinent History Cardiac History: No Pertinent History Respiratory Surgery: No Pertinent History GI Surgical History: Cholecystectomy Genitourinary Surgical Hx: No Pertinent History Musculskeletal Surgical Hx: No Pertinent History Female Surgical History: Hysterectomy, Tubal Ligation, Lumpectomy, Other Other Surgical History: Lumpectomy of the right breast. Lymph nodes intact. Par tial Hysterectomy related to abnormal cervical cells - Social History Smoking Status: Unknown if ever smoked How long have you smoked: 20 Exposure to second hand smoke: (unknown) Alcohol: Occasionally Drug Use: none - Social Determinants of Health Will the patient participate in the screening: Unable to obtain Do you worry about a steady place to live?: No In the past 12 months,have you had to go without utilities?: No Have you or anyone in your house had to go without enough: No Transportation Issues: No Has anyone in your support network made you feel unsafe?: No Physical Exam - Vital Signs Vital Signs: Vital Signs - 24 hr 02/13/25 02/13/25 02/13/25 22:37 22:38 23:00 Temperature 98.0 F Pulse Rate 103 H 98 H 101 H Respiratory 23 20 18 Rate Blood Pressure 109/73 95/65 Blood Pressure 109/73 [Left Arm] O2 Sat by Pulse 95 100 95 Oximetry 02/13/25 02/13/25 02/13/25 23:01 23:30 23:50 Temperature Pulse Rate 129 H 90 Respiratory 26 H 23 Rate Blood Pressure 95/64 108/74 Blood Pressure [Left Arm] O2 Sat by Pulse 95 99 99 Oximetry 02/14/25 02/14/25 02/14/25 00:00 00:29 00:30 Temperature Pulse Rate 84 91 H Respiratory 21 15 Rate Blood Pressure 96/71 101/74 Blood Pressure [Left Arm] O2 Sat by Pulse 99 98 94 L Oximetry 02/14/25 01:00 Temperature Pulse Rate 93 H Respiratory 18 Rate Blood Pressure 93/62 Blood Pressure [Left Arm] O2 Sat by Pulse 95 Oximetry Results - Labs Lab/Micro Results: Lab Results-Last 24 Hours 02/13/25 02/13/25 02/13/25 Range/Units 22:40 23:02 23:02 WBC (3.98-10.04) x10^3/uL RBC (3.93-5.22) x10^6/uL Hgb (11.2-15.7) g/dL Hct (34.1-44.9) % MCV (79.4-94.8) fL MCH (25.6-32.2) pg MCHC (32.2-35.5) g/dL RDW (11.7-14.4) % Plt Count (182-369) x10^3/uL MPV (9.4-12.3) fL Gran % (34.0-71.1) % Immature Gran % (Auto) (0.001-0.429) % Nucleat RBC Rel Count (0.00-0.2) % Eos # (Auto) (0.04-0.36) x10^3/uL Immature Gran # (Auto) (0.001-0.031) x10^3u/L Absolute Lymphs (auto) (1.18-3.74) x10^3/uL Absolute Monos (auto) (0.24-0.86) x10^3/uL Absolute Nucleated RBC (0.00-0.012) x10^3u/L Lymphocytes % (19.3-51.7) % Monocytes % (4.7-12.5) % Eosinophils % (0.7-5.8) % Basophils % (0.1-1.2) % Absolute Granulocytes (1.56-6.13) x10^3/uL Basophils # (0.01-0.08) x10^3/uL Sodium (135-145) mmol/L Potassium (3.5-5.1) mmol/L Chloride (98-107) mmol/L Carbon Dioxide (22-30) mmol/L Anion Gap (5-15) MEQ/L BUN (7-17) mg/dL Creatinine (0.52-1.04) mg/dL Estimated GFR ML/MIN Glucose (74-106) mg/dL POC Glucometer 160 H (74 to 106) mg/dL Lactic Acid (0.4-2.0) Calcium (8.4-10.2) mg/dL Magnesium (1.6-2.3) mg/dL Total Bilirubin (0.2-1.3) mg/dL AST (14-36) U/L ALT (0-35) U/L Alkaline Phosphatase (38-126) U/L Troponin I (0.000-0.033) ng/mL Serum Total Protein (6.3-8.2) g/dL Albumin (3.5-5.0) g/dL Urine Color Yellow (Yellow) Urine Appearance Clear (Clear) Urine pH 6.0 (4.6-8.0) Ur Specific Bangs <=1.005 (1.005-1.030) Urine Protein Negative (Negative) Urine Glucose (UA) Negative (Negative) mg/dL Urine Ketones Negative (Negative) Urine Blood Negative (Negative) Urine Nitrite Negative (Negative) Urine Bilirubin Negative (Negative) Urine Urobilinogen 0.2 (0.2) mg/dL Ur Leukocyte Esterase Negative (Negative) U Hyaline Cast (Auto) NONE SEEN (0-2) /LPF Urine Microscopic RBC 0-2 (0-5) /HPF Urine Microscopic WBC 0-2 (0-5) /HPF Ur Epithelial Cells None Seen (None Seen) /HPF Urine Bacteria None Seen (None Seen) /HPF Urine Culture Reflexed NO (NO) Urine HCG, Qual (NEGATIVE) Urine Opiates Level NEGATIVE (NEGATIVE) Ur Methadone NEGATIVE (NEGATIVE) Urine Barbiturates NEGATIVE (NEGATIVE) Ur Phencyclidine (PCP) NEGATIVE (NEGATIVE) Urine Amphetamine NEGATIVE (NEGATIVE) U Benzodiazepine Level POSITIVE A (NEGATIVE) Urine Cocaine NEGATIVE (NEGATIVE) Urine Marijuana (THC) NEGATIVE (NEGATIVE) Ethyl Alcohol (0-10) mg/dL 02/13/25 02/13/25 02/13/25 Range/Units 23:05 23:05 23:05 WBC 5.2 (3.98-10.04) x10^3/uL RBC 3.75 L (3.93-5.22) x10^6/uL Hgb 11.8 (11.2-15.7) g/dL Hct 36.4 (34.1-44.9) % MCV 97.1 H (79.4-94.8) fL MCH 31.5 (25.6-32.2) pg MCHC 32.4 (32.2-35.5) g/dL RDW 12.1 (11.7-14.4) % Plt Count 263 (182-369) x10^3/uL MPV 9.4 (9.4-12.3) fL Gran % 60.5 (34.0-71.1) % Immature Gran % (Auto) 0.4 (0.001-0.429) % Nucleat RBC Rel Count 0.0 (0.00-0.2) % Eos # (Auto) 0.17 (0.04-0.36) x10^3/uL Immature Gran # (Auto) 0.02 (0.001-0.031) x10^3u/L Absolute Lymphs (auto) 1.52 (1.18-3.74) x10^3/uL Absolute Monos (auto) 0.32 (0.24-0.86) x10^3/uL Absolute Nucleated RBC 0.00 (0.00-0.012) x10^3u/L Lymphocytes % 29.0 (19.3-51.7) % Monocytes % 6.1 (4.7-12.5) % Eosinophils % 3.2 (0.7-5.8) % Basophils % 0.8 (0.1-1.2) % Absolute Granulocytes 3.17 (1.56-6.13) x10^3/uL Basophils # 0.04 (0.01-0.08) x10^3/uL Sodium 141 (135-145) mmol/L Potassium 3.4 L (3.5-5.1) mmol/L Chloride 106 (98-107) mmol/L Carbon Dioxide 21 L (22-30) mmol/L Anion Gap 16.9 H (5-15) MEQ/L BUN 4 L (7-17) mg/dL Creatinine 0.52 (0.52-1.04) mg/dL Estimated GFR 120.4 ML/MIN Glucose 166 H (74-106) mg/dL POC Glucometer (74 to 106) mg/dL Lactic Acid (0.4-2.0) Calcium 9.0 (8.4-10.2) mg/dL Magnesium 1.9 (1.6-2.3) mg/dL Total Bilirubin < 0.10 L (0.2-1.3) mg/dL AST 24 (14-36) U/L ALT 16 (0-35) U/L Alkaline Phosphatase 47 (38-126) U/L Troponin I < 0.012 (0.000-0.033) ng/mL Serum Total Protein 7.3 (6.3-8.2) g/dL Albumin 4.5 (3.5-5.0) g/dL Urine Color (Yellow) Urine Appearance (Clear) Urine pH (4.6-8.0) Ur Specific Bangs (1.005-1.030) Urine Protein (Negative) Urine Glucose (UA) (Negative) mg/dL Urine Ketones (Negative) Urine Blood (Negative) Urine Nitrite (Negative) Urine Bilirubin (Negative) Urine Urobilinogen (0.2) mg/dL Ur Leukocyte Esterase (Negative) U Hyaline Cast (Auto) (0-2) /LPF Urine Microscopic RBC (0-5) /HPF Urine Microscopic WBC (0-5) /HPF Ur Epithelial Cells (None Seen) /HPF Urine Bacteria (None Seen) /HPF Urine Culture Reflexed (NO) Urine HCG, Qual (NEGATIVE) Urine Opiates Level (NEGATIVE) Ur Methadone (NEGATIVE) Urine Barbiturates (NEGATIVE) Ur Phencyclidine (PCP) (NEGATIVE) Urine Amphetamine (NEGATIVE) U Benzodiazepine Level (NEGATIVE) Urine Cocaine (NEGATIVE) Urine Marijuana (THC) (NEGATIVE) Ethyl Alcohol (0-10) mg/dL 02/13/25 02/13/25 02/14/25 Range/Units 23:36 23:48 01:33 WBC (3.98-10.04) x10^3/uL RBC (3.93-5.22) x10^6/uL Hgb (11.2-15.7) g/dL Hct (34.1-44.9) % MCV (79.4-94.8) fL MCH (25.6-32.2) pg MCHC (32.2-35.5) g/dL RDW (11.7-14.4) % Plt Count (182-369) x10^3/uL MPV (9.4-12.3) fL Gran % (34.0-71.1) % Immature Gran % (Auto) (0.001-0.429) % Nucleat RBC Rel Count (0.00-0.2) % Eos # (Auto) (0.04-0.36) x10^3/uL Immature Gran # (Auto) (0.001-0.031) x10^3u/L Absolute Lymphs (auto) (1.18-3.74) x10^3/uL Absolute Monos (auto) (0.24-0.86) x10^3/uL Absolute Nucleated RBC (0.00-0.012) x10^3u/L Lymphocytes % (19.3-51.7) % Monocytes % (4.7-12.5) % Eosinophils % (0.7-5.8) % Basophils % (0.1-1.2) % Absolute Granulocytes (1.56-6.13) x10^3/uL Basophils # (0.01-0.08) x10^3/uL Sodium (135-145) mmol/L Potassium (3.5-5.1) mmol/L Chloride (98-107) mmol/L Carbon Dioxide (22-30) mmol/L Anion Gap (5-15) MEQ/L BUN (7-17) mg/dL Creatinine (0.52-1.04) mg/dL Estimated GFR ML/MIN Glucose (74-106) mg/dL POC Glucometer (74 to 106) mg/dL Lactic Acid 4.8 H (0.4-2.0) Calcium (8.4-10.2) mg/dL Magnesium (1.6-2.3) mg/dL Total Bilirubin (0.2-1.3) mg/dL AST (14-36) U/L ALT (0-35) U/L Alkaline Phosphatase (38-126) U/L Troponin I (0.000-0.033) ng/mL Serum Total Protein (6.3-8.2) g/dL Albumin (3.5-5.0) g/dL Urine Color (Yellow) Urine Appearance (Clear) Urine pH (4.6-8.0) Ur Specific Bangs (1.005-1.030) Urine Protein (Negative) Urine Glucose (UA) (Negative) mg/dL Urine Ketones (Negative) Urine Blood (Negative) Urine Nitrite (Negative) Urine Bilirubin (Negative) Urine Urobilinogen (0.2) mg/dL Ur Leukocyte Esterase (Negative) U Hyaline Cast (Auto) (0-2) /LPF Urine Microscopic RBC (0-5) /HPF Urine Microscopic WBC (0-5) /HPF Ur Epithelial Cells (None Seen) /HPF Urine Bacteria (None Seen) /HPF Urine Culture Reflexed (NO) Urine HCG, Qual NEGATIVE (NEGATIVE) Urine Opiates Level (NEGATIVE) Ur Methadone (NEGATIVE) Urine Barbiturates (NEGATIVE) Ur Phencyclidine (PCP) (NEGATIVE) Urine Amphetamine (NEGATIVE) U Benzodiazepine Level (NEGATIVE) Urine Cocaine (NEGATIVE) Urine Marijuana (THC) (NEGATIVE) Ethyl Alcohol 165 H (0-10) mg/dL Accuchecks Date 02/13/25 Time 22:40 Impressions & Recommendations - ED Arrival Time ED Arrival Date & Time: ED Arrival Date and Time 02/13/25 22:30 Last known well time: - NIHSS IV Thrombolysis Standard of Care: IV thrombolysis as a standard of care in acute stroke discussed with ROOPA MUNIZ. Risk, benefits, and options of IV thrombolytic therapy for acute ischemic stroke were discussed with the patient/family LALITO REA. We discussed that use of IV tenecteplase is in line with national stroke guidelines. We discussed that risks of IV thrombolytic use include intracranial hemorrhage, other fatal bleeding risks, and angioedema. Alternatives of treatment, including not proceeding with thrombolytic therapy were discussed. - Recommendations Recommendations: -Neuro checks, NIHSS, vital signs monitoring as per post tenecteplase protocol -Repeat non contrast head CT or noncontrast MRI brain 24 hours after IV thrombolyltic administration. -Obtain STAT non contrast head CT if there are new neurological deficits, worsening of current deficits, or with complaint of severe headache. Notify Neurology EFE of changes in neurological exam. -Nicardipine gtt as needed to maintain BP< 180/105 x 24hr post tenecteplase administration. -Monitor for angioedema -SCD's for DVT prophylaxis. Work up: -Basic labs (CBC, BMP, TSH+T4) if not done already. -INR,PTT if not done already -Fasting Lipid Panel and Hgb A1c -Transthroacic echocardiogram [with bubble study] -EKG + Telemetry- monitor for A-FIB Secondary Stroke Prevention -Hold off on antiplatelet therapy x 24 hr post IV thrombolytic therapy Decision to initiate antiplatelet therapy, or anticoagulation if needed, will be based on repeat imaging at 24 hour post thrombolytic administration. -If not medical contraindication, start high intensity statin. Eg. Atrovastatin 80 mg daily Risk Factor Management -HTN control: BP <180/105 for first 24 hr post tenecteplase -If diabetic, optimize glucose control: prison goal HgA1c <7 -HLD control: Long-term goal LDL <70. High intensity statin recommended. Moderate intensity statin in patients > 75 years. -Smoking Alcohol Use Drug use cessation counseling Stroke Rehabilitation: -Physical therapy, occupational therapy, speech therapy consults -Social work and case management consults for help with discharge needs. Impression and recommendation were discussed with Dr. ROOPA MUNIZ Thank you for allowing us to participate in this patient's care. Please call [facility] with questions, concerns, or change in patient's neurological status. This consult was performed via secure telemedicine audio/visual platform with [ ] RN assisting at bedside. Patient identity verified and consent obtained. TIQ recieved at [ ] Neuro Cart Time: Delays in Patient Encounter: Assessment & Plan - Encounter Encounter: "The entirety of this encounter was performed via Telemedicine using audio and visual "
[2025-02-14 05:01] VITALS: O2SAT 98
[2025-02-14 05:03] VITALS: BP 106/75; PULSE 97; RESP 18
== END 2025-02-14 05:10 | disposition home or self-care (01) ==
LOC: ED 22:30
DX: G40.909 Epilepsy, unspecified, not intractable, without status epilepticus (principal); Z79.899 Other long term (current) drug therapy
CPT/HCPCS: 36415; 80053; 80307; 81001; 81025; 82077; 82550; 82947; 83605; 83735; 84484; 85025; 93005; 93041; 94760; 96361; 96365; 99284; P9612; Q3014